=== PATIENT | female | born 1945 | race Caucasian/White ===

== ENCOUNTER 2017-07-05 19:53 | Inpatient (IN) | payer OTHER ==
[~2017-07-05] VITALS: Ht 175.3 cm; Wt 91.1 kg
[~2017-07-05 19:53] MED LIST: ASPI81TA28 PO; ATOR-24 PO; BIOF500T PO; CALC500C3 PO; COEN100C28 PO; GARL400T5 PO; GLUC1CAP35 PO; HYDR50TA3 PO; LISI-729 PO; METO25TA3 PO; MULT-190 PO; MULT-506 PO; OMEG12006 PO
[2017-07-05] MEDS ORDERED: SODIUM CHLORIDE 0.9% 1000ML 1,000 ML IV STA (20:06)
[2017-07-05 20:15] LABS: BASO % 0.1 %; BASO ABS # 0.02 K/uL (0-0.2); COMPLETE YES; EOS % 1.5 %; HEMATOCRIT 43.7 % (37-47); IG% 0.4 %; LYMPH % 16.9 %; LYMPH ABS # 2.42 K/uL (1.2-3.4); MEAN CELL VOLUME 91.2 fL (80-100); MEAN CORPUSCULAR HEMOGLOBIN 30.1 pg (25-34); MONO % 5.4 %; NEUT % 75.7 %; PLATELET COUNT 269 K/uL (130-400); RED BLOOD COUNT 4.79 M/uL (4.2-5.4); WHITE BLOOD COUNT 14.32 K/uL (4.8-10.8)
--- NOTE | 2017-07-05 20:20 | EMERGENCY ROOM VISIT NOTE ---
History Report prepared by Howard: Shayna Conner Under the Supervision of: Dr. Kaushik Soto M.D. First contact with patient: 19:55 Stated Complaint: SYNCOPE History of Present Illness The patient is a 71 year old female who presents to the Emergency Room with complaints of an episode of syncope occurring prior to arrival. Per EMS, the patient had a single syncopal episode in [employer] and has a cardiac history. The patient states that she felt like she had tunnel vision and felt white around her neck. She notes that she last ate crackers and tomato juice for dinner three hours ago. She notes that she had meat at lunch and that this is a normal dinner for her. The patient complains of nausea. The patient denies any strenuous activity and is unsure if she ever passed out before. The patient notes that she is scheduled for a stress test five days from now. Source of History: patient Onset: occurring prior to arrival Position: other (global) Quality: other (global) Timing: other (episode) Associated Symptoms: + nausea Note: The patient complains of tunnel like vision and feeling white around her neck. The patient denies any recent strenuous activity. Review of Systems See HPI for pertinent positives & negatives. A total of 10 systems reviewed and were otherwise negative. Past Medical & Surgical Medical Problems: (1) Benign hypertension (2) Carotid endarterectomy (3) Hyperlipidemia Family History Heart disease Social History Smoking Status: Never Smoker Alcohol Use: none Housing Status: lives alone Occupation Status: employed Current/Historical Medications Scheduled Aspirin (Aspirin Ec), 81 MG PO QPM Atorvastatin (Lipitor), 40 MG PO QPM Bioflavonoid Products (Christy-C), 500-550 MG PO QAM Coenzyme Q10 (Ubidecarenone) (Co Q10), 100 MG PO QAM Garlic (Garlique), 400 MG PO QAM Qkgjzegghtb-Dyxqlffyihc-Pnl C- (Glucosamine Chondroitin), 1 CAP PO QAM Hydrochlorothiazide (Hctz), 50 MG PO QPM Lisinopril (Prinivil), 5 MG PO QPM Metoprolol Succ (Toprol Xl) (Toprol-Xl), 12.5 MG PO QPM Multivitamin (Multivitamin), 1 TAB PO QAM Ocuvite Preservision (Ocuvite Preservision), 1 TAB PO QAM Bradley-3 Fatty Acids (Bradley 3), 1 CAP PO QAM Allergies Coded Allergies: Aspirin (Unverified Allergy, Mild, HIVES, 07/05/17) Physical Exam Vital Signs Date Time Temp Pulse Resp B/P (MAP) Pulse Ox O2 Delivery O2 Flow Rate FiO2 07/05/17 22:43 107 28 07/05/17 22:38 109 23 07/05/17 22:33 97 27 95 07/05/17 22:28 109 32 93 07/05/17 22:23 107 28 93 07/05/17 22:18 108 26 95 07/05/17 22:13 108 27 95 07/05/17 22:08 107 26 94 07/05/17 22:03 108 25 98 07/05/17 21:58 108 29 99 07/05/17 21:48 104 21 92 07/05/17 21:43 104 23 96 07/05/17 21:38 99 22 90 07/05/17 21:33 102 25 95 07/05/17 21:30 149/69 07/05/17 21:28 101 26 91 07/05/17 21:23 101 15 89 07/05/17 21:18 100 9 93 07/05/17 21:13 102 23 96 07/05/17 21:08 102 28 93 07/05/17 21:03 103 18 98 07/05/17 21:01 139/83 07/05/17 20:58 93 25 97 07/05/17 20:53 98 27 95 07/05/17 20:52 97 140/72 Room Air 102 151/85 109 143/82 07/05/17 20:52 96 Room Air 07/05/17 20:48 98 17 07/05/17 20:47 143/82 07/05/17 20:46 151/85 07/05/17 20:44 140/72 07/05/17 20:43 97 21 100 07/05/17 20:38 97 20 99 07/05/17 20:33 95 30 98 07/05/17 20:30 140/82 07/05/17 20:28 95 27 97 07/05/17 20:23 97 21 98 07/05/17 20:22 96 Room Air 07/05/17 20:22 36.5 100 18 149/84 96 Room Air 07/05/17 20:18 93 13 96 07/05/17 20:13 96 19 07/05/17 20:10 96 07/05/17 20:08 97 26 99 07/05/17 20:03 144/84 Physical Exam GENERAL: Patient is a healthy-appearing well-nourished HEAD: Normocephalic atraumatic EYES: Ocular movements intact pupils equal and react to light OROPHARYNX mucous membranes are moist no exudates present no erythema or edema present NECK: Supple no nuchal rigidity CHEST: Good equal expansion LUNGS: Clear and equal to auscultation CARDIAC: Normal S1 and S2 ABDOMEN: Soft nontender no guarding BACK: No CVA tenderness EXTREMITIES: No pain upon palpation normal muscle strength in all groups no clubbing cyanosis or edema NEURO: Patient is following commands and answering questions appropriately. Alert and oriented x3 Cranial Nerves 2-12 grossly intact Medical Decision & Procedures ER Provider Diagnostic Interpretation: Radiology results as stated below per my review and radiologist interpretation: CHEST ONE VIEW PORTABLE HISTORY: Pt c/o syncope COMPARISON: None. FINDINGS: The lungs are clear. Cardiac silhouette is normal in size. No pleural effusions. No pneumothorax. IMPRESSION: No acute process. Electronically signed by: Papito Mann M.D. 07/05/2017 9:15 PM Dictated Date/Time: 07/05/2017 9:14 PM Laboratory Results 07/05/17 19:42 Red Blood Count 4.79, Mean Corpuscular Volume 91.2, Mean Corpuscular Hemoglobin 30.1, Mean Corpuscular Hemoglobin Concent 33.0, Mean Platelet Volume 10.0, Neutrophils (%) (Auto) 75.7, Lymphocytes (%) (Auto) 16.9, Monocytes (%) (Auto) 5.4, Eosinophils (%) (Auto) 1.5, Basophils (%) (Auto) 0.1, Neutrophils # (Auto) 10.83, Lymphocytes # (Auto) 2.42, Monocytes # (Auto) 0.78, Eosinophils # (Auto) 0.21, Basophils # (Auto) 0.02 07/05/17 19:42 Test 07/05/17 19:42 07/05/17 20:20 07/05/17 20:32 07/05/17 22:00 White Blood Count 14.32 K/uL (4.8-10.8) Red Blood Count 4.79 M/uL (4.2-5.4) Hemoglobin 14.4 g/dL (12.0-16.0) Hematocrit 43.7 % (37-47) Mean Corpuscular Volume 91.2 fL (80-100) Mean Corpuscular Hemoglobin 30.1 pg (25-34) Mean Corpuscular Hemoglobin Concent 33.0 g/dl (32-36) Platelet Count 269 K/uL (130-400) Mean Platelet Volume 10.0 fL (7.4-10.4) Neutrophils (%) (Auto) 75.7 % Lymphocytes (%) (Auto) 16.9 % Monocytes (%) (Auto) 5.4 % Eosinophils (%) (Auto) 1.5 % Basophils (%) (Auto) 0.1 % Neutrophils # (Auto) 10.83 K/uL (1.4-6.5) Lymphocytes # (Auto) 2.42 K/uL (1.2-3.4) Monocytes # (Auto) 0.78 K/uL (0.11-0.59) Eosinophils # (Auto) 0.21 K/uL (0-0.5) Basophils # (Auto) 0.02 K/uL (0-0.2) RDW Standard Deviation 43.2 fL (36.4-46.3) RDW Coefficient of Variation 13.1 % (11.5-14.5) Immature Granulocyte % (Auto) 0.4 % Immature Granulocyte # (Auto) 0.06 K/uL (0.00-0.02) D-Dimer 460 ug/L FEU (0-500) Est Creatinine Clear Calc Drug Dose 63.3 ml/min Estimated GFR () 68.1 Estimated GFR (Non- 58.8 BUN/Creatinine Ratio 25.2 (10-20) Calcium Level 9.7 mg/dl (8.5-10.1) Magnesium Level 1.9 mg/dl (1.8-2.4) Total Bilirubin 0.8 mg/dl (0.2-1) Direct Bilirubin 0.2 mg/dl (0-0.2) Aspartate Amino Transf (AST/SGOT) 28 U/L (15-37) Alanine Aminotransferase (ALT/SGPT) 36 U/L (12-78) Alkaline Phosphatase 110 U/L (45-117) Total Creatine Kinase 131 U/L (26-192) Creatine Kinase MB 2.8 ng/ml (0.5-3.6) Creatine Kinase MB Ratio 2.1 (0-3.0) Troponin I < 0.015 ng/ml (0-0.045) Total Protein 8.1 gm/dl (6.4-8.2) Albumin 3.8 gm/dl (3.4-5.0) Thyroid Stimulating Hormone (TSH) 7.300 uIu/ml (0.300-4.500) Free Thyroxine 1.04 ng/dl (0.80-1.60) Free Triiodothyronine 2.88 pg/ml (2.30-4.20) Bedside Hemoglobin 14.3 g/dl (12.0-16.0) Bedside Hematocrit 42 % (37-47) Bedside Sodium 141 mEq/L (135-144) Bedside Potassium 3.3 mEq/L (3.3-5.0) Bedside Chloride 102 mEq/L (101-112) Bedside Total CO2 27 mEq/l (24-31) Anion Gap 16.0 mmol/L (16-25) Bedside Blood Urea Nitrogen 25 mg/dl (7-18) Bedside Creatinine 0.8 mg/dl (0.6-1.3) Bedside Glucose (other) 123 mg/dl (70-99) Bedside Ionized Calcium (Cynthia) 1.13 mmol/l (1.12-1.32) Bedside D-Dimer > 450 ng/mlFEU (0-450) Urine Color YELLOW Urine Appearance CLOUDY (CLEAR) Urine pH 5.5 (4.5-7.5) Urine Specific [place] 1.025 (1.000-1.030) Urine Protein NEG (NEG) Urine Glucose (UA) NEG (NEG) Urine Ketones TRACE (NEG) Urine Occult Blood NEG (NEG) Urine Nitrite NEG (NEG) Urine Bilirubin NEG (NEG) Urine Urobilinogen NEG (NEG) Urine Leukocyte Esterase MODERATE (NEG) Urine WBC (Auto) 10-30 /hpf (0-5) Urine RBC (Auto) 0-4 /hpf (0-4) Urine Hyaline Casts (Auto) 1-5 /lpf (0-5) Urine Epithelial Cells (Auto) >30 /lpf (0-5) Urine Bacteria (Auto) 3+ (NEG) Urine Pathogenic Casts /lpf (0) Test 07/05/17 23:17 Lactic Acid Level 1.7 mmol/L (0.4-2.0) Labs reviewed by ED physician. Medications Administered Medications (Trade) Dose Ordered Sig/Ellie Route Start Time Stop Time Status Last Admin Dose Admin Sodium Chloride 1,000 ml @ 999 mls/hr Q1H1M STAT IV 07/05/17 20:06 07/05/17 21:06 DC 07/05/17 20:06 999 MLS/HR Potassium Chloride (Gely Ciel Elix) 70 meq NOW STAT PO 07/05/17 20:22 07/05/17 20:24 DC 07/05/17 20:43 70 MEQ Ondansetron HCl (Zofran Inj) 4 mg NOW STAT IV 07/05/17 21:10 07/05/17 21:11 DC 07/05/17 21:18 4 MG Ceftriaxone Sodium (Rocephin Inj) 1 gm NOW STAT IV 07/05/17 22:20 07/05/17 22:21 DC 07/05/17 22:35 1 GM Promethazine HCl 12.5 mg/Sodium Chloride 50.5 ml @ 204 mls/hr NOW STAT IV 07/06/17 00:07 07/06/17 00:21 DC 07/06/17 00:44 204 MLS/HR ECG Indication: syncope Rate (beats per minute): 96 Rhythm: normal sinus Findings: no acute ischemic change, no ectopy Comparison ECG Date: October 28, 2013 Change: no significant change ED Course 1955: Past medical records reviewed. The patient was evaluated in room B12B. A complete history and physical examination was performed. 2005: Ordered NSS 1000 ml @ 999 mls/hr IV. 2021: Ordered Potassium Chloride 70 meq PO. 2109: Ordered Zofran Inj 4 mg IV. 2157: I reevaluated the patient and she is doing well. I updated her family. 2219: Ordered Rocephin Inj 1 gm IV. 2250: I reevaluated the patient and she is doing okay. 2305: I discussed the patient's case with Dr. Hunter, he has agreed to evaluate the patient for further management and care. Medical Decision Etiologies such as vasovagal event, infection, hypoglycemia, electrolyte abnormalities, cardiac sources, intracerebral event, toxicologic, neurologic, as well as others were entertained. This is a 71-year-old female who presents emergency department after having a syncopal episode. The patient is scheduled for stress test on Sunday. She does appear to have a urinary tract infection was started on Rocephin. In addition due to error, two d-dimers were run on this patient. The laboratory 1 which I feel is more accurate was found to be normal. The patient was given fluid bolus in the emergency department however she vomited up her potassium. I did discuss the case with the hospitalist service who agreed to admit the patient. Patient was in agreement with the treatment plan. Medication Reconcilliation Current Medication List: was personally reviewed by me Blood Pressure Screening Patient's blood pressure: Elevated blood pressure Will be further monitored by the hospitalist. Consults Time Called: [phone] Consulting Physician: Dr. Hunter Returned Call: [phone] I discussed the patient's case with Dr. Hunter, he has agreed to evaluate the patient for further management and care. Impression Primary Impression: Syncope Additional Impressions: UTI (urinary tract infection) Chest pain Scribe Attestation The scribe's documentation has been prepared under my direction and personally reviewed by me in its entirety. I confirm that the note above accurately reflects all work, treatment, procedures, and medical decision making performed by me. Departure Information Dispostion Being Evaluated By Hospitalist Referrals Kiesha Hernández D.O. (PCP) Problem Qualifiers Primary Impression: Syncope Syncope type: unspecified Qualified Codes: R55 - Syncope and collapse Additional Impressions: UTI (urinary tract infection) Urinary tract infection type: acute cystitis Hematuria presence: without hematuria Qualified Codes: N30.00 - Acute cystitis without hematuria Chest pain Chest pain type: unspecified Qualified Codes: R07.9 - Chest pain, unspecified
[2017-07-05] MEDS ORDERED: POTASSIUM CHLORIDE 20 MEQ/15 ML UDC PO STA (20:22)
[2017-07-05 20:32] LABS: ISTAT CREATININE 0.8 mg/dl (0.6-1.3); ISTAT HEMOGLOBIN 14.3 g/dl (12.0-16.0); ISTAT IONIZED CALCIUM 1.13 mmol/l (1.12-1.32)
[2017-07-05 20:36] LABS: ALT/SGPT 36 U/L (12-78); BLOOD UREA NITROGEN 25 mg/dl (7-18); BUN/CREATININE RATIO 25.2 (10-20); CALCIUM 9.7 mg/dl (8.5-10.1); CARBON DIOXIDE 30 mmol/L (21-32); CHLORIDE 99 mmol/L (98-107); CREATININE 0.97 mg/dl (0.60-1.20); GLUCOSE 134 mg/dl (70-99); POTASSIUM 3.5 mmol/L (3.5-5.1); SODIUM 140 mmol/L (136-145)
[2017-07-05 20:46] LABS: ALKALINE PHOSPHATASE 110 U/L (45-117); AST/SGOT 28 U/L (15-37); CKMB/CK RATIO 2.1 (0-3.0)
[2017-07-05] MEDS ORDERED: ONDANSETRON INJ 2 MG/ML 2 ML VIAL IV STA (21:10)
--- NOTE | 2017-07-05 21:16 | DIAGNOSTIC IMAGING REPORT ---
CHEST ONE VIEW PORTABLE HISTORY: Pt c/o syncope COMPARISON: None. FINDINGS: The lungs are clear. Cardiac silhouette is normal in size. No pleural effusions. No pneumothorax. IMPRESSION: No acute process. Electronically signed by: Papito Mann M.D. 07/05/2017 9:15 PM Dictated Date/Time: 07/05/2017 9:14 PM
[2017-07-05] MEDS ORDERED: CEFTRIAXONE SOD INJ 1 GM ADDVIAL IV STA (22:20)
[2017-07-05 22:36] LABS: URINE APPEARANCE CLOUDY (CLEAR); URINE BILIRUBIN NEG (NEG); URINE COLOR YELLOW; URINE EPITHELIAL CELL AUTO >30 /lpf (0-5); URINE NITRITE NEG (NEG); URINE PH 5.5 (4.5-7.5); URINE SPECIFIC GRAVITY 1.025 (1.000-1.030); UROBILINOGEN NEG (NEG)
[2017-07-05 22:38] LABS: MANUAL MICROSCOPIC REQUIRED? NO; REVIEW REQ? YES
[2017-07-05 22:47] LABS: ZZUR CULT IF INDIC CLEAN CATCH YES
[2017-07-05 23:31] LABS: MAGNESIUM 1.9 mg/dl (1.8-2.4)
[2017-07-06] VITALS (11 sets, daily range): BP systolic 111–138; BP diastolic 70–91; PULSE 82–121; TEMP 36.4–37.8; O2SAT 90–97; Ht 175.3 cm; Wt 91.1 kg
[2017-07-06] MEDS ORDERED: PROMETHAZINE HCL INJ 12.5 MG in SODIUM CHLORIDE 0.9% 50ML 50 ML IV STA (00:07)
[2017-07-06] MEDS ORDERED: OPTIRAY 320 IV PRN (00:15)
[2017-07-06] MEDS ORDERED: METOPROLOL SUCC 25MG EXT REL TAB PO ONE (01:12)
[2017-07-06] MEDS ORDERED: PANTOprazole INJ 40 MG in SYRINGE 0 ML IV STA (01:13)
[2017-07-06] MEDS ORDERED: TRAMADOL HCL 50 MG TAB PO PRN (01:15)
[2017-07-06] MEDS ORDERED: NITROGLYCERIN 0.4 MG SL PER TAB CHARGE SL PRN (01:15)
[2017-07-06] MEDS ORDERED: ONDANSETRON INJ 2 MG/ML 2 ML VIAL IV PRN (01:15)
[2017-07-06] MEDS ORDERED: ACETAMINOPHEN 325 MG TAB PO PRN (01:15)
[2017-07-06] MEDS ORDERED: LACTATED RINGER'S 1000ML 1,000 ML IV SCH (01:30)
[2017-07-06] MEDS ORDERED: LACTATED RINGER'S 1000ML 1,000 ML IV ONE (02:30)
[2017-07-06] MEDS ORDERED: ACETAMINOPHEN 325 MG TAB PO ONE (04:08)
--- NOTE | 2017-07-06 06:15 | HISTORY & PHYSICAL EXAMINATION ---
DATE OF ADMISSION: 07/06/2017 PRIMARY CARE DOCTOR: Dr. Hernádnez CHIEF COMPLAINT: Syncope. HISTORY OF PRESENT ILLNESS: History obtained from the patient, family, and records. Medical history is significant for hypertension, PVD status post surgery, hyperlipidemia. Recent confinement was in October 2013 for complicated migraine with transient global amnesia. Patient was seen at the PCP's office about 3 weeks ago. Patient complained to the PCP of occasional chest pain with exertion, tightness and squeezing. No other symptoms. Outpatient stress test was recommended. Yesterday morning, she was not feeling very well, had reflux symptoms going to her throat, achy epigastric discomfort with some nausea. Denies bladder symptoms. Bowel movement. She was at [employer] with her son when patient was noted to look uncomfortable.. She told her son that she needed to go to a hospital. Patient passed out for a few seconds. Patient also complaining of some left-sided headache symptoms, achy, similar to migraine attack. No incontinence, no tongue biting, no witnessed seizure activity. Patient was brought to the Emergency Room. She had an episode of emesis. Given ceftriaxone for possible UTI. MEDICAL HISTORY: As above. Carotid Dopplers done in September 2016 showed less than 60% stenosis both carotids. SURGERIES: Carotid endarterectomy and vaginal myomectomy of cervical fibroid. HOME MEDICATIONS: Include; aspirin, Lipitor, Coenzyme Q, garlic, glucosamine, HCTZ, lisinopril, Toprol, multivitamins, omega 3 and Ocuvite. ALLERGIES: TO ASPIRIN IN EXCESSIVE AMOUNTS, WHICH CAUSES HIVES. FAMILY HISTORY: Heart disease, thyroid disease, diabetes and hypertension. PERSONAL AND SOCIAL HISTORY: Nonsmoker. No chronic intake of alcoholic beverages. Retired [employer] employee. REVIEW OF SYSTEMS: As per HPI. All 10 systems were reviewed. All other ROS negative. PHYSICAL EXAMINATION: VITAL SIGNS: Blood pressure was noted to be 151/85, pulse rate 102, RR 25, temperature 37.8 and sats 91 on room air. GENERAL: Noted to be slightly uncomfortable in no respiratory distress. Orthostatic vitals were negative. SKIN: Normal color. Warm. HEENT: [place] palpebral conjuctivae. No ptosis. Dry buccal mucosa. NECK: No JVD. Supple. No tenderness. CHEST: Clear to auscultation. No tenderness. HEART: Regular rate and rhythm. No murmur. ABDOMEN: Some distension, nontender. EXTREMITIES: Minimal LE edema, no tenderness. No gross deformities noted on exam NE coherent, no gross focality. LABORATORIES: Hemoglobin was noted to be 14.4, hematocrit 40.7, white cell count 14 and platelets 269. Sodium was noted to be 140, potassium 3.5, chloride 99, CO2 30, BUN 25, creatinine 0.9 and glucose 134. UA; trace ketones, moderate WBC positive. CTA initial read; no pulmonary embolism. CT abdomen and pelvis initial read : atelectasis, sludge gallbladder, moderate amount of stool, abnormality left adnexa. CT head; no acute pathology. ASSESSMENT: 1. Syncope likely vasovagal from abdominal pain from uncontrolled GERD, urinary tract infection, possible sepsis. rule out cardiac dysfunction. 2. Hypertension, slightly elevated. 3. Peripheral vascular disease, status post surgery 4. Abnormal left adnexa on initial CT abdomen and pelvis read. PLAN: PCU PPI trial CS, IV ceftriaxone for now Hold home diuretics for now. TTE RE syncope Follow official CT abdomen and pelvis results. May need a pelvic ultrasound, outpatient Civil Service Clerk consult pending CT results PT/OT. DVT prophylaxis, Lovenox subQ. Full code. The patient's daughter is requesting for updates from provider ____ [phone]. MTDD
[2017-07-06 06:19] LABS: BASO % 0.1 %; BASO ABS # 0.01 K/uL (0-0.2); COMPLETE YES; EOS % 0.1 %; HEMATOCRIT 39.5 % (37-47); IG% 0.3 %; LYMPH % 2.9 %; LYMPH ABS # 0.41 K/uL (1.2-3.4); MEAN CELL VOLUME 91.4 fL (80-100); MEAN CORPUSCULAR HEMOGLOBIN 29.4 pg (25-34); MEAN CORPUSCULAR HGB CONC 32.2 g/dl (32-36); MEAN PLATELET VOLUME 9.7 fL (7.4-10.4); MONO % 2.7 %; NEUT % 93.9 %; PLATELET COUNT 231 K/uL (130-400); RED BLOOD COUNT 4.32 M/uL (4.2-5.4); WHITE BLOOD COUNT 14.36 K/uL (4.8-10.8)
[2017-07-06 06:29] LABS: INR 1.1 (0.9-1.1); PROTHROMBIN TIME (PATIENT) 11.4 SECONDS (9.0-12.0)
[2017-07-06 06:56] LABS: BLOOD UREA NITROGEN 24 mg/dl (7-18); BUN/CREATININE RATIO 31.3 (10-20); CALCIUM 8.3 mg/dl (8.5-10.1); CARBON DIOXIDE 29 mmol/L (21-32); CHLORIDE 106 mmol/L (98-107); CREATININE 0.78 mg/dl (0.60-1.20); GLUCOSE 120 mg/dl (70-99); POTASSIUM 4.1 mmol/L (3.5-5.1); SODIUM 140 mmol/L (136-145)
--- NOTE | 2017-07-06 07:10 | DIAGNOSTIC IMAGING REPORT ---
ABD/PELVIS IV CONTRAST ONLY CT DOSE: HISTORY: Pain abd pain TECHNIQUE: Multiaxial CT images of the abdomen and pelvis were performed following the use of intravenous contrast. A dose lowering technique was utilized adhering to the principles of ALARA. COMPARISON STUDY: None. FINDINGS: Minimal dependent basilar atelectasis. Liver is uniform. Spleen is unremarkable. Dependent sludge within the gallbladder lumen with potential polypoid change of the gallbladder fundus. Nonobstructive bowel pattern. Normal appendix. 1.5 cm right ovarian cyst. 4.5 cm left lateral exophytic uterine fibroid. No evidence for left ovarian enlargement. No free fluid in the pelvic cul-de-sac. Bladder is midline. IMPRESSION: 1. Left lateral 4.5 cm exophytic uterine fibroid. 2. Smaller 1.7 cm posterior lower uterine segment uterine fibroid. 3. 1.5 cm right ovarian cyst. 4. Sludge and/or debris within the dependent aspect of the gallbladder. Several small gallbladder fundal polyps. The above report was generated using voice recognition software. It may contain grammatical, syntax or spelling errors. Electronically signed by: Froylan Alcantara M.D. 07/06/2017 7:09 AM Dictated Date/Time: 07/06/2017 7:05 AM
--- NOTE | 2017-07-06 07:12 | DIAGNOSTIC IMAGING REPORT ---
(CHEST FOR PE) ANGIO WITH CT DOSE: 1174.01 mGy.cm HISTORY: 71 years-old Female presents with acute atypical chest pain and shortness of breath TECHNIQUE: Multiple CTA images of the chest were obtained after the intravenous administration of 93 ml Optiray 320. Coronal and sagittal MIPS were obtained from the axial data set and were submitted for review. A dose lowering technique was utilized adhering to the principles of ALARA. COMPARISON: Chest radiograph 07/05/2017. FINDINGS: CTA: Heart is mildly enlarged. No pericardial effusion. Coronary arterial calcifications are noted. The thoracic aorta is normal in course and caliber with moderate mixed plaquing. Aberrant right subclavian artery within a retroesophageal location is noted causing mild mass effect and compression of the adjacent esophagus. No aortic dissection or aneurysm. The pulmonary arterial tree is opacified to level of the distal segmental branches. The subsegmental branches are not well-seen secondary to respiratory motion. No focal filling defects identified to suggest pulmonary thromboembolic disease. CT CHEST: No dominant thyroid nodule identified. No pathologic adenopathy about the chest. There is no pneumothorax, pleural effusion, focal airspace consolidation or overt pulmonary edema. Mild dependent bibasilar atelectasis. There are a few scattered solid noncalcified nodules throughout the lungs bilaterally (please see bookmarks), the largest of which is within the lingula measuring 6 mm as seen on image 176 series 4. The remaining nodules measure 2-4 mm. Central airways are patent. Upper abdominal structures demonstrate no acute abnormality. Cholelithiasis without CT evidence of acute cholecystitis. Soft tissues are unremarkable. Bones appear intact. Multilevel endplate spurring of the spine. IMPRESSION: 1. No acute intrathoracic abnormality identified. No acute aortic pathology or evidence of pulmonary thromboembolic disease. 2. Several solid noncalcified pulmonary nodules are present bilaterally, largest of which is within the lingula measuring 6 mm. Follow-up guidelines provided below. 3. Aberrant right subclavian artery. 4. Mild cardiomegaly. Please refer to below summary of Fleischner criteria recommendations for follow-up of incidental CT nodules (Jammie Parekh, Guidelines for management of small pulmonary nodules detected on CT scans: A statement from the Fleischner Society, Radiology 237: [phone].) SOLID NODULES Multiple nodules size: <6 mm * Low risk patients: no routine follow-up * high risk patients: optional CT at 12 months Multiple nodules size: 6-8 mm * Low risk patients: follow-up at 3-6 months, then consider further follow-up at 18-24 months * high risk patients: follow-up at 3-6 months, then at 18-24 months if no change Note: newly detected indeterminate nodule in persons 35 years of age or older. * Low risk patients: minimal or absent history of smoking and/or other known risk factors * high risk patients: history of smoking or of other known risk factors (e.g. first degree relative with lung cancer, or exposure to asbestos, radon, uranium) * if a nodule up to 8 mm is partly solid or is ground glass further follow-up is required after 24 months to exclude possible slow growing adenocarcinoma (CRISTELA) The above report was generated using voice recognition software. It may contain grammatical, syntax or spelling errors. Electronically signed by: William Llanos M.D. 07/06/2017 7:10 AM Dictated Date/Time: 07/06/2017 7:02 AM
--- NOTE | 2017-07-06 07:25 | DIAGNOSTIC IMAGING REPORT ---
HEAD WITHOUT CONTRAST (CT) CLINICAL HISTORY: 71 years-old Female presenting with left-sided headache, syncope. TECHNIQUE: Multidetector CT imaging of the head was performed without the use of intravenous contrast. IV contrast: None. A dose lowering technique was used consistent with the principles of ALARA (as low as reasonably achievable). COMPARISON: CT head from 10/25/2013. CT DOSE (mGy.cm): The estimated cumulative dose is 614.27 mGy.cm. FINDINGS: Catalogue Clerk topogram: Unremarkable. Ventricles and sulci normal in size. Periventricular and subcortical white matter hypoattenuation, nonspecific but likely indicative of chronic small vessel ischemic change. No mass effect or midline shift. No hemorrhage or acute territorial infarct. No extra-axial fluid collection. Paranasal sinuses and mastoid air cells clear. Calvarium intact. IMPRESSION: 1. No acute intracranial abnormality. Electronically signed by: Michael Zepeda M.D. 07/06/2017 7:24 AM Dictated Date/Time: 07/06/2017 7:08 AM
[2017-07-06] MEDS: ENOXAPARIN 40 MG/0.4 ML SYR SC SCH (07:36)
[2017-07-06] MEDS: MULTIVITAMIN TAB PO SCH (07:36)
--- NOTE | 2017-07-06 08:22 | ECHOCARDIOGRAM REPORT ---
*NOTICE TO RECEIVING REPUBLICAN AGENCY This information is strictly Confidential and protected under [place] law. [place] law prohibits you from making any further disclosure of this information unless further disclosure is expressly permitted by the written consent of the person to whom it pertains or is authorized by law. A general authorization for the release of medical or other information is not sufficient for this purpose. Hospital accepts no responsibility if the information is made available to any other person, INCLUDING THE PATIENT. Interpretation Summary * Name: KENRICK PAIZ Study Date: 07/06/2017 07:12 AM BP: 117/70 mmHg * Patient Location: [facility] HR: 104 * : 1945 (M/d/yyyy) Gender: Female Height: 69 in * Age: 71 yrs Ethnicity: CA Weight: 196 lb * Ordering Physician: Pako Hunter * Referring Physician: Self, Referred * Performed By: Liz Rivera RCS * * Reason For Study: SYNCOPE * BSA: 2.0 m2 * -- Conclusions -- * Normal LV chamber size with mild concentric LVH. * Normal LV systolic function, EF 60-65%. * No segmental left ventricular wall motion abnormalities are noted. * Grade I diastolic dysfunction. * Aortic valve sclerosis moderate, without significant aortic valvular stenosis. Procedure Details * A complete two-dimensional transthoracic echocardiogram was performed (2D, M-mode, Doppler and color flow Doppler). Left Ventricle * The left ventricle is normal in size. * There is mild concentric left ventricular hypertrophy. * Left ventricular systolic function is normal. * No segmental left ventricular wall motion abnormalities are noted. * Ejection Fraction = 60-65%. * The left ventricular wall motion is normal. Right Ventricle * The right ventricular cavity size is normal (basal dimension <4.2 cm in right ventricular apical 4-chamber view). * The right ventricular systolic function is normal as assessed by tricuspid annular plane systolic excursion (TAPSE) (normal >1.5 cm). Atria * The left atrial size is normal. * Right atrial size is normal. * No ASD detected; PFO is not assessed. Mitral Valve * The mitral valve is normal in structure and function. Tricuspid Valve * The tricuspid valve is normal in structure and function. Aortic Valve * The aortic valve is trileaflet. * Aortic valve sclerosis moderate, without significant aortic valvular stenosis. * There is no significant aortic regurgitation. Pulmonic Valve * The pulmonary valve is not well seen, but the Doppler examination is normal without significant regurgitation or stenosis. Great Vessels * The aortic root is normal size. Pericardium/Pleural * There is no pericardial effusion. Left Ventricular Diastolic Function * Grade I diastolic dysfunction, (abnormal relaxation pattern). MMode 2D Measurements and Calculations IVSd 1.2 cm IVSs 1.8 cm LVIDd 3.8 cm LVIDs 2.3 cm LVPWd 1.1 cm LVPWs 1.5 cm IVS/LVPW 1.1 FS 40.6 % EDV(Teich) 62.9 ml ESV(Teich) 17.6 ml EF(Teich) 72.0 % EDV(cubed) 56.0 ml ESV(cubed) 11.8 ml EF(cubed) 79.0 % % IVS thick 46.5 % % LVPW thick 34.7 % LV mass(C)d 144.6 grams LV mass(C)dI 70.6 grams/m\S\2 LV mass(C)s 129.7 grams LV mass(C)sI 63.3 grams/m\S\2 SV(Teich) 45.3 ml SI(Teich) 22.1 ml/m\S\2 SV(cubed) 44.2 ml SI(cubed) 21.6 ml/m\S\2 Ao root diam 2.8 cm Ao root area 6.3 cm\S\2 ACS 1.8 cm LA dimension 3.2 cm LA/Ao 1.1 LVOT diam 2.0 cm LVOT area 3.0 cm\S\2 LVAd ap4 32.0 cm\S\2 LVLd ap4 7.6 cm EDV(MOD-sp4) 109.0 ml EDV(sp4-el) 113.6 ml LVAs ap4 19.8 cm\S\2 LVLs ap4 6.5 cm ESV(MOD-sp4) 49.8 ml ESV(sp4-el) 51.4 ml EF(MOD-sp4) 54.3 % EF(sp4-el) 54.8 % LVAd ap2 25.6 cm\S\2 LVLd ap2 7.2 cm EDV(MOD-sp2) 74.1 ml EDV(sp2-el) 76.8 ml LVAs ap2 16.3 cm\S\2 LVLs ap2 5.7 cm ESV(MOD-sp2) 38.3 ml ESV(sp2-el) 39.4 ml EF(MOD-sp2) 48.2 % EF(sp2-el) 48.7 % LVLd %diff -5.76 % EDV(MOD-bp) 92.8 ml LVLs %diff -13.22 % ESV(MOD-bp) 46.1 ml EF(MOD-bp) 50.3 % SV(MOD-sp4) 59.2 ml SI(MOD-sp4) 28.9 ml/m\S\2 SV(MOD-sp2) 35.7 ml SI(MOD-sp2) 17.4 ml/m\S\2 SV(MOD-bp) 46.7 ml SI(MOD-bp) 22.8 ml/m\S\2 SV(sp4-el) 62.2 ml SI(sp4-el) 30.4 ml/m\S\2 SV(sp2-el) 37.4 ml SI(sp2-el) 18.2 ml/m\S\2 Doppler Measurements and Calculations MV E max miguel 87.9 cm/sec MV A max miguel 134.3 cm/sec MV E/A 0.65 MV P1/2t max miguel 100.9 cm/sec MV P1/2t 51.5 msec MVA(P1/2t) 4.3 cm\S\2 MV dec slope 574.2 cm/sec\S\2 MV dec time 0.26 sec Ao V2 max 175.6 cm/sec Ao max PG 12.3 mmHg Ao max PG (full) 7.6 mmHg HIREN(V,A) 1.9 cm\S\2 HIREN(V,D) 1.9 cm\S\2 LV V1 max PG 4.7 mmHg LV V1 max 108.1 cm/sec PA V2 max 101.8 cm/sec PA max PG 4.1 mmHg TR max miguel 251.1 cm/sec
--- NOTE | 2017-07-06 16:42 | Progress Note ---
Medicine Progress Note Date & Time of Visit: Jul 06, 2017 at 16:10. Subjective Pt was seen and examined Lying in bed with no distress Pt said that she feels tired She said that she did not sleep well last night Because too much traffic in/out in her room She said that she tolerated regular diet Denies any chest pain, palpitation, dizziness and SOB Objective Last 8 Hrs Date Time Temp Pulse Resp B/P (MAP) Pulse Ox O2 Delivery O2 Flow Rate FiO2 07/06/17 15:00 37.1 82 18 127/73 (91) 94 Room Air 07/06/17 12:00 Room Air 07/06/17 11:17 37.1 94 18 138/76 (96) 94 Room Air Physical Exam: General- No acute distress Head- atraumatic Eyes- PERRL, EOMI ENT- oropharynx clear Neck- supple, no JVD Lungs- clear to auscultation Heart- regular rhythm; no murmur Abdomen- normal bowel sounds, soft Extremities- no pretibial edema, no calf tenderness Neuro- alert, oriented x 3; PERRL, EOMI; no facial palsy Skin- warm & dry Laboratory Results: Last 24 Hours Test 07/05/17 19:42 07/05/17 20:20 07/05/17 20:32 07/05/17 22:00 White Blood Count 14.32 K/uL Red Blood Count 4.79 M/uL Hemoglobin 14.4 g/dL Hematocrit 43.7 % Mean Corpuscular Volume 91.2 fL Mean Corpuscular Hemoglobin 30.1 pg Mean Corpuscular Hemoglobin Concent 33.0 g/dl Platelet Count 269 K/uL Mean Platelet Volume 10.0 fL Neutrophils (%) (Auto) 75.7 % Lymphocytes (%) (Auto) 16.9 % Monocytes (%) (Auto) 5.4 % Eosinophils (%) (Auto) 1.5 % Basophils (%) (Auto) 0.1 % Neutrophils # (Auto) 10.83 K/uL Lymphocytes # (Auto) 2.42 K/uL Monocytes # (Auto) 0.78 K/uL Eosinophils # (Auto) 0.21 K/uL Basophils # (Auto) 0.02 K/uL RDW Standard Deviation 43.2 fL RDW Coefficient of Variation 13.1 % Immature Granulocyte % (Auto) 0.4 % Immature Granulocyte # (Auto) 0.06 K/uL D-Dimer 460 ug/L FEU Sodium Level 140 mmol/L Potassium Level 3.5 mmol/L Chloride Level 99 mmol/L Carbon Dioxide Level 30 mmol/L Anion Gap 11.0 mmol/L 16.0 mmol/L Blood Urea Nitrogen 25 mg/dl Creatinine 0.97 mg/dl Est Creatinine Clear Calc Drug Dose 63.3 ml/min Estimated GFR () 68.1 Estimated GFR (Non- 58.8 BUN/Creatinine Ratio 25.2 Random Glucose 134 mg/dl Calcium Level 9.7 mg/dl Magnesium Level 1.9 mg/dl Total Bilirubin 0.8 mg/dl Direct Bilirubin 0.2 mg/dl Aspartate Amino Transf (AST/SGOT) 28 U/L Alanine Aminotransferase (ALT/SGPT) 36 U/L Alkaline Phosphatase 110 U/L Total Creatine Kinase 131 U/L Creatine Kinase MB 2.8 ng/ml Creatine Kinase MB Ratio 2.1 Troponin I < 0.015 ng/ml Total Protein 8.1 gm/dl Albumin 3.8 gm/dl Thyroid Stimulating Hormone (TSH) 7.300 uIu/ml Free Thyroxine 1.04 ng/dl Free Triiodothyronine 2.88 pg/ml Bedside Hemoglobin 14.3 g/dl Bedside Hematocrit 42 % Bedside Sodium 141 mEq/L Bedside Potassium 3.3 mEq/L Bedside Chloride 102 mEq/L Bedside Total CO2 27 mEq/l Bedside Blood Urea Nitrogen 25 mg/dl Bedside Creatinine 0.8 mg/dl Bedside Glucose (other) 123 mg/dl Bedside Ionized Calcium (Cynthia) 1.13 mmol/l Bedside D-Dimer > 450 ng/mlFEU Urine Color YELLOW Urine Appearance CLOUDY Urine pH 5.5 Urine Specific [place] 1.025 Urine Protein NEG Urine Glucose (UA) NEG Urine Ketones TRACE Urine Occult Blood NEG Urine Nitrite NEG Urine Bilirubin NEG Urine Urobilinogen NEG Urine Leukocyte Esterase MODERATE Urine WBC (Auto) 10-30 /hpf Urine RBC (Auto) 0-4 /hpf Urine Hyaline Casts (Auto) 1-5 /lpf Urine Epithelial Cells (Auto) >30 /lpf Urine Bacteria (Auto) 3+ Urine Pathogenic Casts /lpf Test 07/05/17 23:17 07/06/17 06:00 Lactic Acid Level 1.7 mmol/L White Blood Count 14.36 K/uL Red Blood Count 4.32 M/uL Hemoglobin 12.7 g/dL Hematocrit 39.5 % Mean Corpuscular Volume 91.4 fL Mean Corpuscular Hemoglobin 29.4 pg Mean Corpuscular Hemoglobin Concent 32.2 g/dl Platelet Count 231 K/uL Mean Platelet Volume 9.7 fL Neutrophils (%) (Auto) 93.9 % Lymphocytes (%) (Auto) 2.9 % Monocytes (%) (Auto) 2.7 % Eosinophils (%) (Auto) 0.1 % Basophils (%) (Auto) 0.1 % Neutrophils # (Auto) 13.48 K/uL Lymphocytes # (Auto) 0.41 K/uL Monocytes # (Auto) 0.39 K/uL Eosinophils # (Auto) 0.02 K/uL Basophils # (Auto) 0.01 K/uL RDW Standard Deviation 44.1 fL RDW Coefficient of Variation 13.3 % Immature Granulocyte % (Auto) 0.3 % Immature Granulocyte # (Auto) 0.05 K/uL Prothrombin Time 11.4 SECONDS Prothromb Time International Ratio 1.1 Sodium Level 140 mmol/L Potassium Level 4.1 mmol/L Chloride Level 106 mmol/L Carbon Dioxide Level 29 mmol/L Anion Gap 5.0 mmol/L Blood Urea Nitrogen 24 mg/dl Creatinine 0.78 mg/dl Est Creatinine Clear Calc Drug Dose 79.5 ml/min Estimated GFR () 88.6 Estimated GFR (Non- 76.5 BUN/Creatinine Ratio 31.3 Random Glucose 120 mg/dl Calcium Level 8.3 mg/dl Troponin I < 0.015 ng/ml Date/Time Source Procedure Growth Status 07/05/17 23:18 Blood Blood Culture Pending Received 07/05/17 23:13 Blood Blood Culture Pending Received 07/05/17 22:00 Urine , Clean Catch Urine Culture - Final MORE THAN THREE TYPES OF ORGANISMS MN... Complete Assessment & Plan Syncope Possible vasovagal CT head on admission showed no acute intracranial abnormality schedule for outpatient stress test on 07/10 Clinically stable ECHO showed * Normal LV chamber size with mild concentric LVH. * Normal LV systolic function, EF 60-65%. * No segmental left ventricular wall motion abnormalities are noted. * Grade I diastolic dysfunction. * Aortic valve sclerosis moderate, without significant aortic valvular stenosis. Abdominal discomfort GERD Tolerated clear liquid diet Diet advanced as tolerated Continue pantoprazole CT Abd/Pelvis showed Left lateral 4.5 cm exophytic uterine fibroid. 1.5 cm right ovarian cyst. Smaller 1.7 cm posterior lower uterine segment uterine fibroid. Elevated WBC Afebrile UA showed moderate leukocytes and 3+ bacteria Ucx grew more than 3 types of organisms On Rocephin Repeat urine follow up blood cx Continue monitor CBC Left uterine fibroid CT abd/pelvis showed left lateral 4.5 cm exophytic uterine fibroid. Will get pelvis u/s Consider outpatient [employer] consult Pulmonary nodules CT chest showed Several solid noncalcified pulmonary nodules are present bilaterally, largest of which is within the lingula measuring 6 mm. No history of smoking Follow up as per guideline Hypertension BP stable Continue lisinopril and metoprolol Peripheral vascular disease status post surgery Stable DVT px on lovenox subq Code Status FULL CODE Disposition Will discharge home tomorrow Current Inpatient Medications: Current Inpatient Medications Medications (Trade) Dose Ordered Sig/Ellie Route Start Time Stop Time Status Last Admin Dose Admin Ioversol (Optiray 320) 100 ml UD PRN IV 07/06/17 00:15 07/10/17 00:14 Enoxaparin Sodium (Lovenox Inj) 40 mg Q24H SC 07/06/17 09:00 08/05/17 08:59 07/06/17 07:36 40 MG Acetaminophen (Tylenol Tab) 650 mg Q4H PRN PO 07/06/17 01:15 08/05/17 01:14 Nitroglycerin (Nitrostat Tab) 0.4 mg UD PRN SL 07/06/17 01:15 08/05/17 01:14 Ondansetron HCl (Zofran Inj) 4 mg Q6H PRN IV 07/06/17 01:15 08/05/17 01:14 Tramadol HCl (Ultram Tab) 25 mg Q6H PRN PO 07/06/17 01:15 08/05/17 01:14 Pantoprazole Sodium (Protonix Tab) 40 mg QAM PO 07/07/17 09:00 08/06/17 08:59 Ceftriaxone Sodium 1 gm/ Dextrose 50 ml @ 100 mls/hr Q24H IV 07/06/17 23:00 07/09/17 23:29 Aspirin (Ecotrin Tab) 81 mg QPM PO 07/06/17 21:00 08/05/17 20:59 Atorvastatin Calcium (Lipitor Tab) 40 mg QPM PO 07/06/17 21:00 08/05/17 20:59 Lisinopril (Zestril Tab) 5 mg QPM PO 07/06/17 21:00 08/05/17 20:59 Metoprolol Succinate (Toprol Xl Tab) 12.5 mg QPM PO 07/06/17 21:00 08/05/17 20:59 Multivitamins (Multivitamin Tab) 1 tab QAM PO 07/06/17 09:00 08/05/17 08:59 07/06/17 07:36 1 TAB
[2017-07-06] MEDS ORDERED: METOPROLOL SUCC 25MG EXT REL TAB PO SCH (21:00)
[2017-07-06] MEDS ORDERED: ATORVASTATIN 20 MG TAB PO SCH (21:00)
[2017-07-06] MEDS ORDERED: LISINOPRIL 5 MG TAB PO SCH (21:00)
[2017-07-06] MEDS ORDERED: ASPIRIN 81 MG ECTAB PO SCH (21:00)
--- NOTE | 2017-07-06 21:26 | DIAGNOSTIC IMAGING REPORT ---
PELVIC ULTRASOUND CLINICAL HISTORY: Left lateral exophytic fibroid. COMPARISON STUDY: CT of the abdomen and pelvis July 06, 2017. TECHNIQUE: Transabdominal sonography of the pelvis was performed. FINDINGS: This exam is compromised given the lack of transvaginal imaging. The uterus measures 9.5 x 3.8 x 3.9 cm. Note is made of a 6.1 x 5.9 x 5.8 cm hypoechoic of the mildly along the left aspect of the uterine fundus which corresponds the abnormality shown on prior CT. Evaluation on this exam is significantly compromised given suboptimal penetration however this lesion is hypoechoic and favors a fibroid. The additional suspected uterine fibroid shown on prior CT is not visualized on this exam. Neither ovary was visualized on this transabdominal study. There was no free fluid. IMPRESSION: 1. Exam significantly compromised given lack of transvaginal imaging with suboptimal penetration. 6.1 cm hypoechoic abnormality along the left aspect of the uterine fundus which corresponds to the finding shown on prior CT. Although suboptimally assessed on this exam, this favors a fibroid. 2. Nonvisualization of the ovaries. Electronically signed by: Caleb Orozco M.D. 07/06/2017 9:24 PM Dictated Date/Time: 07/06/2017 9:19 PM
[2017-07-06] MEDS ORDERED: CEFTRIAXONE SOD INJ 1 GM in DEXTROSE 5% ADD-VANTAGE 50ML 50 ML IV SCH (23:00)
[2017-07-07 04:44] VITALS: BP 118/70; PULSE 78; TEMP 36.8; O2SAT 93
[2017-07-07 07:19] VITALS: BP 136/78; PULSE 78; TEMP 36.7; O2SAT 93
[2017-07-07 07:19] LABS: BASO % 0.5 %; BASO ABS # 0.03 K/uL (0-0.2); COMPLETE YES; EOS % 2.3 %; HEMATOCRIT 41.4 % (37-47); IG% 0.3 %; LYMPH % 21.3 %; LYMPH ABS # 1.22 K/uL (1.2-3.4); MEAN CELL VOLUME 92.2 fL (80-100); MEAN CORPUSCULAR HEMOGLOBIN 29.4 pg (25-34); MEAN CORPUSCULAR HGB CONC 31.9 g/dl (32-36); MEAN PLATELET VOLUME 9.7 fL (7.4-10.4); MONO % 10.6 %; PLATELET COUNT 230 K/uL (130-400); RED BLOOD COUNT 4.49 M/uL (4.2-5.4); WHITE BLOOD COUNT 5.73 K/uL (4.8-10.8)
[2017-07-07] MEDS: ENOXAPARIN 40 MG/0.4 ML SYR SC SCH (07:39)
[2017-07-07] MEDS: MULTIVITAMIN TAB PO SCH (07:39)
[2017-07-07] MEDS ORDERED: PANTOprazole SOD 40 MG TAB PO SCH (09:00)
[2017-07-07 11:28] VITALS: BP 133/75; PULSE 86; TEMP 36.8; O2SAT 93
[2017-07-07 11:56] VITALS: BP 133/75; PULSE 86; TEMP 36.8; O2SAT 93
--- NOTE | 2017-07-07 13:25 | Progress Note ---
Medicine Progress Note Date & Time of Visit: Jul 07, 2017 at 13:20. Subjective Pt was seen and examined Pt said that she feels much better She said that she slept well last night Denies any fever, chest pain, palpitation, dizziness and SOB Objective Last 8 Hrs Date Time Temp Pulse Resp B/P (MAP) Pulse Ox O2 Delivery O2 Flow Rate FiO2 07/07/17 11:56 36.8 86 18 93 Room Air 07/07/17 11:28 36.8 86 18 133/75 (94) 93 Room Air 07/07/17 08:00 Room Air 07/07/17 07:19 36.7 78 16 136/78 (97) 93 Physical Exam: General- No acute distress Head- atraumatic Eyes- PERRL, EOMI ENT- oropharynx clear Neck- supple, no JVD Lungs- clear to auscultation Heart- regular rhythm; no murmur Abdomen- normal bowel sounds, soft Extremities- no pretibial edema, no calf tenderness Neuro- alert, oriented x 3; PERRL, EOMI; no facial palsy Skin- warm & dry Laboratory Results: Last 24 Hours Test 07/07/17 06:46 White Blood Count 5.73 K/uL Red Blood Count 4.49 M/uL Hemoglobin 13.2 g/dL Hematocrit 41.4 % Mean Corpuscular Volume 92.2 fL Mean Corpuscular Hemoglobin 29.4 pg Mean Corpuscular Hemoglobin Concent 31.9 g/dl Platelet Count 230 K/uL Mean Platelet Volume 9.7 fL Neutrophils (%) (Auto) 65.0 % Lymphocytes (%) (Auto) 21.3 % Monocytes (%) (Auto) 10.6 % Eosinophils (%) (Auto) 2.3 % Basophils (%) (Auto) 0.5 % Neutrophils # (Auto) 3.72 K/uL Lymphocytes # (Auto) 1.22 K/uL Monocytes # (Auto) 0.61 K/uL Eosinophils # (Auto) 0.13 K/uL Basophils # (Auto) 0.03 K/uL RDW Standard Deviation 45.7 fL RDW Coefficient of Variation 13.5 % Immature Granulocyte % (Auto) 0.3 % Immature Granulocyte # (Auto) 0.02 K/uL Procalcitonin < 0.05 ng/ml Assessment & Plan Syncope Possible vasovagal CT head on admission showed no acute intracranial abnormality schedule for outpatient stress test on 07/10 No arrhythmia on tele monitor Clinically stable ECHO showed * Normal LV chamber size with mild concentric LVH. * Normal LV systolic function, EF 60-65%. * No segmental left ventricular wall motion abnormalities are noted. * Grade I diastolic dysfunction. * Aortic valve sclerosis moderate, without significant aortic valvular stenosis. Abdominal discomfort GERD Tolerated clear liquid diet Diet advanced as tolerated Continue pantoprazole CT Abd/Pelvis showed: Left lateral 4.5 cm exophytic uterine fibroid. 1.5 cm right ovarian cyst. Smaller 1.7 cm posterior lower uterine segment uterine fibroid. Pelvic U/S showed 6.1 cm hypoechoic abnormality along the left aspect of the uterine fundus which corresponds to the finding shown on prior CT, favor fibroid Elevated WBC Possible reactive Afebrile WBC trending back to normal procalcitonin normal UA showed moderate leukocytes and 3+ bacteria Ucx grew more than 3 types of organisms Will d/c IV Rocephin Blood cx no growth Left uterine fibroid CT abd/pelvis showed left lateral 4.5 cm exophytic uterine fibroid. Will get pelvis u/s Consider outpatient [employer] consult Pulmonary nodules CT chest showed Several solid noncalcified pulmonary nodules are present bilaterally, largest of which is within the lingula measuring 6 mm. No history of smoking Follow up as per guideline Hypertension BP stable Continue lisinopril and metoprolol Peripheral vascular disease status post surgery Stable DVT px on lovenox subq Code Status FULL CODE Disposition Will discharge home today Current Inpatient Medications: Current Inpatient Medications Medications (Trade) Dose Ordered Sig/Ellie Route Start Time Stop Time Status Last Admin Dose Admin Ioversol (Optiray 320) 100 ml UD PRN IV 07/06/17 00:15 07/10/17 00:14 Enoxaparin Sodium (Lovenox Inj) 40 mg Q24H SC 07/06/17 09:00 08/05/17 08:59 07/07/17 07:39 40 MG Acetaminophen (Tylenol Tab) 650 mg Q4H PRN PO 07/06/17 01:15 08/05/17 01:14 Nitroglycerin (Nitrostat Tab) 0.4 mg UD PRN SL 07/06/17 01:15 08/05/17 01:14 Ondansetron HCl (Zofran Inj) 4 mg Q6H PRN IV 07/06/17 01:15 08/05/17 01:14 Tramadol HCl (Ultram Tab) 25 mg Q6H PRN PO 07/06/17 01:15 08/05/17 01:14 Pantoprazole Sodium (Protonix Tab) 40 mg QAM PO 07/07/17 09:00 08/06/17 08:59 07/07/17 07:39 40 MG Ceftriaxone Sodium 1 gm/ Dextrose 50 ml @ 100 mls/hr Q24H IV 07/06/17 23:00 07/09/17 23:29 07/06/17 22:35 100 MLS/HR Aspirin (Ecotrin Tab) 81 mg QPM PO 07/06/17 21:00 08/05/17 20:59 07/06/17 20:42 81 MG Atorvastatin Calcium (Lipitor Tab) 40 mg QPM PO 07/06/17 21:00 08/05/17 20:59 07/06/17 20:42 40 MG Lisinopril (Zestril Tab) 5 mg QPM PO 07/06/17 21:00 08/05/17 20:59 07/06/17 20:42 5 MG Metoprolol Succinate (Toprol Xl Tab) 12.5 mg QPM PO 07/06/17 21:00 08/05/17 20:59 07/06/17 20:42 12.5 MG Multivitamins (Multivitamin Tab) 1 tab QAM PO 07/06/17 09:00 08/05/17 08:59 07/07/17 07:39 1 TAB
--- NOTE | 2017-07-07 13:40 | Discharge Instructions ---
Discharge Instructions Date of Service Jul 07, 2017. Admission Reason for Admission: Sepsis Discharge Discharge Diagnosis / Problem: Syncope, Elevated WBC, Left uterine fibroid, Pulmonary nodules,Hypertension Discharge Goals Goal(s): Decrease discomfort, Improve function, Improve disease control Activity Recommendations Activity Limitations: resume your previous activity (as tolerated) . Instructions / Follow-Up Instructions / Follow-Up Follow up with your primary care provider Dr. Hernández on 07/09 @ 1:45 pm Monitor Blood pressure Hold Hydrochlorothiazide for now ( Resume only as per Dr. Hernández) You can try omeprazole OTC for the acid reflux Continue to use reflux precautions - do not eat less than 2 hours prior going to bed. Seek medical attention if you develop any fever Current Hospital Diet Patient's current hospital diet: AHA Diet (Heart Healthy) Discharge Diet Recommended Diet: AHA Diet (Heart Healthy) Pending Studies Studies pending at discharge: no Medical Emergencies . Who to Call and When: Medical Emergencies: If at any time you feel your situation is an emergency, please call 911 immediately. . Non-Emergent Contact Non-Emergency issues call your: Primary Care Provider Call Non-Emergent contact if: you have a fever, you have any medication questions . . "Provider Documentation" section prepared by Josemanuel Zacarias. . VTE Core Measure Inpt VTE Proph given/why not?: Enoxaparin (Lovenox)SQ
--- NOTE | 2017-07-07 18:35 | Discharge Summary ---
Discharge Summary Date of Service Jul 07, 2017. Discharge Summary Admission Date: Jul 06, 2017 at 00:56 Discharge Date: Jul 07, 2017 Discharge Disposition: Home Principal Diagnosis: Syncope Secondary Diagnoses/Problems: Elevated WBC Left uterine fibroid Pulmonary nodules Hypertension Peripheral vascular disease status post surgery Procedures: PELVIC ULTRASOUND CLINICAL HISTORY: Left lateral exophytic fibroid. COMPARISON STUDY: CT of the abdomen and pelvis July 06, 2017. TECHNIQUE: Transabdominal sonography of the pelvis was performed. FINDINGS: This exam is compromised given the lack of transvaginal imaging. The uterus measures 9.5 x 3.8 x 3.9 cm. Note is made of a 6.1 x 5.9 x 5.8 cm hypoechoic of the mildly along the left aspect of the uterine fundus which corresponds the abnormality shown on prior CT. Evaluation on this exam is significantly compromised given suboptimal penetration however this lesion is hypoechoic and favors a fibroid. The additional suspected uterine fibroid shown on prior CT is not visualized on this exam. Neither ovary was visualized on this transabdominal study. There was no free fluid. IMPRESSION: 1. Exam significantly compromised given lack of transvaginal imaging with suboptimal penetration. 6.1 cm hypoechoic abnormality along the left aspect of the uterine fundus which corresponds to the finding shown on prior CT. Although suboptimally assessed on this exam, this favors a fibroid. 2. Nonvisualization of the ovaries. Electronically signed by: Caleb Orozco M.D. 07/06/2017 9:24 PM Dictated Date/Time: 07/06/2017 9:19 PM [~ rep ct add3]] ABD/PELVIS IV CONTRAST ONLY CT DOSE: HISTORY: Pain abd pain TECHNIQUE: Multiaxial CT images of the abdomen and pelvis were performed following the use of intravenous contrast. A dose lowering technique was utilized adhering to the principles of ALARA. COMPARISON STUDY: None. FINDINGS: Minimal dependent basilar atelectasis. Liver is uniform. Spleen is unremarkable. Dependent sludge within the gallbladder lumen with potential polypoid change of the gallbladder fundus. Nonobstructive bowel pattern. Normal appendix. 1.5 cm right ovarian cyst. 4.5 cm left lateral exophytic uterine fibroid. No evidence for left ovarian enlargement. No free fluid in the pelvic cul-de-sac. Bladder is midline. IMPRESSION: 1. Left lateral 4.5 cm exophytic uterine fibroid. 2. Smaller 1.7 cm posterior lower uterine segment uterine fibroid. 3. 1.5 cm right ovarian cyst. 4. Sludge and/or debris within the dependent aspect of the gallbladder. Several small gallbladder fundal polyps. The above report was generated using voice recognition software. It may contain grammatical, syntax or spelling errors. Electronically signed by: Froylan Alcantara M.D. 07/06/2017 7:09 AM Dictated Date/Time: 07/06/2017 7:05 AM [~ rep ct add3]] (CHEST FOR PE) ANGIO WITH CT DOSE: 1174.01 mGy.cm HISTORY: 71 years-old Female presents with acute atypical chest pain and shortness of breath TECHNIQUE: Multiple CTA images of the chest were obtained after the intravenous administration of 93 ml Optiray 320. Coronal and sagittal MIPS were obtained from the axial data set and were submitted for review. A dose lowering technique was utilized adhering to the principles of ALARA. COMPARISON: Chest radiograph 07/05/2017. FINDINGS: CTA: Heart is mildly enlarged. No pericardial effusion. Coronary arterial calcifications are noted. The thoracic aorta is normal in course and caliber with moderate mixed plaquing. Aberrant right subclavian artery within a retroesophageal location is noted causing mild mass effect and compression of the adjacent esophagus. No aortic dissection or aneurysm. The pulmonary arterial tree is opacified to level of the distal segmental branches. The subsegmental branches are not well-seen secondary to respiratory motion. No focal filling defects identified to suggest pulmonary thromboembolic disease. CT CHEST: No dominant thyroid nodule identified. No pathologic adenopathy about the chest. There is no pneumothorax, pleural effusion, focal airspace consolidation or overt pulmonary edema. Mild dependent bibasilar atelectasis. There are a few scattered solid noncalcified nodules throughout the lungs bilaterally (please see bookmarks), the largest of which is within the lingula measuring 6 mm as seen on image 176 series 4. The remaining nodules measure 2-4 mm. Central airways are patent. Upper abdominal structures demonstrate no acute abnormality. Cholelithiasis without CT evidence of acute cholecystitis. Soft tissues are unremarkable. Bones appear intact. Multilevel endplate spurring of the spine. IMPRESSION: 1. No acute intrathoracic abnormality identified. No acute aortic pathology or evidence of pulmonary thromboembolic disease. 2. Several solid noncalcified pulmonary nodules are present bilaterally, largest of which is within the lingula measuring 6 mm. Follow-up guidelines provided below. 3. Aberrant right subclavian artery. 4. Mild cardiomegaly. Please refer to below summary of Fleischner criteria recommendations for follow-up of incidental CT nodules (Jammie Parekh, Guidelines for management of small pulmonary nodules detected on CT scans: A statement from the Fleischner Society, Radiology 237: [phone].) SOLID NODULES Multiple nodules size: <6 mm * Low risk patients: no routine follow-up * high risk patients: optional CT at 12 months Multiple nodules size: 6-8 mm * Low risk patients: follow-up at 3-6 months, then consider further follow-up at 18-24 months * high risk patients: follow-up at 3-6 months, then at 18-24 months if no change Note: newly detected indeterminate nodule in persons 35 years of age or older. * Low risk patients: minimal or absent history of smoking and/or other known risk factors * high risk patients: history of smoking or of other known risk factors (e.g. first degree relative with lung cancer, or exposure to asbestos, radon, uranium) * if a nodule up to 8 mm is partly solid or is ground glass further follow-up is required after 24 months to exclude possible slow growing adenocarcinoma (CRISTELA) The above report was generated using voice recognition software. It may contain grammatical, syntax or spelling errors. Electronically signed by: William Llanos M.D. 07/06/2017 7:10 AM Dictated Date/Time: 07/06/2017 7:02 AM HEAD WITHOUT CONTRAST (CT) CLINICAL HISTORY: 71 years-old Female presenting with left-sided headache, syncope. TECHNIQUE: Multidetector CT imaging of the head was performed without the use of intravenous contrast. IV contrast: None. A dose lowering technique was used consistent with the principles of ALARA (as low as reasonably achievable). COMPARISON: CT head from 10/25/2013. CT DOSE (mGy.cm): The estimated cumulative dose is 614.27 mGy.cm. 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 Ventricles and sulci normal in size. Periventricular and subcortical white matter hypoattenuation, nonspecific but likely indicative of chronic small vessel ischemic change. No mass effect or midline shift. No hemorrhage or acute territorial infarct. No extra-axial fluid collection. Paranasal sinuses and mastoid air cells clear. Calvarium intact. IMPRESSION: 1. No acute intracranial abnormality. Electronically signed by: Michael Zepeda M.D. 07/06/2017 7:24 AM Dictated Date/Time: 07/06/2017 7:08 AM [~ rep ct add3]] CHEST ONE VIEW PORTABLE HISTORY: Pt c/o syncope COMPARISON: None. FINDINGS: The lungs are clear. Cardiac silhouette is normal in size. No pleural effusions. No pneumothorax. IMPRESSION: No acute process. Electronically signed by: Papito Mann M.D. 07/05/2017 9:15 PM Dictated Date/Time: 07/05/2017 9:14 PM ECHO Interpretation Summary * Name: KENRICK PAIZ Study Date: 07/06/2017 07:12 AM BP: 117/ 70 mmHg * Patient Location: [facility] HR: 104 * : 1945 (M/d/yyyy) Gender: Female Height: 69 in * Age: 71 yrs Ethnicity: AL Weight: 196 lb * Ordering Physician: Pako Hunter * Referring Physician: Self, Referred * Performed By: Liz Rivera [facility] * * Reason For Study: SYNCOPE * BSA: 2.0 m2 * -- Conclusions -- * Normal LV chamber size with mild concentric LVH. * Normal LV systolic function, EF 60-65%. * No segmental left ventricular wall motion abnormalities are noted. * Grade I diastolic dysfunction. * Aortic valve sclerosis moderate, without significant aortic valvular stenosis. Procedure Details * A complete two-dimensional transthoracic echocardiogram was performed (2D, M-mode, Doppler and color flow Doppler). Left Ventricle * The left ventricle is normal in size. * There is mild concentric left ventricular hypertrophy. * Left ventricular systolic function is normal. * No segmental left ventricular wall motion abnormalities are noted. * Ejection Fraction = 60-65%. * The left ventricular wall motion is normal. Right Ventricle * The right ventricular cavity size is normal (basal dimension <4.2 cm in right ventricular apical 4-chamber view). * The right ventricular systolic function is normal as assessed by tricuspid annular plane systolic excursion (TAPSE) (normal >1.5 cm). Atria * The left atrial size is normal. * Right atrial size is normal. * No ASD detected; PFO is not assessed. Mitral Valve * The mitral valve is normal in structure and function. Tricuspid Valve * The tricuspid valve is normal in structure and function. Aortic Valve * The aortic valve is trileaflet. * Aortic valve sclerosis moderate, without significant aortic valvular stenosis. * There is no significant aortic regurgitation. Pulmonic Valve * The pulmonary valve is not well seen, but the Doppler examination is normal without significant regurgitation or stenosis. Great Vessels * The aortic root is normal size. Pericardium/Pleural * There is no pericardial effusion. Left Ventricular Diastolic Function * Grade I diastolic dysfunction, (abnormal relaxation pattern). MMode 2D Measurements and Calculations Medication Reconciliation Continued Medications: Aspirin (Aspirin Ec) 81 Mg Tab 81 MG PO QPM Atorvastatin (Lipitor) 40 Mg Tab 40 MG PO QPM, TAB Bioflavonoid Products (Christy-C) 1 Tab Tab 500-550 MG PO QAM Coenzyme Q10 (Ubidecarenone) (Co Q10) 100 Mg Cap 100 MG PO QAM Garlic (Garlique) 400 Mg Tab 400 MG PO QAM Swsdocchvtt-Sqaugjuapta-Kpq C- (Glucosamine Chondroitin) 1 Cap Cap 1 CAP PO QAM Lisinopril (Prinivil) 5 Mg Tab 5 MG PO QPM, TAB Metoprolol Succ (Toprol Xl) (Toprol-Xl) 25 Mg Tabcr 12.5 MG PO QPM, TAB Multivitamin (Multivitamin) Tab 1 TAB PO QAM, TAB Ocuvite Preservision (Ocuvite Preservision) 1 Tab Tab 1 TAB PO QAM, TAB [place]-3 Fatty Acids ([place] 3) 1 Cap Cap 1 CAP PO QAM Discontinued Medications: Hydrochlorothiazide (Hctz) 50 Mg Tab 50 MG PO QPM, TAB Admission Information HPI (per Admitting provider): CHIEF COMPLAINT: Syncope. HISTORY OF PRESENT ILLNESS: History obtained from the patient, family, and records. Medical history is significant for hypertension, PVD status post surgery, hyperlipidemia. Recent confinement was in October 2013 for complicated migraine with transient global amnesia. Patient was seen at the PCP's office about 3 weeks ago. Patient complained to the PCP of occasional chest pain with exertion, tightness and squeezing. No other symptoms. Outpatient stress test was recommended. Yesterday morning, she was not feeling very well, had reflux symptoms going to her throat, achy epigastric discomfort with some nausea. Denies bladder symptoms. Bowel movement. She was at [employer] with her son when patient was noted to look uncomfortable.. She told her son that she needed to go to a hospital. Patient passed out for a few seconds. Patient also complaining of some left-sided headache symptoms, achy, similar to migraine attack. No incontinence, no tongue biting, no witnessed seizure activity. Patient was brought to the Emergency Room. She had an episode of emesis. Given ceftriaxone for possible UTI. Physical Exam (per Admitting): PHYSICAL EXAMINATION: VITAL SIGNS: Blood pressure was noted to be 151/85, pulse rate 102, RR 25, temperature 37.8 and sats 91 on room air. GENERAL: Noted to be slightly uncomfortable in no respiratory distress. Orthostatic vitals were negative. SKIN: Normal color. Warm. HEENT: [place] palpebral conjuctivae. No ptosis. Dry buccal mucosa. NECK: No JVD. Supple. No tenderness. CHEST: Clear to auscultation. No tenderness. HEART: Regular rate and rhythm. No murmur. ABDOMEN: Some distension, nontender. EXTREMITIES: Minimal LE edema, no tenderness. No gross deformities noted on exam Neuro: coherent, no gross focality. Hospital Course Syncope Possible vasovagal CT head on admission showed no acute intracranial abnormality schedule for outpatient stress test on 07/10 No arrhythmia on tele monitor Clinically stable ECHO showed * Normal LV chamber size with mild concentric LVH. * Normal LV systolic function, EF 60-65%. * No segmental left ventricular wall motion abnormalities are noted. * Grade I diastolic dysfunction. * Aortic valve sclerosis moderate, without significant aortic valvular stenosis. Abdominal discomfort GERD Tolerated clear liquid diet Diet advanced as tolerated Continue pantoprazole CT Abd/Pelvis showed: Left lateral 4.5 cm exophytic uterine fibroid. 1.5 cm right ovarian cyst. Smaller 1.7 cm posterior lower uterine segment uterine fibroid. Pelvic U/S showed 6.1 cm hypoechoic abnormality along the left aspect of the uterine fundus which corresponds to the finding shown on prior CT, favor fibroid Elevated WBC Possible reactive Afebrile WBC trending back to normal procalcitonin normal UA showed moderate leukocytes and 3+ bacteria Ucx grew more than 3 types of organisms Will d/c IV Rocephin Blood cx no growth Left uterine fibroid CT abd/pelvis showed left lateral 4.5 cm exophytic uterine fibroid. Will get pelvis u/s Consider outpatient OPAL MINER consult Pulmonary nodules CT chest showed Several solid noncalcified pulmonary nodules are present bilaterally, largest of which is within the lingula measuring 6 mm. No history of smoking Follow up as per guideline Hypertension BP stable Continue lisinopril and metoprolol Peripheral vascular disease status post surgery Stable DVT px on lovenox subq Code Status FULL CODE Disposition Will discharge home today Total time spent on discharge = 35 minutes This includes examination of the patient, discharge planning, medication reconciliation, and communication with other providers. Discharge Instructions Discharge Instructions Date of Service Jul 07, 2017. Admission Reason for Admission: Sepsis Discharge Discharge Diagnosis / Problem: Syncope, Elevated WBC, Left uterine fibroid, Pulmonary nodules,Hypertension Discharge Goals Goal(s): Decrease discomfort, Improve function, Improve disease control Activity Recommendations Activity Limitations: resume your previous activity (as tolerated) . Instructions / Follow-Up Instructions / Follow-Up Follow up with your primary care provider Dr. Hernández on 07/09 @ 1:45 pm Monitor Blood pressure Hold Hydrochlorothiazide for now ( Resume only as per Dr. Hernández) You can try omeprazole OTC for the acid reflux Continue to use reflux precautions - do not eat less than 2 hours prior going to bed. Seek medical attention if you develop any fever Current Hospital Diet Patient's current hospital diet: AHA Diet (Heart Healthy) Discharge Diet Recommended Diet: AHA Diet (Heart Healthy) Pending Studies Studies pending at discharge: no Medical Emergencies . Who to Call and When: Medical Emergencies: If at any time you feel your situation is an emergency, please call 911 immediately. . Non-Emergent Contact Non-Emergency issues call your: Primary Care Provider Call Non-Emergent contact if: you have a fever, you have any medication questions . . "Provider Documentation" section prepared by Josemanuel Zacarias. . VTE Core Measure Inpt VTE Proph given/why not?: Enoxaparin (Lovenox)SQ Additional Copies To Kiesha Hernández D.O.
== END 2017-07-07 14:23 | disposition home or self-care (01) | DRG 312 ==
LOC: EDBD 19:53 → C.EDB 19:54 → C.MED 07-06 00:56 → ENRESERV 07-06 01:15
PROVIDERS: ADMIT Internal Medicine; ATTEND Internal Medicine
DX: R55 Syncope and collapse (principal); I73.9 Peripheral vascular disease, unspecified; I10 Essential (primary) hypertension; E78.5 Hyperlipidemia, unspecified; R91.8 Other nonspecific abnormal finding of lung field; K21.9 Gastro-esophageal reflux disease without esophagitis; D25.9 Leiomyoma of uterus, unspecified; Z79.82 Long term (current) use of aspirin; Z79.899 Other long term (current) drug therapy

== ENCOUNTER → 2017-07-18 | Day surgery (SDC) | payer OTHER ==
[2017-06-26 15:40] VITALS: Ht 175.3 cm; Wt 88.2 kg
[~2017-07-18] VITALS: Ht 175.3 cm; Wt 88.2 kg
[~2017-07-18] MED LIST changes: -CALC500C3 PO; +DICL-201 PO; +UBIQ1CAP PO
== END | disposition home or self-care (01) ==
LOC: EDSTATUS 07:00 → C.PAT 12:15
PROVIDERS: ATTEND Specialist
DX: H26.9 Unspecified cataract (principal)

== ENCOUNTER → 2017-08-29 | Day surgery (SDC) | payer OTHER ==
[2017-08-23 08:29] VITALS: Ht 175.3 cm; Wt 87.7 kg
[~2017-08-29] VITALS: Ht 175.3 cm; Wt 87.7 kg
[~2017-08-29] MED LIST changes: +500ML BSS 0.3ML EPI 1:1000PF IRRIG ONE; +ACETAMINOPHEN 325 MG TAB PO PRN; +AMVISC PLUS 0.8ML SYRINGE INT OCU ONE; -ATOR-24 PO; +ATROPINE SULFATE 0.1 MG/ML 5ML SYR IV PRN; +AcetaZOLAMIDE 250 MG TAB PO SCH; +BETAXOLOL HCL 0.25% OP SUSP PER DROP CHARGE OPL SCH; +BRIMONIDINE TART 0.2% OP SOLN PER DROP CHARGE ONE; +BSS FLUSH ONE; -COEN100C28 PO; +ENDOCOAT 0.85ML SYRINGE INT OCU ONE; +EpHEDrine SULFATE INJ 50 MG/ML AMP IV PRN; +EpINEphrine INJ 1MG/ML AMP 1 MG/ML AMP ONE; +FLUT0.15; +LACTATED RINGER'S 1000ML 500 ML IV SCH; +LIDOCAINE 4% OP SOLN DROP CHARGE ONE; +LIDOCAINE 4% OP SOLN DROP CHARGE OPL SCH; +LIDOCAINE HCL 1% MPF 2 ML VIAL ONE; +MIDAZOLAM HCL 1 MG/ML 2ML VIAL ONE; +MIX: 4ML BSS 1ML EPI 1:1000 PF INSTIL ONE; +MOXIFLOXACIN OPH SOLN PER DROP CHARGE ONE; +OCUCOAT 1 ML SOLN IO ONE; -OMEG12006 PO; +POVIDONE-IODINE OP SOLN 30 ML BTL ONE; +PROPARACAINE 0.5% OP SOLN PER DROP CHARGE OPL SCH; +TOBRAMYCIN/DEXAMETHASONE OPH OINT PER APPLN CHARGE ONE
--- NOTE | 2017-08-29 06:58 | History & Physical Bridge - SC ---
H&P Re-Evaluation Bridge Note: I have examined the patient, reviewed the History & Physical and in the interval since the performance of the History & Physical I have noted the following changes of clinical significance: No changes noted
[2017-08-29] MEDS: PHENYLEPHRINE HCL 2.5% OP SOLN PER DROP CHARGE OPL SCH ×2 (07:20→07:25)
[2017-08-29] MEDS: TROPICAMIDE 1% OP SOLN PER DROP CHARGE OPL SCH ×2 (07:21→07:26)
[2017-08-29] MEDS: CYCLOPENTOLATE HCL 1% OP SOLN PER DROP CHARGE OPL SCH ×2 (07:22→07:27)
[2017-08-29] MEDS: MOXIFLOXACIN OPH SOLN PER DROP CHARGE OPL SCH ×2 (07:23→07:33)
--- NOTE | 2017-08-29 07:54 | [facility] Operative Report ---
Operative Report Date of Service Aug 29, 2017. Operative Report 1. PREOPERATIVE DIAGNOSIS: Senile nuclear cataract, left eye. 2. POSTOPERATIVE DIAGNOSIS: Senile nuclear cataract, left eye. 3. PROCEDURE: Phacoemulsification of left cataract with posterior chamber lens implant, type Bausch [employer] Lomb, model MI60L, power +16.5 diopters. ANESTHESIA: Local standby. SURGEON: Dr. Galarza. COMPLICATIONS: None. OPERATING TIME: 10 minutes. 4. OPERATION AND FINDINGS: DESCRIPTION OF PROCEDURE: The left pupil was dilated. The anesthetic was administered using a topical technique. The left eye was prepped and draped. A speculum was placed. A clear corneal incision was formed. The chamber was filled with Amvisc Plus and Endocoat. Epinephrine solution was used. A paracentesis was placed. A capsulorrhexis was performed. The nucleus was hydrodissected. The lens was removed with phacoemulsification. Time was 3.22 seconds. The aspiration unit was used to remove the cortex. The capsule was filled with Amvisc Plus. The lens implant was folded and placed into the capsule. The incision was hydrated. The Amvisc was aspirated. The wound was secure. The chamber was deep. The pupil was round. Brimonidine, TobraDex ointment and Vigamox solution were placed. The speculum was removed. The patient was returned to the Recovery Room in stable condition. I attest to the content of the Intraoperative Record and any orders documented therein. Any exceptions are noted below. The scribe's documentation has been prepared in my presence, under my direction and personally reviewed by me in its entirety. I confirm that the note above accurately reflects all work, treatment, procedures, and medical decision making performed by me. I personally scribed for Shukri Galarza M.D. (DANYEL) on 08/29/17 at 07:54. Electronically submitted by Marissa Olivas (DAO).
--- NOTE | 2017-08-29 07:57 | Discharge Instructions-SurgCtr ---
Discharge Instructions Date of Service Aug 29, 2017. Visit Reason for Visit: Left Cataract Discharge Discharge Diagnosis / Problem: lens implant left eye Discharge Goals Goal(s): Improve function Activity Recommendations Activity Limitations: resume your previous activity Lifting Limitations: no more than 10 pounds Exercise/Sports Limitations: gradually increase as tolerated May Resume Sexual Activity: when tolerated Shower/Bathe: tomorrow Driving or Machine Use: resume 1 day after discharge Anesthesia . Post Anesthesia Instructions: If you have had General Anesthesia or IV Sedation: * Do not drive today. * Resume driving when surgeon permits. * Do not make important decisions or sign legal documents today. * Call surgeon for: 1. Temperature elevations greater than 101 degrees F. 2. Uncontrollable pain. 3. Excessive bleeding. 4. Persistent nausea and vomiting. 5. Medication intolerance (nausea, vomiting or rash). * For nausea and vomiting use only clear liquids such as: tea, soda, bouillon until nausea subsides, then gradually increase diet as tolerated. * If you have any concerns or questions, call your surgeon's office. If physician is unavailable and it is an emergency, call 911 or go to the nearest emergency room. . Instructions / Follow-Up Instructions / Follow-Up ACTIVITY RECOMMENDATIONS: * Light activities. * Mild irritation and blurred vision are common for the first few days. * You may walk outside, read, watch television. * Redness around the white part of the eye is common. MEDICATIONS: Resume previous medications unless instructed otherwise by your surgeon. * Take white Diamox (Acetazolamide) tablet at 1 pm today. Start all eye drops at 1 pm today: * Eye drops (today and tomorrow): Prednisone - one drop in operative eye every 3 hours while awake Ofloxacin - one drop in operative eye every 3 hours while awake SPECIAL CARE INSTRUCTIONS: * Tape plastic shield over eye to sleep at night. Call your doctor at with any concerns or problems. FOLLOW UP VISIT: Follow-up with Dr Galarza at [place] office as scheduled. Diet Recommendations Home Diet: no limitations Procedures Procedures Performed: Left Cataract Phacoemulsification With Intraocular Lens Implant Pending Studies Studies pending at discharge: no Medical Emergencies . Who to Call and When: Medical Emergencies: If at any time you feel your situation is an emergency, please call 911 immediately. . Non-Emergent Contact Non-Emergency issues call your: [employer] Call Non-Emergent contact if: your pain is not controlled [phone] . . "Provider Documentation" section prepared by Shukri Galarza. .
--- NOTE | 2017-08-29 08:12 | Anesthesia Progress Nt - [facility] ---
Anesthesia Post Op Note Date & Time Aug 29, 2017 at 08:12 Vital Signs Pain Intensity: 0 Vital Signs Past 12 Hours Date Time Temp Pulse Resp B/P (MAP) Pulse Ox O2 Delivery O2 Flow Rate FiO2 08/29/17 07:56 36.1 72 12 111/71 (84) 96 Room Air 08/29/17 07:13 36.9 73 16 148/75 (99) 97 Room Air Notes Mental Status: alert / awake / arousable, participated in evaluation Pt Amnestic to Procedure: Yes Nausea / Vomiting: adequately controlled Pain: adequately controlled Airway Patency, RR, SpO2: stable & adequate BP & HR: stable & adequate Hydration State: stable & adequate Anesthetic Complications: no major complications apparent
[2017-08-29 08:25] VITALS: BP 113/67; PULSE 68; O2SAT 97
== END | disposition home or self-care (01) ==
LOC: X.SURG 06:55
PROVIDERS: ATTEND Specialist
DX: H25.12 Age-related nuclear cataract, left eye (principal); I10 Essential (primary) hypertension; Z79.82 Long term (current) use of aspirin; Z79.899 Other long term (current) drug therapy; E78.5 Hyperlipidemia, unspecified; I65.29 Occlusion and stenosis of unspecified carotid artery

== ENCOUNTER → 2017-09-19 | Day surgery (SDC) | payer OTHER ==
[2017-09-18 11:53] VITALS: Ht 175.3 cm; Wt 87.7 kg
[~2017-09-19] VITALS: Ht 175.3 cm; Wt 87.7 kg
[~2017-09-19] MED LIST changes: +AcetaZOLAMIDE 250 MG TAB ONE; -BETAXOLOL HCL 0.25% OP SUSP PER DROP CHARGE OPL SCH; +BETAXOLOL HCL 0.25% OP SUSP PER DROP CHARGE OPR SCH; -LIDOCAINE 4% OP SOLN DROP CHARGE OPL SCH; +LIDOCAINE 4% OP SOLN DROP CHARGE OPR SCH; -PROPARACAINE 0.5% OP SOLN PER DROP CHARGE OPL SCH; +PROPARACAINE 0.5% OP SOLN PER DROP CHARGE OPR SCH
[2017-09-19] MEDS: PHENYLEPHRINE HCL 2.5% OP SOLN PER DROP CHARGE OPR SCH ×2 (08:42→08:47)
[2017-09-19] MEDS: TROPICAMIDE 1% OP SOLN PER DROP CHARGE OPR SCH ×2 (08:43→08:48)
[2017-09-19] MEDS: CYCLOPENTOLATE HCL 1% OP SOLN PER DROP CHARGE OPR SCH ×2 (08:44→08:49)
[2017-09-19] MEDS: MOXIFLOXACIN OPH SOLN PER DROP CHARGE OPR SCH ×2 (08:45→08:55)
--- NOTE | 2017-09-19 09:42 | [facility] Operative Report ---
Operative Report Date of Service Sep 19, 2017. Operative Report 1. PREOPERATIVE DIAGNOSIS: Senile nuclear cataract, right eye. 2. POSTOPERATIVE DIAGNOSIS: Senile nuclear cataract, right eye. 3. PROCEDURE: Phacoemulsification of right cataract with posterior chamber lens implant, type Bausch [employer] Lomb, model MI60L, power +17.0 diopters. ANESTHESIA: Local standby. SURGEON: Dr. Galarza. COMPLICATIONS: None. OPERATING TIME: 10 minutes. 4. OPERATION AND FINDINGS: DESCRIPTION OF PROCEDURE: The right pupil was dilated. The anesthetic was administered using a topical technique. The right eye was prepped and draped. A speculum was placed. A clear corneal incision was formed. The chamber was filled with Amvisc Plus and Endocoat. Epinephrine solution was used. A paracentesis was placed. A capsulorrhexis was performed. The nucleus was hydrodissected. The lens was removed with phacoemulsification. Time was 2.18 seconds. The aspiration unit was used to remove the cortex. The capsule was filled with Amvisc Plus. The lens implant was folded and placed into the capsule. The incision was hydrated. The Amvisc was aspirated. The wound was secure. The chamber was deep. The pupil was round. Brimonidine, TobraDex ointment and Vigamox solution were placed. The speculum was removed. The patient was returned to the Recovery Room in stable condition. I attest to the content of the Intraoperative Record and any orders documented therein. Any exceptions are noted below. The scribe's documentation has been prepared in my presence, under my direction and personally reviewed by me in its entirety. I confirm that the note above accurately reflects all work, treatment, procedures, and medical decision making performed by me. I personally scribed for Shukri Galarza M.D. (DANYEL) on 09/19/17 at 09:42. Electronically submitted by Marissa Olivas (DAO).
--- NOTE | 2017-09-19 09:45 | Discharge Instructions-SurgCtr ---
Discharge Instructions Date of Service Sep 19, 2017. Visit Reason for Visit: Cataract Right Eye Discharge Discharge Diagnosis / Problem: lens implant right eye Discharge Goals Goal(s): Improve function Activity Recommendations Activity Limitations: resume your previous activity Lifting Limitations: no more than 10 pounds Exercise/Sports Limitations: gradually increase as tolerated May Resume Sexual Activity: when tolerated Shower/Bathe: tomorrow Driving or Machine Use: resume 1 day after discharge Anesthesia . Post Anesthesia Instructions: If you have had General Anesthesia or IV Sedation: * Do not drive today. * Resume driving when surgeon permits. * Do not make important decisions or sign legal documents today. * Call surgeon for: 1. Temperature elevations greater than 101 degrees F. 2. Uncontrollable pain. 3. Excessive bleeding. 4. Persistent nausea and vomiting. 5. Medication intolerance (nausea, vomiting or rash). * For nausea and vomiting use only clear liquids such as: tea, soda, bouillon until nausea subsides, then gradually increase diet as tolerated. * If you have any concerns or questions, call your surgeon's office. If physician is unavailable and it is an emergency, call 911 or go to the nearest emergency room. . Instructions / Follow-Up Instructions / Follow-Up ACTIVITY RECOMMENDATIONS: * Light activities. * Mild irritation and blurred vision are common for the first few days. * You may walk outside, read, watch television. * Redness around the white part of the eye is common. MEDICATIONS: Resume previous medications unless instructed otherwise by your surgeon. * Take white Diamox (Acetazolamide) tablet at 1 pm today. Start all eye drops at 1 pm today: * Eye drops (today and tomorrow): Prednisone - one drop in operative eye every 3 hours while awake Ofloxacin - one drop in operative eye every 3 hours while awake SPECIAL CARE INSTRUCTIONS: * Tape plastic shield over eye to sleep at night. Call your doctor at with any concerns or problems. FOLLOW UP VISIT: Follow-up with Dr Galarza at [facility] as scheduled. Diet Recommendations Home Diet: no limitations Procedures Procedures Performed: Right Cataract Phacoemulsification With Intraocular Lens Implant Pending Studies Studies pending at discharge: no Medical Emergencies . Who to Call and When: Medical Emergencies: If at any time you feel your situation is an emergency, please call 911 immediately. . Non-Emergent Contact Non-Emergency issues call your: Corrosion Control Fitter Call Non-Emergent contact if: your pain is not controlled [phone] . . "Provider Documentation" section prepared by Shukri Galarza. .
[2017-09-19 09:48] VITALS: TEMP 36.6
--- NOTE | 2017-09-19 09:53 | Anesthesia Progress Nt - [facility] ---
Anesthesia Post Op Note Date & Time Sep 19, 2017 at 09:53 Vital Signs Pain Intensity: 0 Vital Signs Past 12 Hours Date Time Temp Pulse Resp B/P (MAP) Pulse Ox O2 Delivery O2 Flow Rate FiO2 09/19/17 09:48 36.6 75 12 136/77 (96) 98 Room Air 09/19/17 08:32 36.6 78 18 146/84 (104) 98 Room Air Notes Mental Status: alert / awake / arousable, participated in evaluation Pt Amnestic to Procedure: Yes Nausea / Vomiting: adequately controlled Pain: adequately controlled Airway Patency, RR, SpO2: stable & adequate BP & HR: stable & adequate Hydration State: stable & adequate Anesthetic Complications: no major complications apparent
[2017-09-19 10:16] VITALS: BP 139/74; PULSE 76; O2SAT 98
== END | disposition home or self-care (01) ==
LOC: X.SURG 07:49
PROVIDERS: ATTEND Specialist
DX: H25.11 Age-related nuclear cataract, right eye (principal); I10 Essential (primary) hypertension; Z79.899 Other long term (current) drug therapy

== ENCOUNTER 2019-03-25 00:23 | Observation (INO) ==
[2019-03-25] MEDS ORDERED: DEXAMETHASONE SOD PHOSPHATE 20 MG/5 ML ML IM STA (00:37)
[2019-03-25] MEDS ORDERED: FAMOTIDINE 20 MG TAB PO ONE (00:37)
[2019-03-25] MEDS ORDERED: DEXAMETHASONE **PF** INJ 10 MG/ML VIAL ONE (00:45)
[2019-03-25] MEDS ORDERED: SODIUM CHLORIDE 0.9% 1000ML 500 ML IV ONE (01:08)
[2019-03-25 01:30] LABS: Basophils # (auto) 0.02 K/uL (0-0.2); Basophils % (auto) 0.1 %; Eosinophils % (auto) 2.9 %; Hemoglobin 15.1 g/dL (12.0-16.0); Immature Granulocytes # (auto) 0.04 K/uL (0.00-0.02); Immature Granulocytes % (auto) 0.3 %; Lymphocytes # (auto) 3.06 K/uL (1.2-3.4); Lymphocytes % (auto) 21.8 %; Mean Corpuscular Hgb Conc 33.6 g/dL (32-36); Mean Corpuscular Volume 89.6 fL (80-100); Mean Platelet Volume 9.9 fL (7.4-10.4); Monocytes % (auto) 8.6 %; Neutrophils % (auto) 66.3 %; Platelet Count 274 K/uL (130-400); RDW Coefficient of Variation 13.3 % (11.5-14.5); RDW Standard Deviation 43.5 fL (36.4-46.3); Red Blood Count 5.02 M/uL (4.2-5.4); White Blood Count 14.02 K/uL (4.8-10.8)
[2019-03-25 01:48] LABS: INR 1.1 (0.9-1.1); Partial Thromboplastin Ratio 0.8; Partial Thromboplastin Time 22.4 Seconds (21.0-31.0)
[2019-03-25 01:49] LABS: Alanine Aminotransferase 154 U/L (12-78); Albumin Level 3.1 gm/dl (3.4-5.0); Aspartate Aminotransferase 43 U/L (15-37); BUN Creatinine Ratio 29.5 (10-20); Blood Urea Nitrogen 30 mg/dl (7-18); Calcium 8.9 mg/dl (8.5-10.1); Carbon Dioxide 31 mmol/L (21-32); Chloride 99 mmol/L (98-107); Creatinine Clr Calc Pharmacy 57.4 ml/min; Est GFR (African American) 63.2; Est GFR (Non-African American) 54.5; Glucose 147 mg/dl (70-99); Potassium 3.7 mmol/L (3.5-5.1); Sodium 137 mmol/L (136-145)
[2019-03-25 01:53] LABS: Albumin Globulin Ratio 0.9 (0.9-2); Alkaline Phosphatase 267 U/L (45-117); Bilirubin,Total 0.6 mg/dl (0.2-1); Globulin 3.4 gm/dl (2.5-4.0); Total Protein 6.5 gm/dl (6.4-8.2); Troponin I < 0.015 ng/ml (0-0.045)
[2019-03-25] MEDS ORDERED: LORATADINE 10 MG TAB PO ONE (02:28)
[2019-03-25 02:59] LABS: T4 Free Thyroxine 1.03 ng/dl (0.8-1.6)
--- NOTE | 2019-03-25 03:49 | Emergency Department Note ---
Entered by Shayna Woods acting as a scribe for History of Present Illness General Chief complaint: Allergic Reaction Stated complaint: COVERED IN HIVES,THROAT SWELLING Source: patient and family History of Present Illness Provider complaint: allergic reaction Onset (ago): hour(s) 4 Pain Consistency: + other (episode) Maximum Pain Intensity: 1 Quality: + other (allergic reaction) Associated symptoms: + denies other symptoms (trouble breathing) and + other (teeth feel like they are chattering, face feels hot, intermittent hives for a few months, elevated liver enzymes) Treatments prior to arrival: other (2 Benadryl, did not help) The patient is a 73 year old female who presents to the ED with complaints of an episode of an allergic reaction that started 4 hours ago. The patient states that she ate a cheeseburger and did not anything different. The patient states that she has had cheeseburgers before with no reaction. The patient states that she took 2 Benadryl, but it did not help. The patient states that she has gotten hives on and off for the past few months starting around the time she was diagnosed with highly elevated liver enzymes. Pre daughter, the patient does not respond to over the counter medications or topical medications. The patient states that her teeth feel like they are chattering and her face feels hot. The patient denies trouble breathing. Home Medications Home Medications Medication Instructions Recorded Confirmed Type ascorbate calcium-bioflavonoid 1 tab PO BID 01/21/19 03/25/19 History [Christy-C with Bioflavonoids] aspirin [Aspir-81] 81 mg PO QAM 01/21/19 03/25/19 History calcium carbonate [Tums] 200 mg PO TID PRN 01/21/19 03/25/19 History coenzyme Q10 [CoQ-10] 100 mg PO QAM 01/21/19 03/25/19 History diclofenac sodium 4 g TOPICAL QID PRN 01/21/19 03/25/19 History garlic 400 mg PO QPM 01/21/19 03/25/19 History hydrochlorothiazide 50 mg PO QPM 01/21/19 03/25/19 History lisinopril 5 mg PO QPM 01/21/19 03/25/19 History metoprolol succinate 12.5 mg PO QPM 01/21/19 03/25/19 History omega 7-fim-oje-fish oil [Fish Oil] 1 cap PO QAM 01/21/19 03/25/19 History pravastatin 10 mg PO QPM 03/25/19 03/25/19 History vit C-E-zinc lag-lmyexe-oykgnj 1 tab PO DAILY 03/25/19 03/25/19 History [[facility]] Allergies Allergy/AdvReac Type Severity Reaction Status Date / Time aspirin Allergy Mild HIVES Verified 03/25/19 01:28 Past Med/Surg History Medical History Confusion (Acute 10/25/13) Sepsis Family History Other Family history non-contributory Social History Feels Safe at Home: Yes Smoking Status: Never smoker Review of Systems See HPI for pertinent positives & negatives. and A total of 10 systems reviewed and were otherwise negative Physical Exam Vital Signs Vital Signs - 24 hr 03/25/19 00:25 03/25/19 01:00 03/25/19 01:03 Temperature 36.3 C L Temperature Source Oral Sepsis Recent Fever Within 48 Hours No Sepsis Action Taken by Nursing No Action Required Pulse Rate 102 H 63 65 Pulse Rate from SpO2 Sensor 60 65 Respiratory Rate 18 19 21 Respiratory Effort / Characteristics Non-Labored Respiratory Depth Normal Blood Pressure 115/75 63/36 L 96/53 L Blood Pressure Mean 88 45 67 Pulse Oximetry 99 99 97 Oxygen Delivery Method Room Air 03/25/19 01:13 03/25/19 01:26 03/25/19 01:29 Temperature Temperature Source Sepsis Recent Fever Within 48 Hours Sepsis Action Taken by Nursing Pulse Rate 73 72 Pulse Rate from SpO2 Sensor 73 73 Respiratory Rate 24 26 H Respiratory Effort / Characteristics Respiratory Depth Blood Pressure 88/55 L 91/55 L Blood Pressure Mean 66 67 Pulse Oximetry 95 97 96 Oxygen Delivery Method Room Air 03/25/19 01:30 03/25/19 01:32 03/25/19 01:45 Temperature Temperature Source Sepsis Recent Fever Within 48 Hours Sepsis Action Taken by Nursing Pulse Rate 74 74 80 Pulse Rate from SpO2 Sensor 73 74 79 Respiratory Rate 24 25 H 20 Respiratory Effort / Characteristics Respiratory Depth Blood Pressure 87/53 L 95/55 L 115/63 Blood Pressure Mean 64 68 80 Pulse Oximetry 93 96 98 Oxygen Delivery Method 03/25/19 02:00 03/25/19 02:15 03/25/19 02:30 Temperature Temperature Source Sepsis Recent Fever Within 48 Hours Sepsis Action Taken by Nursing Pulse Rate 79 82 83 Pulse Rate from SpO2 Sensor 79 82 83 Respiratory Rate 22 25 H 17 Respiratory Effort / Characteristics Respiratory Depth Blood Pressure 129/67 119/59 L 132/56 L Blood Pressure Mean 87 79 81 Pulse Oximetry 97 97 96 Oxygen Delivery Method Constitutional: Vital signs reviewed. Eyes: No sclera icterus. Pupils are equal round reactive to light. Conjunctiva are noninjected. ENT: No swelling to tongue or uvula. Pharynx is clear without erythema or exudate. Mucous membranes are moist. Neck supple without meningeal signs. Respiratory: No wheezing or stridor. Clear to auscultation bilaterally. Breath sounds are equal bilaterally. Cardiovascular: Regular rate and rhythm. No rubs or gallops. GI: Soft, nondistended and nontender. Bowel sounds are present. Musculoskeletal: No peripheral edema. No lower extremity tenderness. Integumentary: Diffuse urticaria throughout trunk and extremities. No cyanosis. Neurological: The patient is awake and alert. No focal deficits. Psychiatric: Normal affect. Course 0032: Past medical records reviewed. The patient was evaluated in room B4. A complete history and physical exam was performed. 0101: 3 minutes after IM Decadron, the patient got lightheaded and had a near syncopal episode. Her systolic pressure dropped and HR went down. No new complaints. BP improving with IV fluids. 0138: I reevaluated the patient and she is still hypotensive and feels weak. Systolic BP is still in the 90s. 0208: The patient's daughter states that the patient has had intermittent chest pain and heartburn since January. The patient denies chest pain right now. They are agreeable to hospitalization. 0210: I discussed the patient with Dr. Chowdhury [facility] Hospitalist. He will evaluate the patient for further management. Consultations Consultation #1: I discussed the patient with Dr. Chowdhury [facility] Hospitalist. He will evaluate the patient for further management. Time: 02:10 Administered Medications Discontinued Medications Dexamethasone Sodium Phosphate (Decadron) 10 mg IM NOW STA Stop: 03/25/19 00:38 Last Admin: 08/06/19 00:47 Dose: Not Given Documented by: [id number] Dexamethasone Sodium Phosphate (Decadron Pf) Confirm Administered Dose 10 mg .ROUTE .STK-MED ONE Stop: 03/25/19 00:46 Last Admin: 03/25/19 00:47 Dose: 10 mg Documented by: [id number] Famotidine (Pepcid) 20 mg PO NOW ONE Stop: 03/25/19 00:38 Last Admin: 03/25/19 00:47 Dose: 20 mg Documented by: [id number] Sodium Chloride (Nss 1000ml) 500 mls @ 999 mls/hr IV .Q31M ONE Stop: 03/25/19 01:38 Last Infusion: 03/25/19 01:41 Dose: 0 mls/hr Documented by: [id number] Admin: 03/25/19 01:00 Dose: 999 mls/hr Documented by: [id number] Loratadine (Claritin) 10 mg PO NOW ONE Stop: 03/25/19 02:29 Last Admin: 03/25/19 03:30 Dose: 10 mg Documented by: [id number] Medical Decision Making Differential Diagnosis Differentials include urticaria, allergic reaction, anaphylaxis, angioedema, anaphylactoid reaction. Medical Records Attestation: I reviewed the patient's medical records. Seen here in January for chest pain Home Medications Current Medication List: was personally reviewed by me Laboratory Data Attestation: I reviewed the patient's lab results. Result diagrams: 03/25/19 01:18 03/25/19 01:18 Lab Results 03/25/19 03/25/19 03/25/19 Range/Units 01:18 01:18 01:18 WBC 14.02 H (4.8-10.8) K/uL RBC 5.02 (4.2-5.4) M/uL Hgb 15.1 (12.0-16.0) g/dL Hct 45.0 (37-47) % MCV 89.6 (80-100) fL MCH 30.1 (25-34) pg MCHC 33.6 (32-36) g/dL RDW Std Deviation 43.5 (36.4-46.3) fL RDW Coeff of Nikko 13.3 (11.5-14.5) % Plt Count 274 (130-400) K/uL MPV 9.9 (7.4-10.4) fL Immature Gran % (Auto) 0.3 % Neut % (Auto) 66.3 % Lymph % (Auto) 21.8 % Dale % (Auto) 8.6 % Eos % (Auto) 2.9 % Baso % (Auto) 0.1 % Immature Gran # (Auto) 0.04 H (0.00-0.02) K/uL Neut # (Auto) 9.30 H (1.4-6.5) K/uL Lymph # (Auto) 3.06 (1.2-3.4) K/uL Dale # (Auto) 1.20 H (0.11-0.59) K/uL Eos # (Auto) 0.40 (0-0.5) K/uL Baso # (Auto) 0.02 (0-0.2) K/uL PT 11.0 (9.0-12.0) Seconds INR 1.1 (0.9-1.1) APTT 22.4 (21.0-31.0) Seconds PTT Ratio 0.8 Sodium 137 (136-145) mmol/L Potassium 3.7 (3.5-5.1) mmol/L Chloride 99 (98-107) mmol/L Carbon Dioxide 31 (21-32) mmol/L Anion Gap 7.0 (3-11) BUN 30 H (7-18) mg/dl Creatinine 1.02 (0.6-1.2) mg/dl Est Cr Clr Drug Dosing 57.4 ml/min Est GFR ( Amer) 63.2 Est GFR (Non-Af Amer) 54.5 BUN/Creatinine Ratio 29.5 H (10-20) Glucose 147 H (70-99) mg/dl Lactate (0.4-2.0) mmol/L Calcium 8.9 (8.5-10.1) mg/dl Total Bilirubin 0.6 (0.2-1) mg/dl AST 43 H (15-37) U/L ALT 154 H (12-78) U/L Alkaline Phosphatase 267 H (45-117) U/L Troponin I < 0.015 (0-0.045) ng/ml Total Protein 6.5 (6.4-8.2) gm/dl Albumin 3.1 L (3.4-5.0) gm/dl Globulin 3.4 (2.5-4.0) gm/dl Albumin/Globulin Ratio 0.9 (0.9-2) Lipase 199 (73-393) U/L Procalcitonin (0-0.5) ng/ml TSH 7.720 H (0.300-4.500) uIu/ml Free T4 1.03 (0.8-1.6) ng/dl 03/25/19 03/25/19 Range/Units 01:18 02:57 WBC (4.8-10.8) K/uL RBC (4.2-5.4) M/uL Hgb (12.0-16.0) g/dL Hct (37-47) % MCV (80-100) fL MCH (25-34) pg MCHC (32-36) g/dL RDW Std Deviation (36.4-46.3) fL RDW Coeff of Nikko (11.5-14.5) % Plt Count (130-400) K/uL MPV (7.4-10.4) fL Immature Gran % (Auto) % Neut % (Auto) % Lymph % (Auto) % Dale % (Auto) % Eos % (Auto) % Baso % (Auto) % Immature Gran # (Auto) (0.00-0.02) K/uL Neut # (Auto) (1.4-6.5) K/uL Lymph # (Auto) (1.2-3.4) K/uL Dale # (Auto) (0.11-0.59) K/uL Eos # (Auto) (0-0.5) K/uL Baso # (Auto) (0-0.2) K/uL PT (9.0-12.0) Seconds INR (0.9-1.1) APTT (21.0-31.0) Seconds PTT Ratio Sodium (136-145) mmol/L Potassium (3.5-5.1) mmol/L Chloride (98-107) mmol/L Carbon Dioxide (21-32) mmol/L Anion Gap (3-11) BUN (7-18) mg/dl Creatinine (0.6-1.2) mg/dl Est Cr Clr Drug Dosing ml/min Est GFR ( Amer) Est GFR (Non-Af Amer) BUN/Creatinine Ratio (10-20) Glucose (70-99) mg/dl Lactate 1.2 (0.4-2.0) mmol/L Calcium (8.5-10.1) mg/dl Total Bilirubin (0.2-1) mg/dl AST (15-37) U/L ALT (12-78) U/L Alkaline Phosphatase (45-117) U/L Troponin I (0-0.045) ng/ml Total Protein (6.4-8.2) gm/dl Albumin (3.4-5.0) gm/dl Globulin (2.5-4.0) gm/dl Albumin/Globulin Ratio (0.9-2) Lipase (73-393) U/L Procalcitonin < 0.05 (0-0.5) ng/ml TSH (0.300-4.500) uIu/ml Free T4 (0.8-1.6) ng/dl Imaging Data Attestation: I personally reviewed and interpreted this imaging study as fo llows: My Impression: XR chest 1-view No pneumonia, no CHF. ECG Data Attestation: I personally reviewed and interpreted this ECG as follows: Indication: other (near syncope) Rate (beats per minute): 69 Rhythm: normal sinus Findings: + ST elevation (slight in V2); no PVC Additional Comments: SECOND EKG Indication: near syncope Rate: 79 Rhythm: normal sinus Findings: minimal ST elevation in V2, no PVC. Blood Pressure Blood Pressure Findings: Normal blood pressure Blood Pressure Disposition: did not require urgent referral MDM Narrative I did evaluate the patient as noted above. The patient is presenting with what appear to be urticaria. She did take Benadryl at home and so I did treat her with IM Decadron and Pepcid p.o. The nurse states that about 3 to 5 minutes after receiving the Decadron the patient developed a near syncopal episode. Her heart rate and blood pressure dropped. I did assess the patient. She has no specific complaints other than feeling lightheaded. She seemed to have a vasovagal reaction although I did feel further work-up was warranted. IV access was established. The patient was placed on a continuous extractor loader and unloader. She was given a bolus of normal saline. I did order and personally review the patient's 12-lead EKG as described above. She does have some slight ST elevation in V2 only. The patient denies having any chest discomfort. Her daughter states that she has been having intermittent chest discomfort over the past several months. She was told that this was likely from reflux and is scheduled to see a GI doctor. I did order and personally reviewed the images of the patient's chest x-ray as described above. There is no evidence of pneumonia. I did order a urine analysis. I did order and review the patient's blood work as noted in the electronic medical record. Her white count is elevated. Electrolytes are unremarkable. Troponin is negative. I did order a second twelve-lead EKG which shows again some slight elevation of the ST segment in V2 only. No ST depressions elsewhere. No other abnormalities. The patient denies having any chest pain at this time. I did recommend hospitalization for further care and evaluation. I did discuss the case with the hospitalist and case loader operator. Impression & Plan Near syncope, Urticaria, Hypotension, Abnormal LFTs, Abnormal EKG Discharge Plan Visit Data Chief Complaint: Allergic Reaction Stated Complaint: COVERED IN HIVES,THROAT SWELLING ED Provider: Kody Vargas Discharge Problem: Near syncope, Urticaria, Hypotension, Abnormal LFTs, Abnormal EKG Patient Disposition: Being Evaluated by Hospitalist Forms Stand Alone Forms: My [facility], Important Visit Information Prescriptions Prescriptions: No Action hydrochlorothiazide 50 mg Tablet 50 mg PO QPM RF: 0 aspirin [Aspir-81] 81 mg Tablet,Delayed Release (Dr/Ec) 81 mg PO QAM RF: 0 calcium carbonate [Tums] 200 mg calcium (500 mg) Tablet,Chewable 200 mg PO TID PRN (Reason: Indigestion) RF: 0 lisinopril 5 mg Tablet 5 mg PO QPM RF: 0 metoprolol succinate 25 mg Tablet Extended Release 24 Hr 12.5 mg PO QPM RF: 0 garlic 400 mg Tablet 400 mg PO QPM RF: 0 coenzyme Q10 [CoQ-10] 100 mg Capsule 100 mg PO QAM RF: 0 diclofenac sodium 1 % Gel 4 g TOPICAL QID PRN (Reason: KNEE PAIN) RF: 0 omega 8-vso-avm-fish oil [Fish Oil] 1,000 mg (120 mg-180 mg) Capsule 1 cap PO QAM RF: 0 Christy-C with Bioflavonoids 1,000-200 mg Tablet 1 tab PO BID RF: 0 pravastatin 10 mg tablet 10 mg PO QPM RF: 0 Ocuvite Eye Health 50 mg-15 unit- 4.5 mg-2.5 mg Tablet,Chewable 1 tab PO DAILY RF: 0 Referrals Referrals: Mercedes Kilgore DO [Primary Care Provider] - Discharge Problem: Hypotension Qualifiers: Hypotension type: unspecified hypotension type Qualified Code(s): I95.9 - Hypotension, unspecified The scribe's documentation has been prepared under my direction and personally reviewed by me in its entirety. I confirm that the note above accurately reflects all work, treatment, procedures, and medical decision making performed by me.
--- NOTE | 2019-03-25 03:56 | History & Physical Report ---
Date of Service March 25, 2019 Assessment & Plan (1) Transient hypotension: ? Vagal response hx HTN Rule out cardiac pathology BP currently improved at the ER. Recurrent urticaria ? Secondary to L ankle brace for Achilles tendinitis Rule out systemic illness (mastocytosis), occult infection Resolved after initial intervention at the ER. hyperlipidemia, statin currently on hold due to intolerance, abnormal LFTs Transaminitis secondary to statin rx ? Related to recurrent urticaria levels noted to be improving since statin held hx stroke as per records PVD status post surgery hx Lyme disease status post Rx Hyperglycemia secondary to IV Decadron administration upon arrival at the ER rule out DM OBS Medical telemetry TTE RE hypotension Check serum tryptase level Inquire from podiatry on follow-up visit March 27 about possible alternative to current left ankle brace material for Achilles tendinitis. Loratadine daily for now. Outpatient Allergology referral Re: Recurrent urticaria Follow outpatient liver ultrasound results. Inpatient GI consultation as per patient's family request Re: Transaminitis (Patient was slated to see service outpatient this week.) Check hemoglobin A1c DVT prophylaxis. Lovenox subcu Full code Patient's daughter requesting updates from providers. Ms. Kitty Gauthier, contact #[phone]. History of Present Illness Chief Complaint: Hives Primary Care Provider: Mercedes Kilgore, History obtained from patient, family, and records. Medical history significant for hypertension, hyperlipidemia, stroke as per records, statin intolerance as per records, PVD status post surgery, hx Lyme disease status post Rx, Achilles tendinitis left Recent confinement 2016 for syncope. Few months history of almost weekly attacks truncal hives as per daughter. No new medications, unusual food intake, new infections or exposure to new environmental agents as per patient/family. Immediate relief with Benadryl intake, topical steroid use. Last night, patient had another urticarial attack. Spreading itchy rash noted on the trunk. Patient denies chest pain, S OB. Denies abdominal pain, diarrhea, dysuria. Throat discomfort without no tongue swelling or hoarseness noted. Patient noted to be flushed by daughter. At the ER, patient received Decadron and famotidine for possible allergic react ion. Improvement of hives and throat symptoms noted. Transient SBP drop to 60s. SBP currently 120s after IVF administration. Patient feels much better. Medical History as above Patient seen at the ER 2 months ago for chest pain. Work-up showed abnormal LFTs. Statin discontinued given abnormal LFTs and patient fatigue symptoms attributed to medication. LFTs trending down from last ER visit on last draw. Outpatient liver ultrasound done a few days ago, results still pending. Outpatient GI consultation scheduled this week. Achilles tendinitis, L since November 2018 for which patient is wearing an ankle brace. Patient refusing boot recommendation by Podiatry. Surgical History : eye surgery, carotid endarterectomy, vaginal myomectomy Family History : Diabetes, heart disease, thyroid disorder Personal/Social history : Non-smoker, no EtOH intake, retired [employer] employee Allergies Allergy/AdvReac Type Severity Reaction Status Date / Time aspirin Allergy Mild HIVES Verified 03/25/19 01:28 Home Medications Home Medications Medication Instructions Recorded Confirmed Type ascorbate calcium-bioflavonoid 1 tab PO BID 01/21/19 03/25/19 History [Christy-C with Bioflavonoids] aspirin [Aspir-81] 81 mg PO QAM 01/21/19 03/25/19 History calcium carbonate [Tums] 200 mg PO TID PRN 01/21/19 03/25/19 History coenzyme Q10 [CoQ-10] 100 mg PO QAM 01/21/19 03/25/19 History diclofenac sodium 4 g TOPICAL QID PRN 01/21/19 03/25/19 History garlic 400 mg PO QPM 01/21/19 03/25/19 History hydrochlorothiazide 50 mg PO QPM 01/21/19 03/25/19 History lisinopril 5 mg PO QPM 01/21/19 03/25/19 History metoprolol succinate 12.5 mg PO QPM 01/21/19 03/25/19 History omega 9-ntd-uut-fish oil [Fish Oil] 1 cap PO QAM 01/21/19 03/25/19 History pravastatin 10 mg PO QPM 03/25/19 03/25/19 History vit C-E-zinc rtc-hwdgkf-omdmmh 1 tab PO DAILY 03/25/19 03/25/19 [facility] Past Med/Surg History Medical History Confusion (Acute 10/25/13) Sepsis Family History Other Family history non-contributory Social History Communication Ability: Effective Current Living Situation: Family Other Information That Helps Us Care for You: No Feels Safe at Home: Yes Safety Concerns: Feels Safe At This Time Smoking Status: Never smoker Hx Alcohol Use: No Hx Substance Use: No Review of Systems Review of Systems: As per HPI, all 10 systems reviewed, all other ROS negative Physical Exam Physical Exam: GENERAL: Comfortable, pleasant, no respiratory distress SKIN: Normal color, warm HEENT: Bespectacled, pink palpebral conjunctivae, no ptosis, dry buccal mucosa NECK : Supple, healed incisional scar, no tenderness CHEST : CTA, no tenderness HEART : RRR, no obvious murmurs ABDOMEN: Some distention, nontender EXTREMITIES : Minimal LE swelling, no overt LE tenderness, ankle brace, left NEUROLOGIC : Coherent, no facial asymmetry, no other gross focality Results & Data Vital Signs (Past 12 Hours) Vital Signs Temp Pulse Resp BP Pulse Ox 03/25/19 02:30 83 17 132/56 L 96 03/25/19 02:15 82 25 H 119/59 L 97 03/25/19 02:00 79 22 129/67 97 03/25/19 01:45 80 20 115/63 98 03/25/19 01:32 74 25 H 95/55 L 96 03/25/19 01:30 74 24 87/53 L 93 03/25/19 01:29 72 26 H 91/55 L 96 03/25/19 01:26 73 24 88/55 L 97 03/25/19 01:13 95 03/25/19 01:03 65 21 96/53 L 97 03/25/19 01:00 63 19 63/36 L 99 03/25/19 00:25 36.3 C L 102 H 18 115/75 99 Laboratory Results Laboratory Results WBC 14.02 K/uL (4.8-10.8) H 03/25/19 01:18 RBC 5.02 M/uL (4.2-5.4) 03/25/19 01:18 Hgb 15.1 g/dL (12.0-16.0) 03/25/19 01:18 Hct 45.0 % (37-47) 03/25/19 01:18 MCV 89.6 fL (80-100) 03/25/19 01:18 MCH 30.1 pg (25-34) 03/25/19 01:18 MCHC 33.6 g/dL (32-36) 03/25/19 01:18 RDW Std Deviation 43.5 fL (36.4-46.3) 03/25/19 01:18 RDW Coeff of Nikko 13.3 % (11.5-14.5) 03/25/19 01:18 Plt Count 274 K/uL (130-400) 03/25/19 01:18 MPV 9.9 fL (7.4-10.4) 03/25/19 01:18 Immature Gran % (Auto) 0.3 % 03/25/19 01:18 Neut % (Auto) 66.3 % 03/25/19 01:18 Lymph % (Auto) 21.8 % 03/25/19 01:18 Jessamine % (Auto) 8.6 % 03/25/19 01:18 Eos % (Auto) 2.9 % 03/25/19 01:18 Baso % (Auto) 0.1 % 03/25/19 01:18 Immature Gran # (Auto) 0.04 K/uL (0.00-0.02) H 03/25/19 01:18 Neut # (Auto) 9.30 K/uL (1.4-6.5) H 03/25/19 01:18 Lymph # (Auto) 3.06 K/uL (1.2-3.4) 03/25/19 01:18 Jessamine # (Auto) 1.20 K/uL (0.11-0.59) H 03/25/19 01:18 Eos # (Auto) 0.40 K/uL (0-0.5) 03/25/19 01:18 Baso # (Auto) 0.02 K/uL (0-0.2) 03/25/19 01:18 PT 11.0 Seconds (9.0-12.0) 03/25/19 01:18 INR 1.1 (0.9-1.1) 03/25/19 01:18 APTT 22.4 Seconds (21.0-31.0) 03/25/19 01:18 PTT Ratio 0.8 03/25/19 01:18 Sodium 137 mmol/L (136-145) 03/25/19 01:18 Potassium 3.7 mmol/L (3.5-5.1) 03/25/19 01:18 Chloride 99 mmol/L (98-107) 03/25/19 01:18 Carbon Dioxide 31 mmol/L (21-32) 03/25/19 01:18 Anion Gap 7.0 (3-11) 03/25/19 01:18 BUN 30 mg/dl (7-18) H 03/25/19 01:18 Creatinine 1.02 mg/dl (0.6-1.2) 03/25/19 01:18 Est Cr Clr Drug Dosing 57.4 ml/min 03/25/19 01:18 Est GFR ( Amer) 63.2 03/25/19 01:18 Est GFR (Non-Af Amer) 54.5 03/25/19 01:18 BUN/Creatinine Ratio 29.5 (10-20) H 03/25/19 01:18 Glucose 147 mg/dl (70-99) H 03/25/19 01:18 Lactate 1.2 mmol/L (0.4-2.0) 03/25/19 02:57 Calcium 8.9 mg/dl (8.5-10.1) 03/25/19 01:18 Total Bilirubin 0.6 mg/dl (0.2-1) 03/25/19 01:18 AST 43 U/L (15-37) H 03/25/19 01:18 ALT 154 U/L (12-78) H 03/25/19 01:18 Alkaline Phosphatase 267 U/L (45-117) H 03/25/19 01:18 Troponin I < 0.015 ng/ml (0-0.045) 03/25/19 01:18 Total Protein 6.5 gm/dl (6.4-8.2) 03/25/19 01:18 Albumin 3.1 gm/dl (3.4-5.0) L 03/25/19 01:18 Globulin 3.4 gm/dl (2.5-4.0) 03/25/19 01:18 Albumin/Globulin Ratio 0.9 (0.9-2) 03/25/19 01:18 Lipase 199 U/L (73-393) 03/25/19 01:18 Procalcitonin < 0.05 ng/ml (0-0.5) 03/25/19 01:18 TSH 7.720 uIu/ml (0.300-4.500) H 03/25/19 01:18 Free T4 1.03 ng/dl (0.8-1.6) 03/25/19 01:18 Diagnostic Findings Chest x-ray as per my interpretation cardiomegaly EKG as per my interpretation : Rate 70, NSR, LAD, LAFB, T wave inversion inferior leads
[2019-03-25 04:04] LABS: Lyme Ab IgG w/WB Rflx Negative (Negative); Lyme Ab IgM w/WB Rflx Negative (Negative)
[2019-03-25] MEDS ORDERED: NITROGLYCERIN SL 0.4 MG/TAB TAB SL PRN (05:07)
[2019-03-25] MEDS ORDERED: DiphenhydrAMINE HCL 50 MG/ML VIAL IV PRN (05:07)
[2019-03-25] MEDS ORDERED: NSS + 20MEQ KCL 20 MEQ/1,000 ML BAG IV ONE (05:07)
[2019-03-25] MEDS ORDERED: TRAMADOL HCL 50 MG TABLET PO PRN (05:07)
[2019-03-25] MEDS ORDERED: ACETAMINOPHEN 325 MG TAB PO PRN (05:07)
[2019-03-25] MEDS ORDERED: PROMETHAZINE HCL 12.5 MG in SODIUM CHLORIDE 0.9% 50 ML IV PRN (05:07)
[2019-03-25 06:07] LABS: Estimated Average Glucose 123 mg/dl; Hemoglobin A1C 5.9 % (4.5-5.6)
--- NOTE | 2019-03-25 06:59 | XRay Report ---
XR chest 1V portable CLINICAL HISTORY: 73 years-old Female presenting with allergic reaction, eval for pna. TECHNIQUE: Portable upright AP view of the chest was obtained. COMPARISON: 01/21/2019. FINDINGS: Atherosclerosis of the aortic arch. Cardiac silhouette borderline enlarged. No focal opacity. No larg e effusion or pneumothorax. Osseous structures normal. Upper abdomen normal. IMPRESSION: 1. Borderline cardiomegaly. Otherwise no acute cardiopulmonary disease. Electronically signed by: Michael Zepeda M.D. 03/25/2019 6:58 AM
[2019-03-25] MEDS: ENOXAPARIN INJ 30 MG/0.3 ML SYR SQ SCH (08:20)
[2019-03-25] MEDS ORDERED: ASPIRIN 81 MG ECTAB PO SCH (09:00)
--- NOTE | 2019-03-25 09:12 | Hospitalist Progress Note ---
Date of Service March 25, 2019 Assessment & Plan (1) Transient hypotension: ? Vagal response hx HTN Rule out cardiac pathology BP currently improved at the ER. Recurrent urticaria ? Secondary to L ankle brace for Achilles tendinitis Rule out systemic illness (mastocytosis), occult infection Resolved after initial intervention at the ER. hyperlipidemia, statin currently on hold due to intolerance, abnormal LFTs Transaminitis secondary to statin rx ? Related to recurrent urticaria levels noted to be improving since statin held hx stroke as per records PVD status post surgery hx Lyme disease status post Rx Hyperglycemia secondary to IV Decadron administration upon arrival at the ER rule out DM OBS Medical telemetry TTE RE hypotension Check serum tryptase level Inquire from podiatry on follow-up visit March 27 about possible alternative to current left ankle brace material for Achilles tendinitis. Loratadine daily for now. Outpatient Allergology referral Re: Recurrent urticaria Follow outpatient liver ultrasound results. Inpatient GI consultation as per patient's family request Re: Transaminitis (Patient was slated to see service outpatient this week.) Check hemoglobin A1c DVT prophylaxis. Lovenox subcu Full code Patient's daughter requesting updates from providers. Ms. Kitty Gauthier, contact #[phone]. (2) Urticaria: Associated with episode of sensation of throat swelling, hypotension in the ER Possible urticaria with anaphylaxis Etiology unknown at this time Possible drug allergies including aspirin, lisinopril Patient reports developing hives with high dose of aspirin, but takes 81 mg daily, was tolerating until 2 months ago when she started to develop urticarial rashes almost weekly, Topical steroid cream and occasional Benadryl p.o. Also has been taking lisinopril for many years Was given IV Decadron and loratadine, IV fluids at the ER, resolution of hypotension and urticarial rash This morning the patient is hemodynamically stable and symptoms have resolved Discussed case with Dr. Urrutia Agree with Solu-Medrol for today, 40 mg IV every 12 Then prednisone taper starting at 40 mg, for 1 week ; Zyrtec 10 mg p.o. daily Also, patient needs to be discharged with EpiPen and as needed Benadryl To follow-up with Dr. Urrutia as an outpatient for further work-up including autoimmune diseases Hypertension Resented with episode of hypotension yesterday Blood pressure is improved Continue metoprolol Hold lisinopril and hydrochlorthiazide for today Monitor History of carotid stenosis On chronic aspirin and pravastatin Hold aspirin for now in light of urticarial rash May need to be transitioned to Plavix, reaching out to patient's nurse practitioner Buddy Luis, vascular surgery Delfin Lopez, awaiting callback Abnormal LFTs Attributed to statin Improving She has GI follow-up this week DVT prophylaxis Lovenox Disposition Anticipate discharge to home tomorrow Follow-up with primary care physician within 1 week Follow-up with [facility] allergy clinic, Dr. Urrutia-patient should call [employer] number and ask for the allergy clinic nurse Follow-up with GI, cardiovascular surgery as an outpatient as scheduled Subjective Follow-up for urticaria, episode of hypotension Seen sitting up in bed, comfortable, not in distress, pleasant States she feels tired but otherwise feels fine No recurrence of particular rash, pruritus, throat swelling/discomfort No dizziness/lightheadedness, chest pain, shortness of breath, palpitations No abdominal pain, nausea vomiting, headache Denies any symptoms Review of Systems Review of Systems: All systems reviewed & are unremarkable except as noted in HPI & below Physical Exam Physical Exam: General- oriented x 3, not in distress, speaks in sentences with no effort or accessory muscle use Head- atraumatic Eyes- PERRL, EOMI, anicteric ENT- oropharynx clear Neck- supple, no JVD, no adenopathy, no thyromegaly; carotids +2/2, no bruits appreciated Lungs- clear to auscultation bilaterally, no rales/wheezes Heart- normal rate, regular rhythm; no murmur, no gallop, no rub appreciated Abdomen- normal bowel sounds, nondistended, soft, nontender, no masses or hepatosplenomegaly Extremities-trace pretibial edema, no calf tenderness; peripheral pulses intact Neuro- alert, oriented x 3; CN 2-12 grossly intact; motor 5/5 bilaterally;sensation 100% on all extremities; no other gross focal neurologic deficits Skin- warm & dry; no rashes Results & Data Vital Signs (Past 12 Hours) Vital Signs Temp Pulse Pulse Resp BP BP BP 03/25/19 07:40 36.3 C L 80 16 123/68 03/25/19 07:09 80 03/25/19 05:00 36.5 C 83 16 137/82 03/25/19 04:30 82 22 114/65 03/25/19 04:15 83 21 113/73 03/25/19 04:00 82 20 116/68 03/25/19 03:45 84 25 H 125/76 03/25/19 03:30 92 H 21 112/64 03/25/19 03:15 84 20 138/76 03/25/19 03:00 82 17 109/69 03/25/19 02:45 85 17 129/84 03/25/19 02:30 83 17 132/56 L 03/25/19 02:15 82 25 H 119/59 L 03/25/19 02:00 79 22 129/67 03/25/19 01:45 80 20 115/63 03/25/19 01:32 74 25 H 95/55 L 03/25/19 01:30 74 24 87/53 L 03/25/19 01:29 72 26 H 91/55 L 03/25/19 01:26 73 24 88/55 L 03/25/19 01:13 03/25/19 01:03 65 21 96/53 L 03/25/19 01:00 63 19 63/36 L 03/25/19 00:25 36.3 C L 102 H 18 115/75 Pulse Ox 03/25/19 07:40 94 03/25/19 07:09 03/25/19 05:00 96 03/25/19 04:30 95 03/25/19 04:15 95 03/25/19 04:00 97 03/25/19 03:45 96 03/25/19 03:30 97 03/25/19 03:15 94 03/25/19 03:00 96 03/25/19 02:45 97 03/25/19 02:30 96 03/25/19 02:15 97 03/25/19 02:00 97 03/25/19 01:45 98 03/25/19 01:32 96 03/25/19 01:30 93 03/25/19 01:29 96 03/25/19 01:26 97 03/25/19 01:13 95 03/25/19 01:03 97 03/25/19 01:00 99 03/25/19 00:25 99 Laboratory Results Laboratory Results - last 24 hr 03/25/19 03/25/19 03/25/19 01:18 01:18 01:18 WBC 14.02 H RBC 5.02 Hgb 15.1 Hct 45.0 MCV 89.6 MCH 30.1 MCHC 33.6 RDW Std Deviation 43.5 RDW Coeff of Nikko 13.3 Plt Count 274 MPV 9.9 Immature Gran % (Auto) 0.3 Neut % (Auto) 66.3 Lymph % (Auto) 21.8 Dickens % (Auto) 8.6 Eos % (Auto) 2.9 Baso % (Auto) 0.1 Immature Gran # (Auto) 0.04 H Neut # (Auto) 9.30 H Lymph # (Auto) 3.06 Dickens # (Auto) 1.20 H Eos # (Auto) 0.40 Baso # (Auto) 0.02 PT 11.0 INR 1.1 APTT 22.4 PTT Ratio 0.8 Sodium 137 Potassium 3.7 Chloride 99 Carbon Dioxide 31 Anion Gap 7.0 BUN 30 H Creatinine 1.02 Est Cr Clr Drug Dosing 57.4 Est GFR ( Amer) 63.2 Est GFR (Non-Af Amer) 54.5 BUN/Creatinine Ratio 29.5 H Glucose 147 H Estimat Average Glucose Hemoglobin A1c Lactate Calcium 8.9 Total Bilirubin 0.6 AST 43 H ALT 154 H Alkaline Phosphatase 267 H Troponin I < 0.015 Total Protein 6.5 Albumin 3.1 L Globulin 3.4 Albumin/Globulin Ratio 0.9 Lipase 199 Tryptase Procalcitonin TSH 7.720 H Free T4 1.03 Total T3 Lyme Disease IgG Ab Lyme Disease IgM Ab 03/25/19 03/25/19 03/25/19 01:18 01:18 01:18 WBC RBC Hgb Hct MCV MCH MCHC RDW Std Deviation RDW Coeff of Nikko Plt Count MPV Immature Gran % (Auto) Neut % (Auto) Lymph % (Auto) Dickens % (Auto) Eos % (Auto) Baso % (Auto) Immature Gran # (Auto) Neut # (Auto) Lymph # (Auto) Dickens # (Auto) Eos # (Auto) Baso # (Auto) PT INR APTT PTT Ratio Sodium Potassium Chloride Carbon Dioxide Anion Gap BUN Creatinine Est Cr Clr Drug Dosing Est GFR ( Amer) Est GFR (Non-Af Amer) BUN/Creatinine Ratio Glucose Estimat Average Glucose 123 Hemoglobin A1c 5.9 H Lactate Calcium Total Bilirubin AST ALT Alkaline Phosphatase Troponin I Total Protein Albumin Globulin Albumin/Globulin Ratio Lipase Tryptase Procalcitonin < 0.05 TSH Free T4 Total T3 1.00 Lyme Disease IgG Ab Lyme Disease IgM Ab 03/25/19 03/25/19 03/25/19 01:18 02:57 08:01 WBC RBC Hgb Hct MCV MCH MCHC RDW Std Deviation RDW Coeff of Nikko Plt Count MPV Immature Gran % (Auto) Neut % (Auto) Lymph % (Auto) Dickens % (Auto) Eos % (Auto) Baso % (Auto) Immature Gran # (Auto) Neut # (Auto) Lymph # (Auto) Dickens # (Auto) Eos # (Auto) Baso # (Auto) PT INR APTT PTT Ratio Sodium Potassium Chloride Carbon Dioxide Anion Gap BUN Creatinine Est Cr Clr Drug Dosing Est GFR ( Amer) Est GFR (Non-Af Amer) BUN/Creatinine Ratio Glucose Estimat Average Glucose Hemoglobin A1c Lactate 1.2 Calcium Total Bilirubin AST ALT Alkaline Phosphatase Troponin I Total Protein Albumin Globulin Albumin/Globulin Ratio Lipase Tryptase Pending Procalcitonin TSH Free T4 Total T3 Lyme Disease IgG Ab Negative Lyme Disease IgM Ab Negative
[2019-03-25] MEDS: methylPREDNISolone 40 MG in SYRINGE 0 ML IV SCH ×2 (10:03→21:39)
[2019-03-25 10:18] LABS: Appearance Urine Clear (Clear); Bilirubin Urine Negative (Negative); Blood Urine Negative (Negative); Color Urine Yellow; Glucose Urine UA Negative (Negative); Ketones Urine Negative (Negative); Leukocyte Esterase Urine Negative (Negative); Nitrite Urine Negative (Negative); Protein Urine Negative (Negative); Specific Gravity Urine 1.014 (1.000-1.030); Urobilinogen Urine Negative (Negative); pH Urine 6.5 (4.5-7.5)
--- NOTE | 2019-03-25 13:45 | Gastrointestinal Consultation ---
Date of Consultation March 25, 2019 Assessment & Plan (1) Abnormal LFTs: Pt is a 73 y/o female, currently seen for elevated LFTs which is improving. Undergoing workup for this since January. Initially thought that she may have statin induced DILI but LFTs are improved Outpt workup so far significant for elevated AUGUSTA, Ferritin and Transferrin sat though elevated Ferritin may be seen with tranasminitis as well. Abd u/s done on 03/21 pending. - She had full serologies workup as outpt thus won't repeat these. Will add HFE DNA test to r/o hemochromotosis given high Ferritin and Trasn sat. - Will ask [facility] to read u/s done on 03/21 - Discussed possible causes of LFTs elevation and s/s of liver failure. DDx: AIH, DILI, ischemic hepatopathy (hx of dyslipidemia, carotid stenosis). - Would consider liver bx if LFTs not normalizing. Attg add: I interviewed and examined pt, reviewed chart and labs, agree with above. Pt with possible DILI from pravastatin. Cont follow LFT's --- EUS liver bx if stil high in a few weeks. History of Present Illness Reason for Consultation: Elevated LFTs Requesting Physician: Dr. Umair Garcia Attending Physician: Dr. Ulysses Reyes History of Present Illness Pt is a 73 y/o female currently admitted for urticaria and hives around hips/waist, arms and thighs. Unknown etiology but has resolved after administration of Prednisone and Benadryl. GI consulted for evaluation of elevated LFTs which upon chart review had been present since January and pt is getting outpt workup via PCP. In fact she has appt with EMRE Pacheco in GI clinic tomorrow. However family had requested for pt to be evaluated while inpt. LFTs trend after acute rise on 01/21 (noted during ED visit for chest pain, SOB), and now: Tbili 1 -> 0.6 AST 890 -> 43 ALT 1032 -> 154 Alk phose 525 -> 267 Outpt workup: AUGUSTA >40 Ferritin 229, Trans sat 50% AMA, ASMA, SPEP, TTG IgA Ab, acute hepatitis panel, alpha 1 antitrypsin, ceruloplasmin all normal Abd u/s pending done 03/21/19 Echo 03/25 aortic valve sclerosis w/o significant stenosis, EF 55-60% Pt denies any symptoms of jaundice, CP, SOB, abd pain, n/v, bowel habit changes, leg edema, abd distension. She denies family hx of liver diseases, autoimmune diseases. Was prescribed Atorvastatin and Pravachol earlier this year but stopped them both around December. Currently not taking. APAP uses - Tylenol extra strength up to 3 tabs a day. Denies any herbal supplements. Denies travels, sick contact. Denies tobacco, ETOH, illicit drugs. Acute Hepatitis Panel negative for Hep A,B,C. Allergies Allergy/AdvReac Type Severity Reaction Status Date / Time aspirin Allergy Mild HIVES Verified 03/25/19 01:28 Home Medications Home Medications Medication Instructions Recorded Confirmed Type ascorbate calcium-bioflavonoid 1 tab PO BID 01/21/19 03/25/19 History [Christy-C with Bioflavonoids] aspirin [Aspir-81] 81 mg PO QAM 01/21/19 03/25/19 History calcium carbonate [Tums] 200 mg PO TID PRN 01/21/19 03/25/19 History coenzyme Q10 [CoQ-10] 100 mg PO QAM 01/21/19 03/25/19 History diclofenac sodium 4 g TOPICAL QID PRN 01/21/19 03/25/19 History garlic 400 mg PO QPM 01/21/19 03/25/19 History hydrochlorothiazide 50 mg PO QPM 01/21/19 03/25/19 History lisinopril 5 mg PO QPM 01/21/19 03/25/19 History metoprolol succinate 12.5 mg PO QPM 01/21/19 03/25/19 History omega 0-oek-gbc-fish oil [Fish Oil] 1 cap PO QAM 01/21/19 03/25/19 History pravastatin 10 mg PO QPM 03/25/19 03/25/19 History vit C-E-zinc ujl-qquagm-jdfvdq 1 tab PO DAILY 03/25/19 03/25/19 History [[facility]] Patient History Medical History Confusion (Acute 10/25/13) Sepsis Family History Other Family history non-contributory Social History Communication Ability: Effective Current Living Situation: Family Other Information That Helps Us Care for You: No Feels Safe at Home: Yes Safety Concerns: Feels Safe At This Time Smoking Status: Never smoker Hx Alcohol Use: No Hx Substance Use: No Review of Systems Review of Systems: All systems reviewed & are unremarkable except as noted in HPI & below Physical Exam Constitutional: WD/WN, vitals as above well groomed, cooperative and comfortable Eyes: PERRL, conjunctivae normal, anicteric sclerae ENMT: external ear and nose normal, oropharynx normal Respiratory: normal respiratory effort, lungs clear to auscultation Cardiovascular: RRR, no murmur, no edema Gastrointestinal (Abdomen): normal bowel sounds, soft, nontender, no hepatosplenomegaly Skin: no rashes, warm and dry no jaundice Psychiatric: A+Ox3, euthymic affect Lymphatic: no lymphedema Results & Data Vital Signs (Past 12 Hours) Vital Signs Temp Pulse Pulse Pulse Resp BP BP 03/25/19 11:24 36.4 C L 99 H 17 03/25/19 07:40 36.3 C L 80 16 03/25/19 07:09 80 03/25/19 05:00 36.5 C 83 16 137/82 03/25/19 04:30 82 22 114/65 03/25/19 04:15 83 21 113/73 03/25/19 04:00 82 20 116/68 03/25/19 03:45 84 25 H 125/76 03/25/19 03:30 92 H 21 112/64 03/25/19 03:15 84 20 138/76 03/25/19 03:00 82 17 109/69 03/25/19 02:45 85 17 129/84 03/25/19 02:30 83 17 132/56 L 03/25/19 02:15 82 25 H 119/59 L 03/25/19 02:00 79 22 129/67 03/25/19 01:45 80 20 115/63 BP Pulse Ox 03/25/19 11:24 126/76 95 03/25/19 07:40 123/68 94 03/25/19 07:09 03/25/19 05:00 96 03/25/19 04:30 95 03/25/19 04:15 95 03/25/19 04:00 97 03/25/19 03:45 96 03/25/19 03:30 97 03/25/19 03:15 94 03/25/19 03:00 96 03/25/19 02:45 97 03/25/19 02:30 96 03/25/19 02:15 97 03/25/19 02:00 97 03/25/19 01:45 98
[2019-03-25] MEDS ORDERED: LISINOPRIL 5 MG TAB PO SCH (21:00)
[2019-03-25] MEDS ORDERED: METOPROLOL SUCC 25MG EXT REL TAB PO SCH (21:00)
[2019-03-26] MEDS: ENOXAPARIN INJ 30 MG/0.3 ML SYR SQ SCH (08:35)
[2019-03-26] MEDS ORDERED: LORATADINE 10 MG TAB PO SCH (09:00)
[2019-03-26] MEDS ORDERED: predniSONE 20 MG TAB PO SCH (09:00)
[2019-03-26] MEDS ORDERED: CETIRIZINE HCL 10 MG TABLET PO SCH (09:00)
[2019-03-26 09:14] LABS: Albumin Level 3.4 gm/dl (3.4-5.0); Bilirubin Direct 0.2 mg/dl (0-0.2); Total Protein 7.3 gm/dl (6.4-8.2)
--- NOTE | 2019-03-26 10:51 | History & Physical Bridge Note ---
Date of Service March 26, 2019 History & Physical Bridge Note I have examined the patient, reviewed the History & Physical and in the interval since the performance of the History & Physical I have noted the following changes of clinical significance: no changes noted GI short note: LFTs reviewed, improving. Pt doing well. No new GI plans and she is made GI f/u appt on 04/10/19 at 10AM to f/u and trend LFTs.
--- NOTE | 2019-03-26 15:02 | Hospitalist Progress Note ---
Date of Service March 26, 2019 Assessment & Plan (1) Allergic reaction: Presented with generalized rash with intense itching, tongue lip swelling, difficulty in swallowing Symptom has resolved completely after IV Solu-Medrol with transition to p.o. prednisone Patient's presenting symptoms suggestive of angioedema,-has been on lisinopril/discontinued since admission Offending medications: Hydrochlorothiazide/aspirin, which are related for rash and hives/discontinued Patient is continued with p.o. Zyrtec, be discharged with Medrol Dosepak, Prescription given for EpiPen, PRN Benadryl Outpatient follow-up with vessel specialist for further evaluation Lisinopril, HCTZ, aspirin added to patient's allergy list (2) Abnormal LFTs: Not sure of the etiology, Does not have any GI symptoms of nausea vomiting bloating abdominal pain or discomfort Liver function test is improved gradually, almost normalized today Atorvastatin kept on hold Patient reports had similar symptoms with another starting 1 year ago Appreciate input from gastroenterology Outpatient follow-up scheduled on 04/10/2019 Patient is asked to not to take atorvastatin, repeat liver function test on next hospital visit clinic appointment scheduled on 03/31/2019 Patient will need discussion regarding alternate cholesterol-lowering meds (3) Hypertension: Presented with hypotension responding to fluids, possible secondary to severe allergic reaction, generalized vasodilatation Blood pressure remains stable HCTZ and lisinopril discontinued secondary to allergic reaction concern Patient is continue with metoprolol 12.5 mg daily Added low-dose Norvasc 2.5 mg daily Will be followed with family physician closely for further adjustment of blood pressure meds(higher dose of beta-sylvain versus increased dose of Norvasc )if indicated (4) Carotid artery disease: Status post carotid artery stent, Aspirin discontinued secondary to allergic reaction Lovastatin kept on hold for abnormal LFT Patient is started on Plavix 75 mg daily, plan of care discussed with vascular surgery in [place] CODE STATUS: Full code Disposition: Stable to be discharged home today Subjective Patient feels fairly well, no rash no itching, No fever or chills, no difficulty in swallowing Eager to be discharged home Physical Exam Constitutional: WD/WN, vitals as above well developed; no acute distress Eyes: PERRL, conjunctivae normal, anicteric sclerae ENMT: external ear and nose normal, oropharynx normal Neck: trachea midline, no thyromegaly Respiratory: normal respiratory effort, lungs clear to auscultation Cardiovascular: RRR, no murmur, no edema Gastrointestinal (Abdomen): normal bowel sounds, soft, nontender, no hepatosplenomegaly Musculoskeletal: no cyanosis or clubbing, extremities motor strength 5/5 Skin: no rashes, warm and dry Neurologic: PERRL, EOMI, accommodation nl, no face palsy, no dysarthria Psychiatric: A+Ox3, euthymic affect Results & Data Vital Signs (Past 12 Hours) Vital Signs Temp Pulse Resp BP BP Pulse Ox 03/26/19 12:09 36.4 C L 84 16 148/81 H 99 03/26/19 07:05 36.8 C 71 18 125/72 94 03/26/19 03:56 36.5 C 78 20 119/71 93
--- NOTE | 2019-03-26 16:19 | Discharge Summary ---
Date of Service March 26, 2019 Admission HPI Per Admitting Provider History obtained from patient, family, and records. Medical history significant for hypertension, hyperlipidemia, stroke as per records, statin intolerance as per records, PVD status post surgery, hx Lyme disease status post Rx, Achilles tendinitis left Recent confinement 2016 for syncope. Few months history of almost weekly attacks truncal hives as per daughter. No new medications, unusual food intake, new infections or exposure to new environmental agents as per patient/family. Immediate relief with Benadryl intake, topical steroid use. Last night, patient had another urticarial attack. Spreading itchy rash noted on the trunk. Patient denies chest pain, S OB. Denies abdominal pain, diarrhea, dysuria. Throat discomfort without no tongue swelling or hoarseness noted. Patient noted to be flushed by daughter. At the ER, patient received Decadron and famotidine for possible allergic reaction. Improvement of hives and throat symptoms noted. Transient SBP drop to 60s. SBP currently 120s after IVF administration. Patient feels much better. Medical History as above Patient seen at the ER 2 months ago for chest pain. Work-up showed abnormal LFTs. Statin discontinued given abnormal LFTs and patient fatigue symptoms attributed to medication. LFTs trending down from last ER visit on last draw. Outpatient liver ultrasound done a few days ago, results still pending. Outpatient GI consultation scheduled this week. Achilles tendinitis, L since November 2018 for which patient is wearing an ankle brace. Patient refusing boot recommendation by Podiatry. Surgical History : eye surgery, carotid endarterectomy, vaginal myomectomy Family History : Diabetes, heart disease, thyroid disorder Personal/Social history : Non-smoker, no EtOH intake, retired [employer] employee Principal Diagnosis ALLERGIC REACTION/ABNORMAL LIVER FUNCTION TEST Discharge Exam Constitutional WD/WN, vitals as above well developed; no acute distress Eyes PERRL, conjunctivae normal, anicteric sclerae ENMT external ear and nose normal, oropharynx normal Neck trachea midline, no thyromegaly Respiratory normal respiratory effort, lungs clear to auscultation Cardiovascular RRR, no murmur, no edema Gastrointestinal (Abdomen) normal bowel sounds, soft, nontender, no hepatosplenomegaly Musculoskeletal no cyanosis or clubbing, extremities motor strength 5/5 Skin no rashes, warm and dry Neurologic PERRL, EOMI, accommodation nl, no face palsy, no dysarthria Psychiatric A+Ox3, euthymic affect Discharge Data Allergies Allergy/AdvReac Type Severity Reaction Status Date / Time lisinopril Allergy Severe Difficulty Verified 03/26/19 14:58 Swallowing hydrochlorothiazide Allergy Intermediate Hives Verified 03/26/19 14:59 aspirin Allergy Mild HIVES Verified 03/25/19 01:28 Consultations 03/25/19 02:09 ED Decision to Admit Stat 03/25/19 05:07 Consult Gastroenterology Routine 03/25/19 09:32 Consult Gastroenterology Routine Hospital Course (1) Allergic reaction: Presented with generalized rash with intense itching, tongue lip swelling, difficulty in swallowing Symptom has resolved completely after IV Solu-Medrol with transition to p.o. prednisone Patient's presenting symptoms suggestive of angioedema,-has been on lisinopril/discontinued since admission Offending medications: Hydrochlorothiazide/aspirin, which are related for rash and hives/discontinued Patient is continued with p.o. Zyrtec, be discharged with Medrol Dosepak, Prescription given for EpiPen, PRN Benadryl Outpatient follow-up with audio visual specialist for further evaluation Lisinopril, HCTZ, aspirin added to patient's allergy list (2) Abnormal LFTs: Not sure of the etiology, Does not have any GI symptoms of nausea vomiting bloating abdominal pain or discomfort Liver function test is improved gradually, almost normalized today Atorvastatin kept on hold Patient reports had similar symptoms with another starting 1 year ago Appreciate input from gastroenterology Outpatient follow-up scheduled on 04/10/2019 Patient is asked to not to take atorvastatin, repeat liver function test on next hospital visit clinic appointment scheduled on 03/31/2019 Patient will need discussion regarding alternate cholesterol-lowering meds (3) Hypertension: Presented with hypotension responding to fluids, possible secondary to se jarett allergic reaction, generalized vasodilatation Blood pressure remains stable HCTZ and lisinopril discontinued secondary to allergic reaction concern Patient is continue with metoprolol 12.5 mg daily Added low-dose Norvasc 2.5 mg daily Will be followed with family physician closely for further adjustment of blood pressure meds(higher dose of beta-sylvain versus increased dose of Norvasc )if indicated (4) Carotid artery disease: Status post carotid artery stent, Aspirin discontinued secondary to allergic reaction Lovastatin kept on hold for abnormal LFT Patient is started on Plavix 75 mg daily, plan of care discussed with vascular surgery in [place] CODE STATUS: Full code Disposition: Stable to be discharged home today Total Time Total Time Spent Total Time Spent (In Minutes): Approximate 45 minutes Total Time Includes: Examination of the Patient, Discharge Planning and Medication Reconciliation Discharge Plan Discharge Items Patient Disposition: Home - Self-Care Reason For Visit: TRANSIENT HYPOTENSION Discharge Diagnosis: ALLERGIC REACTION /ELAVATED LIVER FUNCTION Discharge Goals: Decrease discomfort, Diagnostic testing and Therapeutic intervention Activity: Resume your previous activity Non-emergency contact: Primary Care Provider Call non-emergency contact if: you have any medication questions Follow-up/Referrals: Kim Austin [Nurse Practitioner] - 04/10/19 9:45 am Diet: Heart Healthy Other Ambulatory Orders: Hepatic Panel (Routine) Timeframe: [id number] Location: Determined by Patient Ordered By: Lori Kelly Provider Instructions: Hospital follow-up with Dr.Anthony Mack On Sunday03/31/19 @ 10 : 45 am Gastroenterology follow-up On 04/10/19 @ 9: 45 with Kim Camargo PAMyriamC Do not take aspirin-allergic reaction Do not take lisinopril-allergic reaction Do not take hydrochlorothiazide-Possible Allergic reaction New medication: 1.-Norvasc: 2.5 mg by mouth daily-For high blood pressure 2.Cetrizine/Zyrtec 10 mg 1 tab daily ( allergic reaction ) 3.Plavix 75 mg take 1 tablet daily(instead of aspirin 81 mg daily) Take after a full meal 4.Zantac 1 tablet twice daily-for acid reflux 5.Use EpiPen as indicated with any evidence of allergic reaction/ 6.Take Benadryl as needed for itching/hives secondary to allergic reaction 7 .Complete Medrol Dosepak/steroid taper as directed-take with food Do not take pravastatin-liver function abnormalities Liver function test on 03/31/2019/Sunday- Discuss with Dr. 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 Urrutia , please call office to schedule an appointment in next 2-3 weeks Prescriptions: New cetirizine 10 mg Tablet 10 mg PO QAM 30 Days Qty: 30 RF: 0 amlodipine [Norvasc] 2.5 mg tablet 2.5 mg PO DAILY Qty: 30 RF: 0 clopidogrel [Plavix] 75 mg tablet 75 mg PO DAILY Qty: 30 RF: 3 ranitidine HCl [Zantac] 150 mg tablet 150 mg PO BID 30 Days Qty: 60 RF: 0 diphenhydramine HCl [Benadryl] 25 mg capsule 25 mg PO Q8H PRN (Reason: itching) Qty: 90 RF: 0 epinephrine [EpiPen] 0.3 mg/0.3 mL auto-injector 0.3 mg IM Q3H PRN (Reason: anaphylaxis) Qty: 1 RF: 3 methylprednisolone [Medrol (Nabil)] 4 mg tablets,dose pack 4 mg PO UD Qty: 21 RF: 0 Continued calcium carbonate [Tums] 200 mg calcium (500 mg) Tablet,Chewable 200 mg PO TID PRN (Reason: Indigestion) RF: 0 metoprolol succinate 25 mg Tablet Extended Release 24 Hr 12.5 mg PO QPM RF: 0 garlic 400 mg Tablet 400 mg PO QPM RF: 0 coenzyme Q10 [CoQ-10] 100 mg Capsule 100 mg PO QAM RF: 0 diclofenac sodium 1 % Gel 4 g TOPICAL QID PRN (Reason: KNEE PAIN) RF: 0 omega 2-yne-eqe-fish oil [Fish Oil] 1,000 mg (120 mg-180 mg) Capsule 1 cap PO QAM RF: 0 Christy-C with Bioflavonoids 1,000-200 mg Tablet 1 tab PO BID RF: 0 Ocuvite Eye Health 50 mg-15 unit- 4.5 mg-2.5 mg Tablet,Chewable 1 tab PO DAILY RF: 0 Discontinued hydrochlorothiazide 50 mg Tablet 50 mg PO QPM RF: 0 aspirin [Aspir-81] 81 mg Tablet,Delayed Release (Dr/Ec) 81 mg PO QAM RF: 0 lisinopril 5 mg Tablet 5 mg PO QPM RF: 0 pravastatin 10 mg tablet 10 mg PO QPM RF: 0 Stand-Alone Forms: [facility] Discharge Orders: Discharge Order (Routine); Ordered 03/26/19 Ordered By: Lori Milan Admission Data Admit Date/Time: 03/25/19 03:58 Attending Provider: Lori Milan Admit Provider: Pako Hunter Primary Care Provider: Mercedes Kilgore Other Providers: Pako Hunter ; Carlin Gates ; Celsa Riley ; Olesya Henderson ; Ranjit Burk ; Tiffany Melgoza ; Ulysses Mclaughlin ; Erin Vicente ; Shukri Garcia ; Lopez Ellis ; Shanthi Whipple ; Kitty Stone ; Kim Austin ; Racquel Abad ; Jennifer Weston ; Umair Garcia Service: Telemetry Medical Other Interventions: Discharge Summary Assessment (RN) Last Done: 03/26/19 15:16 DC Date/Time DO NOT enter until pt leaves facility: 03/26/19 15:43
[2019-03-27] MEDS ORDERED: PANTOprazole 40 MG TAB PO SCH (09:00)
--- NOTE | 2019-04-02 14:05 | Coding Query ---
A supporting diagnosis is required for the test/procedure performed on this patient in order for us to be reimbursed by the patient's insurance. Please provide a supporting diagnosis for the following test/procedure listed below next to the test name along with your signature. *If there is no additional diagnosis for this patient that would support the following test/procedure please document that below next to the test/procedure. Test(s)/Procedure(s) that require a supporting diagnosis: HBA1C DIAGNOSIS: hyperglyecmia Provider Signature: JNO Date: 04/03/19 Thank you Rafia Murrell Health Information Management Once completed, please kindly fax back to [phone] For questions please call [phone] EDA
== END 2019-03-26 15:43 | disposition home or self-care (01) ==
LOC: 2N 00:23 → ED 00:23 → SUATTDRO 03:58 → 2N 04:39

== ENCOUNTER 2019-09-22 10:37 | Observation (INO) ==
--- NOTE | 2019-08-07 11:01 | Anesthesiology Consultation ---
Date of Service August 07, 2019 Assessment & Plan Chart Review Chart Review: Acceptable Risk for Surgery and Patient NOT seen in Pre Admission Testing History Surgery Operation Date: 09/01/19 09:45 Proposed Procedures p Laparoscopic Cholecystectomy, Possible Open Or Cholangiogram - Chet Lovell MD Height/Weight Height: 5 ft 9 in Weight: 84.368 kg Allergies Allergy/AdvReac Type Severity Reaction Status Date / Time aspirin Allergy Severe Anaphylaxis Verified 08/06/19 14:11 lisinopril Allergy Severe Difficulty Verified 08/06/19 14:11 Swallowing amlodipine [From Norvasc] Allergy Intermediate LEG Verified 08/06/19 14:11 SWELLING hydrochlorothiazide Allergy Intermediate Hives Verified 08/06/19 14:11 Znztyeg-Rcd-Ler Reductase Allergy Intermediate EFFECTED Verified 08/06/19 14:11 Inhibitor LIVER ENZYMES Medications Home Medications Medication Instructions Recorded Confirmed Last Taken coenzyme Q10 [CoQ-10] 100 mg PO QAM 01/21/19 08/06/19 03/24/19 diclofenac sodium 4 g TOPICAL QID PRN 01/21/19 08/06/19 01/21/19 garlic 400 mg PO QPM 01/21/19 08/06/19 03/24/19 metoprolol succinate 25 mg PO QPM 01/21/19 08/06/19 03/24/19 omega 2-bnw-qcu-fish oil [Fish Oil] 1 cap PO QAM 01/21/19 08/06/19 03/24/19 diphenhydramine HCl [Benadryl] 25 mg PO Q8H PRN #90 cap 03/26/19 08/06/19 Unknown epinephrine [EpiPen] 0.3 mg IM Q3H PRN #1 ea 03/26/19 08/06/19 Unknown aluminum hydrox-magnesium carb 30 ml PO PCHS PRN 06/26/19 08/06/19 Unknown [Gaviscon] calcium carbonate [Tums] 200 mg PO BID PRN 06/26/19 08/06/19 Unknown cetirizine [Zyrtec] 10 mg PO HS 06/26/19 08/06/19 Unknown cholecalciferol (vitamin D3) 1,000 unit PO QAM 06/26/19 08/06/19 Unknown [Vitamin D3] furosemide 10 mg PO Q OTHER DAY 06/26/19 08/06/19 Unknown lactobacillus combination no.4 3,000 mmu cells PO QAM 06/26/19 08/06/19 Unknown [Probiotic] multivitamin 1 tab PO QDL 06/26/19 08/06/19 Unknown omeprazole 20 mg PO QAM 06/26/19 08/06/19 Unknown ascorbate calcium-bioflavonoid 1 tab PO QAM 08/06/19 08/06/19 Unknown [Christy-C with Bioflavonoids] clopidogrel [Plavix] 75 mg PO QAM 08/06/19 08/06/19 Unknown Past Medical History Medical History Cardiac murmur GERD (gastroesophageal reflux disease) Hx of sepsis HOSPITALIZED 03/2019 "CAUSED POSSIBLY BY LISINOPRIL/HCTZ AND DAILY ASA" Hyperlipidemia Hypertension Migraine Osteoarthritis PVD (peripheral vascular disease) Transient ischemic attack (TIA) "YEARS AGO" NO RECENT EPISODES Past Family History Family History Other Family history non-contributory Past Surgical History Surgical History History of anesthesia reaction SLOW TO WAKE UP History of carotid endarterectomy RT 2014 History of cataract surgery RT/LEFT History of colonoscopy History of esophagogastroduodenoscopy (EGD) History of tooth extraction Social History Smoking Status: Never smoker Do You Dip or Chew Tobacco: No Hx Alcohol Use: No Hx Substance Use: No substance use type: does not use Testing Electrocardiogram Date: 06/12/19 Findings: + NSR @ (71 bpm) Stress Test Date: 06/27/19 Type: DSE Findings: + WNL Resting EF: 55-60% Resting LV Function: dysfunctional (disstolic grade 1 dysfunction) Resting RWMA: + none Valvular Disease: (mild)
[~2019-09-22 10:37] MED LIST changes: -500ML BSS 0.3ML EPI 1:1000PF IRRIG ONE; -ACETAMINOPHEN 325 MG TAB PO PRN; -AMVISC PLUS 0.8ML SYRINGE INT OCU ONE; -ASPI81TA28 PO; -ATROPINE SULFATE 0.1 MG/ML 5ML SYR IV PRN; -AcetaZOLAMIDE 250 MG TAB ONE; -AcetaZOLAMIDE 250 MG TAB PO SCH; -BETAXOLOL HCL 0.25% OP SUSP PER DROP CHARGE OPR SCH; -BIOF500T PO; -BRIMONIDINE TART 0.2% OP SOLN PER DROP CHARGE ONE; -BSS FLUSH ONE; +CEFAZOLIN 2000MG 2,000 MG/15 ML SYR IV SCH; -DICL-201 PO; -ENDOCOAT 0.85ML SYRINGE INT OCU ONE; -EpHEDrine SULFATE INJ 50 MG/ML AMP IV PRN; -EpINEphrine INJ 1MG/ML AMP 1 MG/ML AMP ONE; -FLUT0.15; -GARL400T5 PO; -GLUC1CAP35 PO; -HYDR50TA3 PO; -LACTATED RINGER'S 1000ML 500 ML IV SCH; -LIDOCAINE 4% OP SOLN DROP CHARGE ONE; -LIDOCAINE 4% OP SOLN DROP CHARGE OPR SCH; -LIDOCAINE HCL 1% MPF 2 ML VIAL ONE; -LISI-729 PO; +LR 15ML/HR IV SCH; -METO25TA3 PO; -MIDAZOLAM HCL 1 MG/ML 2ML VIAL ONE; -MIX: 4ML BSS 1ML EPI 1:1000 PF INSTIL ONE; -MOXIFLOXACIN OPH SOLN PER DROP CHARGE ONE; -MULT-190 PO; -MULT-506 PO; -OCUCOAT 1 ML SOLN IO ONE; -POVIDONE-IODINE OP SOLN 30 ML BTL ONE; -PROPARACAINE 0.5% OP SOLN PER DROP CHARGE OPR SCH; -TOBRAMYCIN/DEXAMETHASONE OPH OINT PER APPLN CHARGE ONE; -UBIQ1CAP PO
[2019-09-22] MEDS ORDERED: MEPERIDINE HCL 25 MG/ML CARP IV PRN (11:15)
[2019-09-22] MEDS ORDERED: LABETALOL HCL IV 5 MG/ML 20ML IV PRN (11:15)
[2019-09-22] MEDS ORDERED: ATROPINE SULFATE 0.1 MG/ML 10ML SYR IV PRN (11:15)
[2019-09-22] MEDS ORDERED: PHENYLEPHRINE 100MCG/ML 5ML SYR IV PRN (11:15)
[2019-09-22] MEDS ORDERED: ONDANSETRON INJ 2 MG/ML 2 ML VIAL IV PRN ×3 (11:15→19:39)
[2019-09-22] MEDS ORDERED: ePHEDrine sulfate 50 MG/ML AMP IV PRN (11:15)
[2019-09-22] MEDS ORDERED: CEFAZOLIN 2000MG 2,000 MG/15 ML SYR IV ONE (13:09)
--- NOTE | 2019-09-22 13:09 | History & Physical Bridge Note ---
Date of Service September 22, 2019 History & Physical Bridge Note I have examined the patient, reviewed the History & Physical and in the interval since the performance of the History & Physical I have noted the following changes of clinical significance: no changes noted
[2019-09-22] MEDS ORDERED: LIDOCAINE HCL 1% 20 ML VIAL ONE (13:16)
[2019-09-22] MEDS ORDERED: BACITRACIN OINT 15 GM TUBE ONE (13:16)
[2019-09-22] MEDS ORDERED: BUPIVACAINE 0.5 % 5 MG/1 ML MPF 30ML VIAL ONE (13:16)
[2019-09-22] MEDS ORDERED: CONRAY 60% 50 ML VIAL ONE (13:17)
[2019-09-22] MEDS ORDERED: fentaNYL citrate 100 MCG/2 ML VIAL ONE ×2 (13:19→14:01)
[2019-09-22] MEDS ORDERED: PROPOFOL IV EMULSION 10 MG/ML 20 ML VIAL IV ONE (13:53)
[2019-09-22] MEDS ORDERED: ROCURONIUM BROMIDE 10 MG/ML 5 ML VIAL ONE (13:53)
[2019-09-22] MEDS ORDERED: DEXAMETHASONE SOD INJ 4 MG/ML VIAL ONE (13:53)
[2019-09-22] MEDS ORDERED: LIDOCAINE HCL 2% 2 ML VIAL/AMP(20MG/ML) INFIL ONE (13:53)
[2019-09-22] MEDS ORDERED: ONDANSETRON INJ 2 MG/ML 2 ML VIAL ONE (13:53)
[2019-09-22] MEDS ORDERED: GLYCOPYRROLATE 0.2 MG/ML VIAL ONE (14:22)
[2019-09-22] MEDS ORDERED: NEOSTIGMINE METHYLSULFATE 5 MG/5 ML SYR ONE (14:22)
--- NOTE | 2019-09-22 14:53 | Post Operative Brief Note ---
Immediate Post Op Note v1 Date of Surgery September 22, 2019 Pre & Post Diagnosis Operation Date: 09/22/19 11:55 Pre-Op Diagnosis: Chronic Cholecystitis, cholelithiasis Post-Op Diagnosis: Chronic Cholecystitis, Cholelithiasis I identified the patient and participated in the time-out.: Yes Procedure Operation Date: 09/22/19 11:55 Actual Procedures p Laparoscopic Cholecystectomy(Not Applicable) - Chet Lovell MD Surgeon Chet Lovell MD Sales Record Clerk surgical elastic knitter hand frame Estimated Blood Loss 10 Findings Consistent with Post-Op Diagnosis Fluids 800ml Specimens gallbladder Anesthesia Type General Complications none Disposition Accompanied Patient To Recovery: Yes Disposition: Recovery Room Overlapping Procedure I was immediately available: during the entire case.
[2019-09-22] MEDS ORDERED: MoRPHine SULFATE 2 MG/ML CARP IV PRN (15:03)
[2019-09-22] MEDS ORDERED: OXYCODONE/ACETAMINOPHEN 5mg/325mg TAB PO PRN ×2 (15:03→19:56)
[2019-09-22] MEDS ORDERED: KETOROLAC 30 MG/ML VIAL ONE (15:14)
[2019-09-22] MEDS: fentaNYL citrate 100 MCG/2 ML VIAL IV PRN ×4 (15:15→15:30)
[2019-09-22] MEDS ORDERED: SODIUM CHLORIDE 0.9% 1000ML 1,000 ML IV SCH (15:15)
[2019-09-22] MEDS: HYDROmorphone INJ 1 MG/ML SYRINGE IV PRN ×6 (15:35→16:15)
[2019-09-22] MEDS ORDERED: ACETAMINOPHEN 1000 MG/100 ML IV IV ONE (15:52)
[2019-09-22] MEDS ORDERED: ACETAMINOPHEN 1,000 MG/100 ML VIAL IV STA (15:52)
--- NOTE | 2019-09-22 17:10 | Anesthesiology Progress Note ---
Date of Service September 22, 2019 Anesthesia Post Procedure Vital Signs Vital Signs: Temp Pulse Pulse Resp BP BP Pulse Ox 09/22/19 16:35 36.6 C 62 16 142/78 H 94 09/22/19 16:25 36.6 C 64 16 145/80 H 94 09/22/19 16:15 61 16 140/78 94 09/22/19 16:05 61 16 137/76 94 09/22/19 15:55 64 16 165/86 H 97 09/22/19 15:45 68 16 169/82 H 95 09/22/19 15:35 77 16 148/80 H 97 09/22/19 15:25 87 16 185/87 H 97 09/22/19 15:15 89 16 164/81 H 97 09/22/19 15:06 37 C 93 H 16 135/79 94 09/22/19 11:10 37.1 C 88 20 152/72 H 97 Transfer of Care Handoff Completed per policy Notes Mental Status: alert / awake / arousable Patient Amnestic to Procedure: Yes Nausea / Vomiting: adequately controlled Pain: adequately controlled Airway Patency, RR, SpO2: stable & adequate BP & HR: stable & adequate Hydration State: stable & adequate Anesthetic Complications: no major complications apparent
[2019-09-22] MEDS ORDERED: SUGAMMADEX SODIUM 200 MG/2 ML VIAL IV ONE (18:42)
--- NOTE | 2019-09-22 19:01 | Communication Note ---
Date of Service: September 22, 2019 Patient very slow to wake up in secondary recovery. She does not have pinpoint pupils or any focal findings on exam. She does feel weak and even having some difficulty with swallowing. She is having some trouble completely coming off low flow nasal cannula as well. She did complain subjectively of generalized weakness. Pain is at a 4-5. According to family, she is typically slow to wake up from anesthetic. As I was not attending for the case, I did a thorough review of the anesthetic record, which did not reveal any extraordinary events. She did have a one time dose of rocuronium at about 130 and was fully reversed on 4 twitches at the end of the case. To rule out residual neuromuscular blockade, I did dose the patient with 200mg sugammadex, but this did not make any improvement. Pending an evaluation by the surgeon, we will likely have to bring the patient in overnight for a 23hr observation for management of weakness, mild hypoxia, and dysphagia.
[2019-09-22] MEDS ORDERED: CALCIUM CARBONATE 500 MG CHEWABLE TAB PO PRN (19:56)
[2019-09-22] MEDS ORDERED: DICLOFENAC SOD 1% GEL 100 GM TUBE EXT PRN (19:56)
[2019-09-22] MEDS ORDERED: HYDROmorphone INJ 0.5 MG/0.5 ML SYR IV PRN (19:56)
--- NOTE | 2019-09-22 20:15 | Surgery Consultation ---
Date of Consultation September 22, 2019 Assessment & Plan (1) Nausea after anesthesia: pt is a 73 year-old female who is post-op laparoscopic cholecystectomy, POD 5 hours, pt develops nausea, and sleepy after anesthesia, IMP: nausea, after anesthesia, S/P laparoscopic cholecystectomy, Plan, pt and her family members request to admit to hospital, IV fluid, clear diet, control pain, nausea,repeat labs in am, will F/U History of Present Illness Attending Physician: Chet Lovell MD CC: nausea, sleepy, HPI: pt is a 73 year-old female who is post-op laparoscopic cholecystectomy, POD 5 hours, pt has received iv dilaudid, morphine, po percocet, recheck pt pt and her daughter, 2 sons said, pt is still nausea, and sleepy, less incision pain, they said, pt is always like this after anesthesia, pt and her family members request to stay hospital overnight, pt denies SOB, No chest pain, no fever, Allergies Allergy/AdvReac Type Severity Reaction Status Date / Time aspirin Allergy Severe Anaphylaxis Verified 09/22/19 11:01 lisinopril Allergy Severe Difficulty Verified 09/22/19 11:01 Swallowing amlodipine [From Norvasc] Allergy Intermediate LEG Verified 09/22/19 11:01 SWELLING hydrochlorothiazide Allergy Intermediate Hives Verified 09/22/19 11:01 Jvvkqbf-Ero-Nan Reductase Allergy Intermediate EFFECTED Verified 09/22/19 11:01 Inhibitor LIVER ENZYMES Home Medications Home Medications Medication Instructions Recorded Confirmed Type coenzyme Q10 [CoQ-10] 100 mg PO QAM 01/21/19 09/22/19 History diclofenac sodium 4 g TOPICAL QID PRN 01/21/19 09/22/19 History garlic 400 mg PO QPM 01/21/19 09/22/19 History metoprolol succinate 25 mg PO QPM 01/21/19 09/22/19 History omega 4-wtf-tss-fish oil [Fish Oil] 1 cap PO QAM 01/21/19 09/22/19 History diphenhydramine HCl [Benadryl] 25 mg PO Q8H PRN #90 cap 03/26/19 09/22/19 Rx epinephrine [EpiPen] 0.3 mg IM Q3H PRN #1 ea 03/26/19 09/22/19 Rx Gaviscon 30 ml PO PCHS PRN 06/26/19 09/22/19 History Probiotic 3,000 mmu cells PO QAM 06/26/19 09/22/19 History calcium carbonate [Tums] 200 mg PO BID PRN 06/26/19 09/22/19 History cetirizine [Zyrtec] 10 mg PO HS 06/26/19 09/22/19 History cholecalciferol (vitamin D3) 1,000 unit PO QAM 06/26/19 09/22/19 History [Vitamin D3] furosemide 10 mg PO Q OTHER DAY 06/26/19 09/22/19 History multivitamin 1 tab PO QDL 06/26/19 09/22/19 History omeprazole 20 mg PO QAM 06/26/19 09/22/19 History Christy-C with Bioflavonoids 1 tab PO QAM 08/06/19 09/22/19 History clopidogrel [Plavix] 75 mg PO QAM 08/06/19 09/22/19 History oxycodone-acetaminophen [Endocet] 1 tab PO Q6H PRN #20 tab 09/22/19 Rx Patient History Medical History Cardiac murmur GERD (gastroesophageal reflux disease) Hx of sepsis HOSPITALIZED 03/2019 "CAUSED POSSIBLY BY LISINOPRIL/HCTZ AND DAILY ASA" Hyperlipidemia Hypertension Migraine Osteoarthritis PVD (peripheral vascular disease) Transient ischemic attack (TIA) "YEARS AGO" NO RECENT EPISODES Surgical History History of anesthesia reaction SLOW TO WAKE UP History of carotid endarterectomy RT 2013 History of cataract surgery RT/LEFT History of colonoscopy History of esophagogastroduodenoscopy (EGD) History of tooth extraction Family History Other Family history non-contributory Social History Preferred Language: Urugu[place] Communication Ability: Effective File Clerk Data Entry Required: No Beliefs That Will Affect Care: None Current Living Situation: Family Feels Safe at Home: Yes Smoking Status: Never smoker Do You Dip or Chew Tobacco: No ; Second Hand Exposure: No ; Hx Alcohol Use: No Hx Substance Use: No Review of Systems Review of Systems: All systems reviewed & are unremarkable except as noted in HPI & below Cardiovascular: Additional Comments: S/P RCEA, hypotension Gastrointestinal: as per Subjective / HPI and + abdominal pain abnormal LFTs Hematologic / Lymphatic: sepsis Physical Exam Constitutional: WD/WN, vitals as above well developed and well nourished ENMT: external ear and nose normal, oropharynx normal Neck: trachea midline, no thyromegaly scar on right neck, Respiratory: normal respiratory effort, lungs clear to auscultation normal respiratory effort Cardiovascular: RRR, no murmur, no edema Rate/Rhythm: regular rate Gastrointestinal (Abdomen): normal bowel sounds, soft, nontender, no hepatosplenomegaly Percussion/Palpation: abdomen soft slightly tenderness at RUQ, no rebound pain, no distend, BS +, all dressing intact, Musculoskeletal: no cyanosis or clubbing, extremities motor strength 5/5 Skin: no rashes, warm and dry Neurologic: patellar DTR's 2+ bilat, sensation intact Psychiatric: Orientation: alert and oriented x 3 Results & Data Vital Signs (Past 12 Hours) Vital Signs Temp Pulse Pulse Resp BP BP Pulse Ox 09/22/19 18:40 72 72 18 147/69 H 92 09/22/19 17:49 36.4 C L 61 61 18 146/92 H 93 09/22/19 17:20 57 L 18 127/59 L 94 09/22/19 17:15 63 63 18 141/78 H 92 09/22/19 16:35 36.6 C 62 16 142/78 H 94 09/22/19 16:25 36.6 C 64 16 145/80 H 94 09/22/19 16:15 61 16 140/78 94 09/22/19 16:05 61 16 137/76 94 09/22/19 15:55 64 16 165/86 H 97 09/22/19 15:45 68 16 169/82 H 95 09/22/19 15:35 77 16 148/80 H 97 09/22/19 15:25 87 16 185/87 H 97 09/22/19 15:15 89 16 164/81 H 97 09/22/19 15:06 37 C 93 H 16 135/79 94 09/22/19 11:10 37.1 C 88 20 152/72 H 97
[2019-09-22] MEDS ORDERED: EPINEPHrine INJ 1 MG/ML AMP IM PRN (20:21)
[2019-09-22] MEDS ORDERED: ALUM HYDROX/MAG TRISILICATE CHEW PO PRN (20:22)
[2019-09-22] MEDS ORDERED: CETIRIZINE HCL 10 MG TABLET PO SCH (21:00)
[2019-09-22] MEDS ORDERED: NON-FORMULARY MEDICATION (Garlic 400 MG) PO SCH (21:00)
[2019-09-22] MEDS ORDERED: METOPROLOL SUCC 25MG EXT REL TAB PO SCH (21:00)
[2019-09-22] MEDS: CEFAZOLIN 1000MG 1,000 MG/7.5 ML SYR IV SCH (21:14)
[2019-09-22] MEDS ORDERED: ACETAMINOPHEN 325 MG TAB PO PRN (22:15)
--- NOTE | 2019-09-22 22:19 | Surgery Progress Note ---
Date of Service recheck pt, pt feels better, less nausea, no vomiting, good control incision pain, September 22, 2019 Assessment & Plan (1) Nausea after anesthesia: pt is a 73 year-old female who is post-op laparoscopic cholecystectomy, POD 5 hours, pt develops nausea, and sleepy after anesthesia, IMP: nausea, after anesthesia, S/P laparoscopic cholecystectomy, Plan, pt and her family members request to admit to hospital, IV fluid, clear diet, control pain, nausea,repeat labs in am, will F/U 09/22/2019 10:17PM doing better, pt ask tylenol for pain, tylenol 650 mg po q6h prn for pain, will F/U Review of Systems Cardiovascular: Additional Comments: S/P RCEA, hypotension Gastrointestinal: as per Subjective / HPI and + abdominal pain abnormal LFTs Hematologic / Lymphatic: sepsis Physical Exam Constitutional: WD/WN, vitals as above well developed and well nourished ENMT: external ear and nose normal, oropharynx normal Neck: trachea midline, no thyromegaly Respiratory: normal respiratory effort, lungs clear to auscultation normal respiratory effort Cardiovascular: RRR, no murmur, no edema Rate/Rhythm: regular rate Gastrointestinal (Abdomen): normal bowel sounds, soft, nontender, no hepatosplenomegaly Percussion/Palpation: abdomen soft Musculoskeletal: no cyanosis or clubbing, extremities motor strength 5/5 Skin: no rashes, warm and dry Neurologic: patellar DTR's 2+ bilat, sensation intact Psychiatric: Orientation: alert and oriented x 3 Results & Data Vital Signs (Past 12 Hours) Vital Signs Temp Pulse Pulse Pulse Resp BP BP 09/22/19 21:42 36.6 C 94 H 18 147/82 H 09/22/19 21:01 36.5 C 87 18 165/89 H 09/22/19 20:20 36.5 C 78 19 160/81 H 09/22/19 18:40 72 72 18 147/69 H 09/22/19 17:49 36.4 C L 61 61 18 146/92 H 09/22/19 17:20 57 L 18 127/59 L 09/22/19 17:15 63 63 18 141/78 H 09/22/19 16:35 36.6 C 62 16 142/78 H 09/22/19 16:25 36.6 C 64 16 145/80 H 09/22/19 16:15 61 16 140/78 09/22/19 16:05 61 16 137/76 09/22/19 15:55 64 16 165/86 H 09/22/19 15:45 68 16 169/82 H 09/22/19 15:35 77 16 148/80 H 09/22/19 15:25 87 16 185/87 H 09/22/19 15:15 89 16 164/81 H 09/22/19 15:06 37 C 93 H 16 135/79 09/22/19 11:10 37.1 C 88 20 152/72 H Pulse Ox 09/22/19 21:42 95 09/22/19 21:01 96 09/22/19 20:20 95 09/22/19 18:40 92 09/22/19 17:49 93 09/22/19 17:20 94 09/22/19 17:15 92 09/22/19 16:35 94 09/22/19 16:25 94 09/22/19 16:15 94 09/22/19 16:05 94 09/22/19 15:55 97 09/22/19 15:45 95 09/22/19 15:35 97 09/22/19 15:25 97 09/22/19 15:15 97 09/22/19 15:06 94 09/22/19 11:10 97
[2019-09-22] MEDS: LACTATED RINGER'S 1,000 ML IV SCH (23:00)
--- NOTE | 2019-09-23 02:10 | Operative Report ---
DATE OF OPERATION: 09/22/2019 PREOPERATIVE DIAGNOSES: Chronic cholecystitis, cholelithiasis. POSTOPERATIVE DIAGNOSES: Chronic cholecystitis, cholelithiasis. PROCEDURE: Laparoscopic cholecystectomy. SURGEON: Chet Lovell MD. ANESTHESIA: General. ESTIMATED BLOOD LOSS: About 10 mL. FINDINGS: Chronic cholecystitis with cholelithiasis. COMPLICATIONS: None. INDICATIONS FOR THE PROCEDURE: This is a 73-year-old female who presented with chronic cholecystitis with cholelithiasis. The patient will be required to do laparoscopic cholecystectomy, possible open, possible cholangiogram. I did talk to the patient about the benefit, the risk, alternate procedure. I indicated the risks may include but not limited such as bleeding, infection, injury to common bile duct, bile leak, myocardial infarction, stroke, even . The patient understands and she signed informed consent and I answered all questions. DETAILS OF PROCEDURE: We brought in the patient to the OR, put the patient in the supine position. The patient received SCD on bilateral legs to prevent DVT. Also, patient received 2 gram Ancef IV for prophylactic antibiotic. The patient received general anesthesia without difficulties. Abdomen was prepped and draped in routine sterile fashion. After timeout, I injected local anesthesia by using 1% lidocaine mixed with 0.5% Marcaine just above the umbilicus and then I made a small incision just above umbilicus, opened fascia, opened peritoneum under direct vision, put a Sridhar trocar in, connected to CO2 to create pneumoperitoneum. Flow rate at 6 liter per minute. Pressure not more than 14 mmHg. Once we got a nice pneumoperitoneum, we put the camera in, looked around the abdomen, shows a normal finding on the liver, small bowel, large bowel; however, the gallbladder shows chronic cholecystitis, gallbladder wall thickening, edema, confirmed diagnosis of chronic cholecystitis. Then, we put another two 5 mm trocar on the right upper quadrant, one is 11 trocar on the epigastric area. Once all trocars in, we put a grasper and hold the gallbladder; however, the gallbladder had significant distention, we used a large needle to decompress the gallbladder first. Then, we used the grasper to hold the base of gallbladder, put in the direction to the diaphragm, another grasper to hold the pouch of gallbladder, put a lateral to explore triangle of Calot. The cystic duct was identified and mobilized. Then I put two 10 mm metal clips on the proximal cystic duct, one on the distal cystic duct. I then used scissor for transection of the cystic duct. Rechecked and no bile leak, no active bleeding. Then the cystic artery was identified and mobilized. I put two 10 mm metal clips on the proximal cystic artery, 1 on the distal cystic artery, then used the scissor for transection of cystic artery. Rechecked, no active bleeding. Then we used the Bovie to take down gallbladder from the liver bed. Rechecked, no active bleeding, no bile leak from the liver bed. Then we removed gallbladder through the catch bag then we reinserted Sridhar trocar in, connected to CO2 to create pneumoperitoneum, again looked around the abdomen, no active bleeding, no bile leak from the liver bed. Then we removed all trocar under direct vision. No active bleeding from the trocar sites. Pneumoperitoneum was released. Then I closed the umbilical incision, fascial layer by using #1 Vicryl [id number] x2, closed subcutaneous layer by using 2-0 Vicryl interrupted layer, closed skin by using 4-0 Vicryl continuous running, closed the epigastric area incision, fascial layer by using #1 Vicryl [id number] x2, closed subcutaneous layer by using 2-0 Vicryl interrupted, closed skin by using 4-0 Vicryl interruptedly, closed another two 5 mm trocar site skin only by using 4-0 Vicryl. Then we put the dressing on. The patient tolerated the procedure well. All instrument, needle and sponge count were correct x2 at the end of case. The patient transferred to recovery room in stable condition. The specimen was sent to pathology. After procedure, I did talk to the patient and family member about the OR finding and procedure we did and the postop care instruction, they understand. I attest to the content of the Intraoperative Record and any orders documented therein. Any exception s are noted below.
[2019-09-23] MEDS: CEFAZOLIN 1000MG 1,000 MG/7.5 ML SYR IV SCH ×2 (04:18→12:58)
[2019-09-23 05:24] LABS: Hematocrit (blood only) 39.4 % (37-47); Hemoglobin 12.9 g/dL (12.0-16.0); Immature Granulocytes # (auto) 0.07 K/uL (0.00-0.02); Immature Granulocytes % (auto) 0.4 %; Lymphocytes # (auto) 1.17 K/uL (1.2-3.4); Lymphocytes % (auto) 6.3 %; Mean Corpuscular Hemoglobin 29.7 pg (25-34); Mean Corpuscular Hgb Conc 32.7 g/dL (32-36); Mean Corpuscular Volume 90.8 fL (80-100); Mean Platelet Volume 9.8 fL (7.4-10.4); Monocytes # (auto) 1.52 K/uL (0.11-0.59); Monocytes % (auto) 8.2 %; Neutrophils # (auto) 15.72 K/uL (1.4-6.5); Neutrophils % (auto) 85.1 %; Platelet Count 204 K/uL (130-400); RDW Coefficient of Variation 13.2 % (11.5-14.5); RDW Standard Deviation 43.5 fL (36.4-46.3); Red Blood Count 4.34 M/uL (4.2-5.4); White Blood Count 18.48 K/uL (4.8-10.8)
[2019-09-23 05:50] LABS: Albumin Level 2.8 gm/dl (3.4-5.0); Calcium 8.8 mg/dl (8.5-10.1); Creatinine Clr Calc Pharmacy 65.6 ml/min; Est GFR (African American) 73.5; Est GFR (Non-African American) 63.4; Potassium 3.9 mmol/L (3.5-5.1)
[2019-09-23 05:55] LABS: Albumin Globulin Ratio 0.8 (0.9-2); Bilirubin,Total 0.8 mg/dl (0.2-1); Globulin 3.5 gm/dl (2.5-4.0); Total Protein 6.3 gm/dl (6.4-8.2)
[2019-09-23] MEDS: LACTATED RINGER'S 1,000 ML IV SCH (07:28)
[2019-09-23] MEDS ORDERED: CLOPIDOGREL BISULFATE 75 MG TAB PO SCH (08:00)
--- NOTE | 2019-09-23 08:15 | Anesthesiology Progress Note ---
Date of Service September 23, 2019 Anesthesia Post Procedure Vital Signs Vital Signs: Temp Pulse Pulse Pulse Resp BP BP 09/23/19 07:55 36.8 C 71 16 131/68 09/23/19 02:56 36.5 C 91 H 16 136/73 09/22/19 22:50 36.7 C 93 H 17 157/81 H 09/22/19 21:42 36.6 C 94 H 18 147/82 H 09/22/19 21:01 36.5 C 87 18 165/89 H 09/22/19 20:20 36.5 C 78 19 160/81 H 09/22/19 18:40 72 72 18 147/69 H 09/22/19 17:49 36.4 C L 61 61 18 146/92 H 09/22/19 17:20 57 L 18 127/59 L 09/22/19 17:15 63 63 18 141/78 H 09/22/19 16:35 36.6 C 62 16 142/78 H 09/22/19 16:25 36.6 C 64 16 145/80 H 09/22/19 16:15 61 16 140/78 09/22/19 16:05 61 16 137/76 09/22/19 15:55 64 16 165/86 H 09/22/19 15:45 68 16 169/82 H 09/22/19 15:35 77 16 148/80 H 09/22/19 15:25 87 16 185/87 H 09/22/19 15:15 89 16 164/81 H 09/22/19 15:06 37 C 93 H 16 135/79 09/22/19 11:10 37.1 C 88 20 152/72 H Pulse Ox 09/23/19 07:55 95 09/23/19 02:56 94 09/22/19 22:50 97 09/22/19 21:42 95 09/22/19 21:01 96 09/22/19 20:20 95 09/22/19 18:40 92 09/22/19 17:49 93 09/22/19 17:20 94 09/22/19 17:15 92 09/22/19 16:35 94 09/22/19 16:25 94 09/22/19 16:15 94 09/22/19 16:05 94 09/22/19 15:55 97 09/22/19 15:45 95 02/03/20 15:35 97 09/22/19 15:25 97 09/22/19 15:15 97 09/22/19 15:06 94 09/22/19 11:10 97 Pain Intensity Abdomen: Pain Intensity: 6 Notes Mental Status: alert / awake / arousable and participated in evaluation Patient Amnestic to Procedure: Yes Nausea / Vomiting: see Notes below Pain: adequately controlled Airway Patency, RR, SpO2: stable & adequate BP & HR: stable & adequate Hydration State: stable & adequate Anesthetic Complications: no major complications apparent and Pt Satisfied with anesthetic care
[2019-09-23] MEDS: ACETAMINOPHEN W/CODEINE #3 1 TAB PO PRN ×2 (08:40→08:49)
[2019-09-23] MEDS ORDERED: NON-FORMULARY MEDICATION (Coenzyme Q10 [Coq-10] 100 MG) PO SCH (09:00)
[2019-09-23] MEDS ORDERED: LACTOBACILLUS ACIDOPHILUS (FLORANEX) TAB PO SCH (09:00)
[2019-09-23] MEDS ORDERED: CHOLECALCIFEROL 1,000 UNITS 25 MCG TAB PO SCH (09:00)
[2019-09-23] MEDS ORDERED: OMEGA-3 (PURIFIED FISH OIL) 1 GM CAP PO SCH (09:00)
[2019-09-23] MEDS ORDERED: PANTOprazole 40 MG TAB PO SCH (09:00)
[2019-09-23] MEDS ORDERED: FUROSEMIDE 20 MG TAB PO SCH (09:00)
[2019-09-23] MEDS ORDERED: NON-FORMULARY MEDICATION (Ascorbate Calcium-Bioflavonoid [Ester-C With Bioflavonoids] 1 TA PO SCH (09:00)
[2019-09-23] MEDS ORDERED: MULTIVITAMIN TAB PO SCH (11:30)
--- NOTE | 2019-09-23 13:44 | Surgery Progress Note ---
Date of Service September 23, 2019 Assessment & Plan (1) Nausea after anesthesia: POD # 1 s/p outpatient laparoscopic cholecystectomy -developed post proceudre nausea and drowsiness - Afebrile vitals stable - leukocytosis of 18K (likely postop) - T. bili and LFTS wnl - pain controlled, nausea resolved - some itching no hives on exam Plan: May have some adverse reaction to Tylenol with Codeine. Will send extra strength Tylenol 650 mg every 6hours as needed for pain to pharmacy. Patient does not want to take a narcotic. Okay for discharge if vitals stable in an hour and no signs of severe allergic reaction discharge instructions reviewed f/u surgery office as scheduled Dr. Lovell saw patient earlier this morning and agrees with above. Subjective feeling well nausea has resolved pain at incisions, controlled with the Tylenol/Codeine no n/v tolerating diet feeling itchy and face seems a little swollen this afternoon, just received Benadryl Physical Exam Constitutional: WD/WN, vitals as above no acute distress and not ill appearing Respiratory: normal respiratory effort; no respiratory distress Gastrointestinal (Abdomen): Inspection/Auscultation: abdomen normal to inspection; abdomen not distended Percussion/Palpation: + abdomen tender (at incisions only) and abdomen soft; no guarding and abdomen not rigid Skin: no rashes, warm and dry + incision (Covered with dressing, spotting present midline dressing, dry) Psychiatric: A+Ox3, euthymic affect Results & Data Vital Signs (Past 12 Hours) Vital Signs Temp Pulse Resp BP Pulse Ox 09/23/19 12:15 37.1 C 67 16 125/69 96 09/23/19 10:00 37.1 C 09/23/19 07:55 36.8 C 71 16 131/68 95 09/23/19 02:56 36.5 C 91 H 16 136/73 94 Laboratory Results 09/23/19 09/23/19 Range/Units 05:05 05:05 WBC 18.48 H (4.8-10.8) K/uL RBC 4.34 (4.2-5.4) M/uL Hgb 12.9 (12.0-16.0) g/dL Hct 39.4 (37-47) % MCV 90.8 (80-100) fL MCH 29.7 (25-34) pg MCHC 32.7 (32-36) g/dL RDW Std Deviation 43.5 (36.4-46.3) fL RDW Coeff of Nikko 13.2 (11.5-14.5) % Plt Count 204 (130-400) K/uL MPV 9.8 (7.4-10.4) fL Immature Gran % (Auto) 0.4 % Neut % (Auto) 85.1 % Lymph % (Auto) 6.3 % Dickson % (Auto) 8.2 % Eos % (Auto) 0.0 % Baso % (Auto) 0.0 % Immature Gran # (Auto) 0.07 H (0.00-0.02) K/uL Neut # (Auto) 15.72 H (1.4-6.5) K/uL Lymph # (Auto) 1.17 L (1.2-3.4) K/uL Dickson # (Auto) 1.52 H (0.11-0.59) K/uL Eos # (Auto) 0.00 (0-0.5) K/uL Baso # (Auto) 0.00 (0-0.2) K/uL Sodium 137 (136-145) mmol/L Potassium 3.9 (3.5-5.1) mmol/L Chloride 103 (98-107) mmol/L Carbon Dioxide 28 (21-32) mmol/L Anion Gap 6.0 (3-11) BUN 19 H (7-18) mg/dl Creatinine 0.90 (0.6-1.2) mg/dl Est Cr Clr Drug Dosing 65.6 ml/min Est GFR ( Amer) 73.5 Est GFR (Non-Af Amer) 63.4 BUN/Creatinine Ratio 21.0 H (10-20) Glucose 173 H (70-99) mg/dl Calcium 8.8 (8.5-10.1) mg/dl Total Bilirubin 0.8 (0.2-1) mg/dl AST 12 L (15-37) U/L ALT 18 (12-78) U/L Alkaline Phosphatase 78 (45-117) U/L Total Protein 6.3 L (6.4-8.2) gm/dl Albumin 2.8 L (3.4-5.0) gm/dl Globulin 3.5 (2.5-4.0) gm/dl Albumin/Globulin Ratio 0.8 L (0.9-2)
--- NOTE | 2019-09-24 11:59 | Discharge Summary ---
Date of Service September 24, 2019 Admission HPI Per Admitting Provider Tamia presented to [facility] for outpatient cholecystectomy with Dr. Lovell. Principal Diagnosis Chronic cholecystitis Discharge Data Allergies Allergy/AdvReac Type Severity Reaction Status Date / Time aspirin Allergy Severe Anaphylaxis Verified 09/22/19 11:01 lisinopril Allergy Severe Difficulty Verified 09/22/19 11:01 Swallowing amlodipine [From Norvasc] Allergy Intermediate LEG Verified 09/22/19 11:01 SWELLING hydrochlorothiazide Allergy Intermediate Hives Verified 09/22/19 11:01 Mwyoaje-Teo-Bvo Reductase Allergy Intermediate EFFECTED Verified 09/22/19 11:01 Inhibitor LIVER ENZYMES Procedures Performed Operation Date: 09/22/19 11:55 Actual Procedures p Laparoscopic Cholecystectomy(Not Applicable) - Chet Lovell MD Hospital Course (1) Nausea after anesthesia: Patient was taken to operating room for laparoscopic cholecystectomy by Dr. Lovell. Patient found to have evidence of chronic cholecystitis intraoperatively. Patient tolerated procedure well and was transferred to recovery for postop care prior to discharge. Patient was having some weakness and drowsiness post anesthesia and required low flow oxygen. She also had some postop/post anesthesia nausea. Given weakness and needing low flow oxygen patient was kept overnight for 23 hour observation. Patient was evaluated in morning of POD # 1. Vitals stable, afebrile, no longer requiring oxygen via nasal cannula and pain controlled. Diet was advanced as tolerated. She was evaluated after lunch and had some itching and Benadryl given however no signs of severe acute allergic reaction. She was evaluated for another hour and vitals rechecked and stable. She was discharged home on POD # 1 in stable condition. Total Time Total Time Spent Total Time Spent (In Minutes): 30 Total Time Includes: Examination of the Patient, Discharge Planning and Medication Reconciliation Discharge Plan Discharge Items Patient Disposition: Home - Self-Care Reason For Visit: Symptomatic Cholelithiasis Discharge Diagnosis: S/P laparoscopic cholecystectomy Activity: Per Instructions section Sexual Activity: After two weeks Exercise/Sports: Rest today Non-emergency contact: Surgeon Call non-emergency contact if: you have any medication questions, your symptoms worsen, your pain is not controlled, your pain is worsening, your temperature is above 101, your wound has increased redness, your wound has increased drainage and your wound pain has increased Follow-up/Referrals: Newhouser,Mercedes M., DO [Primary Care Provider] - Chet Lovell MD [Physician] - (follow up Dr. Lovell in 1- 2 weeks, Agree-I have documented within the medical record.) Diet: Regular Addtl Attending Provider Instructions: No heavy lifting over 20-25 pounds for 3 to 4 weeks No strenuous activity until cleared by surgeon however walking and light activity is encouraged daily to prevent blood clots from forming in your legs. You may shower in 3 day(s). Sponge bath and wash hair in meantime. No submerging incisions underwater for 2 weeks (no bathing, swimming, or hot tubs) Keep dressings clean and dry until showering. After showering, remove outer dressings. Leave steri strips on incisions for 7 days and then remove. They may fall off on their own that is okay. You will be given a prescription for extra strength Tylenol 650 mg every 6 hours as needed for pain. For constipation take stool softener (such as OTC Colace daily) and drink plenty of water. Follow-up in surgical office in 2 week(s) or as already scheduled. Please call office at [phone] if you have any questions or concerns. Pending Studies at Discharge: Yes Studies:: gallbladder pathology, will be reviewed at follow up visit Stand-Alone Forms: Anesthesia/Sedation, Adult, [facility] Medications and DC Order Prescriptions: New acetaminophen [Tylenol 8 Hour] 650 mg tablet extended release 650 mg PO Q6H PRN (Reason: pain) Qty: 20 RF: 0 Continued metoprolol succinate 25 mg Tablet Extended Release 24 Hr 25 mg PO QPM RF: 0 garlic 400 mg Tablet 400 mg PO QPM RF: 0 coenzyme Q10 [CoQ-10] 100 mg Capsule 100 mg PO QAM RF: 0 diclofenac sodium 1 % Gel 4 g TOPICAL QID PRN (Reason: KNEE PAIN) RF: 0 omega 3-ovq-nvx-fish oil [Fish Oil] 1,000 mg (120 mg-180 mg) Capsule 1 cap PO QAM RF: 0 multivitamin Tablet 1 tab PO QDL RF: 0 Gaviscon 95-358 mg/15 mL Suspension 30 ml PO PCHS PRN (Reason: Indigestion) RF: 0 cetirizine [Zyrtec] 10 mg Tablet 10 mg PO HS RF: 0 calcium carbonate [Tums] 200 mg calcium (500 mg) Tablet,Chewable 200 mg PO BID PRN (Reason: Indigestion) RF: 0 furosemide 20 mg Tablet 10 mg PO Q OTHER DAY RF: 0 cholecalciferol (vitamin D3) [Vitamin D3] 1,000 unit Capsule 1,000 unit PO QAM RF: 0 omeprazole 20 mg Tablet,Delayed Release (Dr/Ec) 20 mg PO QAM RF: 0 Probiotic 3 billion cell Capsule 3,000 mmu cells PO QAM RF: 0 diphenhydramine HCl [Benadryl] 25 mg capsule 25 mg PO Q8H PRN (Reason: itching) Qty: 90 RF: 0 epinephrine [EpiPen] 0.3 mg/0.3 mL auto-injector 0.3 mg IM Q3H PRN (Reason: anaphylaxis) Qty: 1 RF: 3 Christy-C with Bioflavonoids 500-200 mg Tablet 1 tab PO QAM RF: 0 clopidogrel [Plavix] 75 mg tablet 75 mg PO QAM RF: 0 Discharge Orders: Discharge Order (Routine); Ordered 09/22/19 Ordered By: Chet Gilliland/Other Patient Handouts: Surgery Prevent DVT After, ED Diet Low Fat Admission Data Admit Date/Time: 09/22/19 19:39 Attending Provider: Chet Lovell Admit Provider: Chet Lovell Primary Care Provider: Mercedes Kilgore Other Interventions: Discharge Summary Assessment (RN) Last Done: 09/23/19 13:04 DC Date/Time DO NOT enter until pt leaves facility: 09/23/19 15:04
== END 2019-09-23 15:04 | disposition home or self-care (01) ==
LOC: ASU 10:37 → 3E 10:37

== ENCOUNTER 2019-09-27 18:18 | Inpatient (IN) ==
[2019-09-27] MEDS ORDERED: ONDANSETRON INJ 2 MG/ML 2 ML VIAL IV STA (18:52)
[2019-09-27] MEDS ORDERED: SODIUM CHLORIDE 0.9% 1000ML 500 ML IV ONE (18:52)
[2019-09-27] MEDS ORDERED: fentaNYL citrate 100 MCG/2 ML VIAL IV PRN (19:00)
[2019-09-27 19:33] LABS: Basophils # (auto) 0.03 K/uL (0-0.2); Basophils % (auto) 0.2 %; Eosinophils # (auto) 0.38 K/uL (0-0.5); Eosinophils % (auto) 2.4 %; Hematocrit (blood only) 44.5 % (37-47); Hemoglobin 15.2 g/dL (12.0-16.0); Immature Granulocytes # (auto) 0.03 K/uL (0.00-0.02); Immature Granulocytes % (auto) 0.2 %; Lymphocytes # (auto) 1.52 K/uL (1.2-3.4); Lymphocytes % (auto) 9.8 %; Mean Corpuscular Hemoglobin 30.4 pg (25-34); Mean Corpuscular Hgb Conc 34.2 g/dL (32-36); Mean Platelet Volume 9.1 fL (7.4-10.4); Monocytes # (auto) 1.41 K/uL (0.11-0.59); Monocytes % (auto) 9.1 %; Neutrophils # (auto) 12.19 K/uL (1.4-6.5); Neutrophils % (auto) 78.3 %; Platelet Count 295 K/uL (130-400); RDW Coefficient of Variation 13.2 % (11.5-14.5); RDW Standard Deviation 42.9 fL (36.4-46.3); White Blood Count 15.56 K/uL (4.8-10.8)
[2019-09-27 19:49] LABS: Albumin Level 3.6 gm/dl (3.4-5.0); BUN Creatinine Ratio 14.2 (10-20); Est GFR (Non-African American) 63.8; Potassium 3.9 mmol/L (3.5-5.1)
[2019-09-27 19:53] LABS: Albumin Globulin Ratio 0.8 (0.9-2); Bilirubin,Total 0.8 mg/dl (0.2-1); Globulin 4.5 gm/dl (2.5-4.0); Total Protein 8.1 gm/dl (6.4-8.2)
[2019-09-27 20:30] LABS: Appearance Urine Clear (Clear); Bacteria Urine Automated 1+ (Negative); Bilirubin Urine Negative (Negative); Blood Urine Negative (Negative); Cast Urine Automated 0 /lpf (0-5); Color Urine Yellow; Glucose Urine UA Negative (Negative); Ketones Urine Trace (Negative); Leukocyte Esterase Urine Trace (Negative); Nitrite Urine Negative (Negative); Protein Urine Negative (Negative); RBC Urine Automated 0-4 /hpf (0-4); Specific Gravity Urine 1.012 (1.000-1.030); Urobilinogen Urine Negative (Negative)
[2019-09-27] MEDS ORDERED: IOVERSOL 100ml IV PRN (21:51)
--- NOTE | 2019-09-27 22:12 | CT Scan Report ---
CT abd pelvis oral and IV con CLINICAL HISTORY: 74 years-old Female presenting with RLQ abd pain, 5 days post cholecystectomy. TECHNIQUE: Multidetector CT of the abdomen and pelvis was performed after the administration of oral and intravenous contrast. IV contrast: 94 mL of Optiray 320. One or more dose lowering techniques wer e used consistent with the principles of ALARA (as low as reasonably achievable), including automatic exposure control, mA or kV adjustment to individual patient size, and/or use of iterative reconstruc tion. COMPARISON: 07/06/2017. CT DOSE (mGy.cm): The estimated cumulative dose is 664.05 mGy.cm. 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 Plastic common bile duct stent in place. Lung bases: Normal heart size. Coronary artery and aortic valve calcification. No pericardial or pleu ral effusion. Minimal dependent changes likely atelectasis. Liver: Normal morphology. No liver lesion. Patent hepatic vasculature. Biliary: Pneumobilia noted. A plastic common bile duct stent is in place. Gallbladder surgically abse nt. Infiltration of the gallbladder fossa expected in the recent postsurgical setting. No fluid colle ction. Pancreas: Normal. Spleen: Normal. Adrenal glands: Normal. Kidneys and ureters: Numerous small cysts noted. No nephrolithiasis or hydronephrosis. Ureters nondis tended. Extrarenal pelvis on the right. Bladder: Circumferential bladder wall thickening. Pelvic organs: Globular morphology of the uterus as on prior exam consistent with underlying dominant intramural fibroid along the left posterolateral uterine wall. Ovaries normal. Bowel: Dilated nonopacified appendix with a diameter of over 10 mm. Several appendicoliths are noted including at the appendiceal base. Mild periappendiceal fat stranding. Previously this is a very diss imilar appearance of the appendix in comparison to prior. No bowel obstruction. Small sliding type hi atal hernia. Small duodenal diverticulum at the level of the pancreatic head. Peritoneal cavity: No free fluid or intraperitoneal gas. Lymph nodes: Few prominent nodes in the right lower quadrant mesentery, likely reactive. Vasculature: Atherosclerosis of the normal caliber abdominal aorta. IVC patent. Abdominal wall: Infiltration in the periumbilical region likely relates to a recent trocar site. Dhruv tional trocar sites suspected in the right upper quadrant. No associated fluid collection. Musculoskeletal: Several bone islands noted in the pelvis. Degenerative changes of the spine. IMPRESSION: 1. Acute uncomplicated appendicitis with several appendicoliths present including at the appendiceal base. The appendix with a diameter of over 1 cm. Surgical consultation is necessary. 2. Postsurgical changes of cholecystectomy without evidence of complication. 3. Plastic common bile duct stent in place. 4. Fibroid uterus. 5. Bladder wall thickening likely due to underdistention or less likely cystitis. Correlate with uri nalysis. The report will be called/faxed according to standard departmental protocol for a critical finding. ACT 112: Negative or not required by law. Electronically signed by: Michael Zepeda M.D. 09/27/2019 10:11 PM
[2019-09-27] MEDS ORDERED: metroNIDAZOLE 500 MG/100 ML BAG IV STA (22:13)
[2019-09-27] MEDS ORDERED: CIPROFLOXACIN 400 MG/200 ML BAG IV STA (22:13)
--- NOTE | 2019-09-27 22:44 | Emergency Department Note ---
Entered by Leda Méndez acting as a scribe for Ace Resendez MD ED Provider Note CHIEF COMPLAINT: abdominal pain HISTORY OF PRESENT ILLNESS: The patient is a 74 year old F who presents to the Emergency Room with complaints of worsening abdominal pain that 4 days ago. The patient states that she had a cholecystectomy performed, on September 22. She notes that she had to be admitted to the hospital overnight after her surgery because she had an adverse reaction to Dilaudid and Tylenol with codeine. She adds that she was dis charged on September 23. She notes that she has been taking Ibuprofen ever since. She states that she is currently experiencing nausea, abdominal pain, and chills. She notes that her abdominal pain is located in her RLQ. She currently rates her pain as 8 out of 10. She states that she called Dr. Lovell and described her symptoms. She notes that Dr. Lovell referred her to the ED. She adds that she moved her bowels twice today. She notes that her bowel movements were normal. Pt denies LOC, headache, diaphoresis, visual changes, neck pain, chest pain, breathing difficulties, coughing, vomiting, back pain, melena, hematochezia, urinary symptoms, numbness, weakness, lymphadenopathy, rash, or other complaints. REVIEW OF SYSTEMS: See HPI for pertinent positives and negatives. A total of ten systems were reviewed and were otherwise negative. PMHx/PSHx: Cholecystectomy, GERD, murmur, sepsis, HLD, HTN, OA, PVD, TIA SOCIAL HISTORY: Patient lives at home. Patient is not a smoker. Patient does not drink alcohol. PHYSICAL EXAM: GENERAL: Awake, alert, uncomfortable-appearing HENT: Normocephalic, atraumatic. Oropharynx unremarkable. EYES: PERRL. Normal conjunctiva. Sclera non-icteric. NECK: Inspection normal. Non-tender. Supple. No nuchal rigidity. FROM. No mass es. RESPIRATORY: Clear to auscultation. No wheezes. No rales. Normal respiratory effort. CARDIAC: Tachycardic rate. Normal rhythm. No murmurs. No rubs. Extremities warm and well perfused. Pulses equal. No JVD. GI: Soft, non-distended. RLQ tenderness to palpation. Mild guarding. No rebound. No masses. RECTAL: Deferred. MUSCULOSKELETAL: Atraumatic. Chest examination reveals no tenderness. The back is symmetrical on inspection without obvious abnormality. There is no CVA tenderness to palpation. No joint edema. LOWER EXTREMITIES: Calves are equal size bilaterally and non-tender. No edema. No discoloration. NEURO: Normal sensorium. No sensory or motor deficits noted. SKIN: No rash or jaundice noted. EMERGENCY DEPARTMENT COURSE: 1850: The patient was evaluated in room C3, and a complete history and physical examination were performed. 2037: The patient is doing well. The patient is going to CAT scan in 30 minutes. 4: I paged surgery for the patient due to her appendicitis finding on CT. 0: I reviewed the patient's case with Dr. Anthony, [facility] General Surgery. He will evaluate the patient for further management. He states that he will also consult with the patient's doctor to remove the patient's biliary stent at the same time. MEDICAL DECISION MAKING: C3 Prior records/ancillary studies reviewed. Triage Nursing notes reviewed and agree them. Additional history obtained from family. The patient's history was concerning for abdominal pain 4 days status post gal lbladder surgery. Differential diagnosis: Etiologies such as complication from recent surgery, appendicitis, diverticulitis, PUD, biliary pathology, UTI, pancreatitis, obstruction, mesenteric ischemia, aortic pathology, infections, inflammatory bowel disease, renal colic, as well as others were entertained. Physical examination findings: As above. ER treatment provided: Normal saline hydration IV Zofran IV fentanyl On reassessment the patient felt better. IV Cipro IV Flagyl Diagnostics interpreted by me: The labs revealed a moderate leukocytosis on CBC. Chemistry panel unremarkable. Urinalysis did show some concern for infection. Imaging studies: CT scan of the abdomen pelvis was performed. This revealed acute appendicitis Consultation: A consultation was placed with the general surgeon on-call, Dr. Anthony. The case was discussed and diagnostics were reviewed. The patient was admitted to the service for further treatment of her acute appendicitis. IMPRESSION: appendicitis, UTI without hematuria, RLQ abdominal pain PLAN: Admitted as inpatient. The scribe's documentation has been prepared under my direction and personally reviewed by me in its entirety. I confirm that the note above accurately reflects all work, treatment, procedures, and medical decision making performed by me. Impression & Plan Abdominal pain, RLQ, Appendicitis, Urinary tract infection without hematuria Past Med/Surg History Medical History Cardiac murmur GERD (gastroesophageal reflux disease) Hx of sepsis HOSPITALIZED 03/2019 "CAUSED POSSIBLY BY LISINOPRIL/HCTZ AND DAILY ASA" Hyperlipidemia Hypertension Migraine Osteoarthritis PVD (peripheral vascular disease) Transient ischemic attack (TIA) "YEARS AGO" NO RECENT EPISODES Surgical History History of anesthesia reaction SLOW TO WAKE UP History of carotid endarterectomy RT 2013 History of cataract surgery RT/LEFT History of colonoscopy History of esophagogastroduodenoscopy (EGD) History of tooth extraction Family History Other Family history non-contributory Social History Preferred Language: [place] Communication Ability: Effective 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 Beliefs That Will Affect Care: None Current Living Situation: Family Feels Safe at Home: Yes Smoking Status: Never smoker Second Hand Exposure: No ; Hx Alcohol Use: No Hx Substance Use: No Results & Data Vital Signs Vital Signs - 24 hr 09/27/19 18:33 09/27/19 19:44 09/27/19 19:48 Temperature 37 C Temperature Source Oral Pulse Rate 118 H 105 H 105 H Pulse Rate from SpO2 Sensor 103 H 105 H Respiratory Rate 18 20 23 Respiratory Effort / Characteristics Non-Labored Spontaneous Respiratory Depth Normal Blood Pressure 166/93 H 141/87 H Blood Pressure Mean 117 105 Blood Pressure Position Sitting Pulse Oximetry 96 Oxygen Delivery Method Room Air Sepsis Recent Fever Within 48 Hours No Sepsis Action Taken by Nursing No Action Required 09/27/19 20:00 09/27/19 20:01 09/27/19 20:30 Temperature Temperature Source Pulse Rate 104 H 104 H 106 H Pulse Rate from SpO2 Sensor 105 H 104 H 99 H Respiratory Rate 21 22 22 Respiratory Effort / Characteristics Respiratory Depth Blood Pressure 154/83 H 153/81 H Blood Pressure Mean 100 101 Blood Pressure Position Pulse Oximetry 94 94 94 Oxygen Delivery Method Sepsis Recent Fever Within 48 Hours Sepsis Action Taken by Nursing 09/27/19 20:31 09/27/19 21:00 09/27/19 21:01 Temperature Temperature Source Pulse Rate 108 H 107 H 107 H Pulse Rate from SpO2 Sensor 104 H 108 H 107 H Respiratory Rate 20 24 19 Respiratory Effort / Characteristics Respiratory Depth Blood Pressure 147/74 H Blood Pressure Mean 96 Blood Pressure Position Pulse Oximetry 95 96 95 Oxygen Delivery Method Sepsis Recent Fever Within 48 Hours Sepsis Action Taken by Nursing 09/27/19 22:23 09/27/19 22:30 09/27/19 22:31 Temperature Temperature Source Pulse Rate 118 H 115 H 112 H Pulse Rate from SpO2 Sensor 116 H 115 H 114 H Respiratory Rate 18 20 24 Respiratory Effort / Characteristics Respiratory Depth Blood Pressure 174/93 H Blood Pressure Mean 127 Blood Pressure Position Pulse Oximetry 97 96 95 Oxygen Delivery Method Sepsis Recent Fever Within 48 Hours Sepsis Action Taken by Long Term Medications Current Medication List: was personally reviewed by me Laboratory Data Attestation: I reviewed the patient's lab results. Result diagrams: 09/27/19 19:25 09/27/19 19:25 Lab Results 09/27/19 09/27/19 09/27/19 Range/Units 19:25 19:25 20:16 WBC 15.56 H (4.8-10.8) K/uL RBC 5.00 (4.2-5.4) M/uL Hgb 15.2 (12.0-16.0) g/dL Hct 44.5 (37-47) % MCV 89.0 (80-100) fL MCH 30.4 (25-34) pg MCHC 34.2 (32-36) g/dL RDW Std Deviation 42.9 (36.4-46.3) fL RDW Coeff of Nikko 13.2 (11.5-14.5) % Plt Count 295 (130-400) K/uL MPV 9.1 (7.4-10.4) fL Immature Gran % (Auto) 0.2 % Neut % (Auto) 78.3 % Lymph % (Auto) 9.8 % Warrick % (Auto) 9.1 % Eos % (Auto) 2.4 % Baso % (Auto) 0.2 % Immature Gran # (Auto) 0.03 H (0.00-0.02) K/uL Neut # (Auto) 12.19 H (1.4-6.5) K/uL Lymph # (Auto) 1.52 (1.2-3.4) K/uL Warrick # (Auto) 1.41 H (0.11-0.59) K/uL Eos # (Auto) 0.38 (0-0.5) K/uL Baso # (Auto) 0.03 (0-0.2) K/uL Sodium 137 (136-145) mmol/L Potassium 3.9 (3.5-5.1) mmol/L Chloride 104 (98-107) mmol/L Carbon Dioxide 28 (21-32) mmol/L Anion Gap 6.0 (3-11) BUN 13 (7-18) mg/dl Creatinine 0.89 (0.6-1.2) mg/dl Est Cr Clr Drug Dosing 65.0 ml/min Est GFR ( Amer) 74.0 Est GFR (Non-Af Amer) 63.8 BUN/Creatinine Ratio 14.2 (10-20) Glucose 111 H (70-99) mg/dl Calcium 10.0 (8.5-10.1) mg/dl Total Bilirubin 0.8 (0.2-1) mg/dl AST 18 (15-37) U/L ALT 20 (12-78) U/L Alkaline Phosphatase 120 H (45-117) U/L Total Protein 8.1 (6.4-8.2) gm/dl Albumin 3.6 (3.4-5.0) gm/dl Globulin 4.5 H (2.5-4.0) gm/dl Albumin/Globulin Ratio 0.8 L (0.9-2) Lipase 196 (73-393) U/L Urine Color Yellow Urine Appearance Clear (Clear) Urine pH 7.0 (4.5-7.5) Ur Specific [place] 1.012 (1.000-1.030) Urine Protein Negative (Negative) Urine Glucose (UA) Negative (Negative) Urine Ketones Trace H (Negative) Urine Blood Negative (Negative) Urine Nitrite Negative (Negative) Urine Bilirubin Negative (Negative) Urine Urobilinogen Negative (Negative) Ur Leukocyte Esterase Trace H (Negative) Urine WBC (Auto) 10-30 H (0-5) /hpf Urine RBC (Auto) 0-4 (0-4) /hpf U Hyaline Cast (Auto) 0 (0-5) /lpf U Epithel Cells (Auto) 5-10 H (0-5) /lpf Urine Bacteria (Auto) 1+ H (Negative) Administered Medications Fentanyl Citrate (Fentanyl Citrate) 50 mcg IV Q15M PRN PRN Reason: Pain Stop: 10/11/19 18:59 Last Admin: 09/27/19 19:41 Dose: 50 mcg Documented by: [id number] Ciprofloxacin (Cipro) 400 mg in 200 mls @ 200 mls/hr IV NOW STA Stop: 09/27/19 23:12 Last Admin: 09/27/19 22:27 Dose: 200 mls/hr Documented by: [id number] Metronidazole (Flagyl) 500 mg in 100 mls @ 100 mls/hr IV NOW STA Stop: 09/27/19 23:12 Last Admin: 09/27/19 22:26 Dose: 100 mls/hr Documented by: [id number] Ioversol (Optiray 320 100ml) 94 ml IV ONCE PRN PRN Reason: Interaction Checking Stop: 10/01/19 21:50 Last Admin: 09/27/19 21:51 Dose: 94 ml Documented by: [id number] Discontinued Medications Sodium Chloride (Nss 1000ml) 500 mls @ 999 mls/hr IV .Q31M ONE Stop: 09/27/19 19:22 Last Infusion: 09/27/19 20:14 Dose: 0 mls/hr Documented by: [id number] Admin: 09/27/19 19:41 Dose: 999 mls/hr Documented by: [id number] Ondansetron HCl (Zofran) 4 mg IV NOW STA Stop: 09/27/19 18:53 Last Admin: 09/27/19 19:40 Dose: 4 mg Documented by: [id number] Imaging Data Radiologist's Impression: Radiology results as stated below per my review and the radiologist's interpretation: CT abd pelvis oral and IV con CLINICAL HISTORY: 74 years-old Female presenting with RLQ abd pain, 5 days post cholecystectomy. TECHNIQUE: Multidetector CT of the abdomen and pelvis was performed after the administration of oral and intravenous contrast. IV contrast: 94 mL of Optiray 320. One or more dose lowering techniques were used consistent with the principles of ALARA (as low as reasonably achievable), including automatic exposure control, mA or kV adjustment to individual patient size, and/or use of iterative reconstruction. COMPARISON: 07/06/2017. CT DOSE (mGy.cm): The estimated cumulative dose is 664.05 mGy.cm. 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 Plastic common bile duct stent in place. Lung bases: Normal heart size. Coronary artery and aortic valve calcification. No pericardial or pleural effusion. Minimal dependent changes likely atelectasis. Liver: Normal morphology. No liver lesion. Patent hepatic vasculature. Biliary: Pneumobilia noted. A plastic common bile duct stent is in place. Gallbladder surgically absent. Infiltration of the gallbladder fossa expected in the recent postsurgical setting. No fluid collection. Pancreas: Normal. Spleen: Normal. Adrenal glands: Normal. Kidneys and ureters: Numerous small cysts noted. No nephrolithiasis or hydronephrosis. Ureters nondistended. Extrarenal pelvis on the right. Bladder: Circumferential bladder wall thickening. Pelvic organs: Globular morphology of the uterus as on prior exam consistent with underlying dominant intramural fibroid along the left posterolateral uterine wall. Ovaries normal. Bowel: Dilated nonopacified appendix with a diameter of over 10 mm. Several appendicoliths are noted including at the appendiceal base. Mild periappendiceal fat stranding. Previously this is a very dissimilar appearance of the appendix in comparison to prior. No bowel obstruction. Small sliding type hiatal hernia. Small duodenal diverticulum at the level of the pancreatic head. Peritoneal cavity: No free fluid or intraperitoneal gas. Lymph nodes: Few prominent nodes in the right lower quadrant mesentery, likely reactive. Vasculature: Atherosclerosis of the normal caliber abdominal aorta. IVC patent. Abdominal wall: Infiltration in the periumbilical region likely relates to a recent trocar site. Additional trocar sites suspected in the right upper quadrant. No associated fluid collection. Musculoskeletal: Several bone islands noted in the pelvis. Degenerative changes of the spine. IMPRESSION: 1. Acute uncomplicated appendicitis with several appendicoliths present including at the appendiceal base. The appendix with a diameter of over 1 cm. Surgical consultation is necessary. 2. Postsurgical changes of cholecystectomy without evidence of complication. 3. Plastic common bile duct stent in place. 4. Fibroid uterus. 5. Bladder wall thickening likely due to underdistention or less likely cystitis. Correlate with urinalysis. The report will be called/faxed according to standard departmental protocol for a critical finding. ACT 112: Negative or not required by law. Electronically signed by: Michael Zepeda M.D. 09/27/2019 10:11 PM Blood Pressure Blood Pressure Findings: Elevated blood pressure Blood Pressure Disposition: further management by hospitalist Discharge Plan Visit Data Chief Complaint: Abdominal Pain Stated Complaint: PAIN LRQ,GALLBLADDER SURGERY LAST SUNDAY ED Provider: Ace Resendez Discharge Problem: Abdominal pain, RLQ, Appendicitis, Urinary tract infection without hematuria Patient Disposition: Admitted As Inpatient Forms Stand Alone Forms: Call Back Authorization, My [facility] Prescriptions Prescriptions: No Action metoprolol succinate 25 mg Tablet Extended Release 24 Hr 25 mg PO QPM RF: 0 garlic 400 mg Tablet 400 mg PO QPM RF: 0 coenzyme Q10 [CoQ-10] 100 mg Capsule 100 mg PO QAM RF: 0 diclofenac sodium 1 % Gel 4 g TOPICAL QID PRN (Reason: KNEE PAIN) RF: 0 omega [id number] oil [Fish Oil] 1,000 mg (120 mg-180 mg) Capsule 1 cap PO QAM RF: 0 multivitamin Tablet 1 tab PO QDL RF: 0 Gaviscon 95-358 mg/15 mL Suspension 30 ml PO PCHS PRN (Reason: Indigestion) RF: 0 cetirizine [Zyrtec] 10 mg Tablet 10 mg PO HS RF: 0 calcium carbonate [Tums] 200 mg calcium (500 mg) Tablet,Chewable 200 mg PO BID PRN (Reason: Indigestion) RF: 0 furosemide 20 mg Tablet 10 mg PO Q OTHER DAY RF: 0 cholecalciferol (vitamin D3) [Vitamin D3] 1,000 unit Capsule 1,000 unit PO QAM RF: 0 omeprazole 20 mg Tablet,Delayed Release (Dr/Ec) 20 mg PO QAM RF: 0 Probiotic 3 billion cell Capsule 3,000 mmu cells PO QAM RF: 0 diphenhydramine HCl [Benadryl] 25 mg capsule 25 mg PO Q8H PRN (Reason: itching) Qty: 90 RF: 0 epinephrine [EpiPen] 0.3 mg/0.3 mL auto-injector 0.3 mg IM Q3H PRN (Reason: anaphylaxis) Qty: 1 RF: 3 Christy-C with Bioflavonoids 500-200 mg Tablet 1 tab PO QAM RF: 0 clopidogrel [Plavix] 75 mg tablet 75 mg PO QAM RF: 0 acetaminophen [Tylenol 8 Hour] 650 mg tablet extended release 650 mg PO Q6H PRN (Reason: pain) Qty: 20 RF: 0 Referrals Referrals: Newhouser,Mercedes M., DO [Primary Care Provider] - Discharge Problem: Appendicitis Qualifiers: Appendicitis type: unspecified Qualified Code(s): K37 - Unspecified appendic itis Urinary tract infection without hematuria Qualifiers: Urinary tract infection type: site unspecified Qualified Code(s): N39.0 - Urinary tract infection, site not specified The scribe's documentation has been prepared under my direction and personally reviewed by me in its entirety. I confirm that the note above accurately reflects all work, treatment, procedures, and medical decision making performed by me.
[2019-09-27] MEDS ORDERED: FENTANYL BOLUS FROM BAG IV PRN (23:11)
[2019-09-27] MEDS: ACETAMINOPHEN 1,000 MG/100 ML VIAL IV PRN (23:40)
[2019-09-27] MEDS: SODIUM CHLORIDE 0.9% 1000ML 1,000 ML IV SCH (23:40)
[2019-09-27] MEDS: ONDANSETRON INJ 2 MG/ML 2 ML VIAL IV PRN (23:40)
[2019-09-28] MEDS ORDERED: HYDROmorphone INJ 1 MG/ML SYRINGE ONE (00:48)
[2019-09-28] MEDS: ONDANSETRON INJ 2 MG/ML 2 ML VIAL IV PRN ×2 (04:24→20:09)
[2019-09-28] MEDS: HYDROmorphone INJ 1 MG/ML SYRINGE IV PRN ×3 (04:24→14:04)
[2019-09-28] MEDS: metroNIDAZOLE 500 MG/100 ML BAG IV SCH ×3 (04:27→21:15)
--- NOTE | 2019-09-28 07:48 | Gastrointestinal Consultation ---
Date of Consultation September 28, 2019 Assessment & Plan (1) Choledocholithiasis: Patient is s/p ERCP 07/14 with choledocholithiasis removal and plastic stent placement, s/p Lap keli last week, no has acute appendicitis. Patient and surgical team requested if we can remove the CBD stent via ERCP today when is is sedated for her lap appendectomy as she wants to avoid another sedation next week for her elective ERCP. From my standpoint, I see no reason not to perform ERCP with stent removal while she is sedated for her appendectomy based on her request to avoid another sedation. Her LFTs normalized post stent placement and she is post cholecystectomy any ways. CT scan showed no fluid collection and no signs of bile leak. I explained to the patient the risk, benefit and alternatives of the procedure and she agreed. ERCP today. (2) Pneumobilia: (3) Abdominal pain, RLQ: History of Present Illness Attending Physician: Samuel Anthony, DO 74 years old female patient with multiple medical comorbids, recently found to have abnormal LFTs, EUS showed CBD stone hence ERCP was done with stone removal and CBD stent placement. She underwent Lap keli 5 days ago which was uncomplicated, now presented with severe RLQ abdominal pain and leukocytosis, CT scan showed acute appendicitis. Seen by surgery and planed for appendectomy today however the patient requested if we can remove her CBD stent today at the same time she gets anesthesia for her Lap appendectomy and cancel her upcoming ERCP next week. She denies any fever, moving bowel, has nausea but no vomiting. Allergies Allergy/AdvReac Type Severity Reaction Status Date / Time aspirin Allergy Severe Anaphylaxis Verified 09/22/19 11:01 lisinopril Allergy Severe Difficulty Verified 09/22/19 11:01 Swallowing amlodipine [From Norvasc] Allergy Intermediate LEG Verified 09/22/19 11:01 SWELLING hydrochlorothiazide Allergy Intermediate Hives Verified 09/22/19 11:01 Aawbswk-Kxq-Xgn Reductase Allergy Intermediate EFFECTED Verified 09/22/19 11:01 Inhibitor LIVER ENZYMES codeine Allergy Unknown Unverified 09/27/19 19:29 amoxicillin [From Augmentin] AdvReac Vomiting Unverified 09/27/19 19:30 clavulanic acid AdvReac Vomiting Unverified 09/27/19 19:30 [From Augmentin] Home Medications Home Medications Medication Instructions Recorded Confirmed Type coenzyme Q10 [CoQ-10] 100 mg PO QAM 01/21/19 09/27/19 History diclofenac sodium 4 g TOPICAL QID PRN 01/21/19 09/27/19 History garlic 400 mg PO QPM 01/21/19 09/27/19 History metoprolol succinate 25 mg PO QPM 01/21/19 09/27/19 History omega 8-knq-joo-fish oil [Fish Oil] 1 cap PO QAM 01/21/19 09/27/19 History diphenhydramine HCl [Benadryl] 25 mg PO Q8H PRN #90 cap 03/26/19 09/27/19 Rx epinephrine [EpiPen] 0.3 mg IM Q3H PRN #1 ea 03/26/19 09/27/19 Rx Gaviscon 30 ml PO PCHS PRN 06/26/19 09/27/19 History Probiotic 3,000 mmu cells PO QAM 06/26/19 09/27/19 History calcium carbonate [Tums] 200 mg PO BID PRN 06/26/19 09/27/19 History cetirizine [Zyrtec] 10 mg PO HS 06/26/19 09/27/19 History cholecalciferol (vitamin D3) 1,000 unit PO QAM 06/26/19 09/27/19 History [Vitamin D3] furosemide 10 mg PO Q OTHER DAY 06/26/19 09/27/19 History multivitamin 1 tab PO QDL 06/26/19 09/27/19 History omeprazole 20 mg PO QAM 06/26/19 09/27/19 History Christy-C with Bioflavonoids 1 tab PO QAM 08/06/19 09/27/19 History clopidogrel [Plavix] 75 mg PO QAM 08/06/19 09/27/19 History acetaminophen [Tylenol 8 Hour] 650 mg PO Q6H PRN #20 tab 09/23/19 09/27/19 Rx Patient History Medical History Cardiac murmur GERD (gastroesophageal reflux disease) Hx of sepsis HOSPITALIZED 03/2019 "CAUSED POSSIBLY BY LISINOPRIL/HCTZ AND DAILY ASA" Hyperlipidemia Hypertension Migraine Osteoarthritis PVD (peripheral vascular disease) Transient ischemic attack (TIA) "YEARS AGO" NO RECENT EPISODES Surgical History History of anesthesia reaction SLOW TO WAKE UP History of carotid endarterectomy RT 2014 History of cataract surgery RT/LEFT History of colonoscopy History of esophagogastroduodenoscopy (EGD) History of tooth extraction Family History Other Family history non-contributory Social History Preferred Language: Albanian Communication Ability: Effective 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 Beliefs That Will Affect Care: None Current Living Situation: Family Feels Safe at Home: Yes Safety Concerns: Feels Safe At This Time Smoking Status: Never smoker Second Hand Exposure: No ; Hx Alcohol Use: No Hx Substance Use: No Review of Systems Constitutional: no fever, no chills, no fatigue and no weight loss Eyes: no eye pain and no worsening vision Ear, Nose, Mouth, Throat: no tinnitus, no dizziness, no nasal discharge and no epistaxis Respiratory: no cough, no dyspnea, no dyspnea on exertion and no wheezing Cardiovascular: no chest pain, no orthopnea, no palpitations and no edema Gastrointestinal: as per Subjective / HPI Genitourinary: no dysuria, no urinary frequency, no urinary incontinence and no hematuria Musculoskeletal: no stiffness and no myalgia Neurologic: no localized weakness, no paralysis, no tremor(s) and no headache(s) Endocrine: no polydipsia and no polyuria Hematologic / Lymphatic: no easy bleeding and no night sweats Physical Exam Constitutional: + well hydrated, cooperative and comfortable Eyes: PERRL, conjunctivae normal, anicteric sclerae ENMT: external ear and nose normal, oropharynx normal Neck: normal visual inspection and trachea midline Respiratory: normal respiratory effort, lungs clear to auscultation Auscultation: no wheezes Cardiovascular: RRR, no murmur, no edema Gastrointestinal (Abdomen): Inspection/Auscultation: abdomen normal to inspection Percussion/Palpation: + abdomen tender (RLQ +++) and abdomen soft Musculoskeletal: no cyanosis or clubbing, extremities motor strength 5/5 Skin: no rashes, warm and dry Neurologic: awake; no focal motor deficits Motor/Sensory: no tremor Results & Data Vital Signs (Past 12 Hours) Vital Signs Temp Pulse Pulse Pulse Pulse Resp BP 09/28/19 00:45 36.9 C 109 H 24 09/27/19 23:48 118 H 09/27/19 23:18 37.1 C 126 H 20 09/27/19 22:31 112 H 24 09/27/19 22:30 115 H 20 174/93 H 09/27/19 22:23 118 H 18 09/27/19 21:01 107 H 19 09/27/19 21:00 107 H 24 147/74 H 09/27/19 20:31 108 H 20 09/27/19 20:30 106 H 22 153/81 H 09/27/19 20:01 104 H 22 09/27/19 20:00 104 H 21 154/83 H 09/27/19 19:48 105 H 23 BP Pulse Ox 09/28/19 00:45 126/73 94 09/27/19 23:48 132/81 09/27/19 23:18 170/94 H 96 09/27/19 22:31 95 09/27/19 22:30 96 09/27/19 22:23 97 09/27/19 21:01 95 09/27/19 21:00 96 09/27/19 20:31 95 09/27/19 20:30 94 09/27/19 20:01 94 09/27/19 20:00 94 09/27/19 19:48 Laboratory Results Laboratory Results - last 24 hr 09/27/19 09/27/19 09/27/19 19:25 19:25 20:16 WBC 15.56 H RBC 5.00 Hgb 15.2 Hct 44.5 MCV 89.0 MCH 30.4 MCHC 34.2 RDW Std Deviation 42.9 RDW Coeff of Nikko 13.2 Plt Count 295 MPV 9.1 Immature Gran % (Auto) 0.2 Neut % (Auto) 78.3 Lymph % (Auto) 9.8 [place] % (Auto) 9.1 Eos % (Auto) 2.4 Baso % (Auto) 0.2 Immature Gran # (Auto) 0.03 H Neut # (Auto) 12.19 H Lymph # (Auto) 1.52 [place] # (Auto) 1.41 H Eos # (Auto) 0.38 Baso # (Auto) 0.03 Sodium 137 Potassium 3.9 Chloride 104 Carbon Dioxide 28 Anion Gap 6.0 BUN 13 Creatinine 0.89 Est Cr Clr Drug Dosing 65.0 Est GFR ( Amer) 74.0 Est GFR (Non-Af Amer) 63.8 BUN/Creatinine Ratio 14.2 Glucose 111 H Calcium 10.0 Total Bilirubin 0.8 AST 18 ALT 20 Alkaline Phosphatase 120 H Total Protein 8.1 Albumin 3.6 Globulin 4.5 H Albumin/Globulin Ratio 0.8 L Lipase 196 Urine Color Yellow Urine Appearance Clear Urine pH 7.0 Ur Specific [place] 1.012 Urine Protein Negative Urine Glucose (UA) Negative Urine Ketones Trace H Urine Blood Negative Urine Nitrite Negative Urine Bilirubin Negative Urine Urobilinogen Negative Ur Leukocyte Esterase Trace H Urine WBC (Auto) 10-30 H Urine RBC (Auto) 0-4 U Hyaline Cast (Auto) 0 U Epithel Cells (Auto) 5-10 H Urine Bacteria (Auto) 1+ H
[2019-09-28] MEDS: SODIUM CHLORIDE 0.9% 1000ML 1,000 ML IV SCH ×3 (07:53→21:24)
--- NOTE | 2019-09-28 08:03 | History & Physical Report ---
Date of Service September 28, 2019 Assessment & Plan (1) Appendicitis: will proceed with lap/poss open appendectomy. Discussed risks (bleeding/infection/dvt/pe/mi/cva/injury to an organ etc...). pt agreeable to appendectomy. also discussed with GI..they can remove biliary stent at same time. will proceed this AM. Appendicitis type: unspecified Qualified Code(s): K37 - Unspecified appendicitis History of Present Illness Primary Care Provider: Mercedes Kilgore, DO 74 y/o WF about a week s/p lap keli by Dr. Lovell who also had a biliary stent placed began having RLQ pain yesterday am. progressed through the day. presented to ER last night and CT shows acute appendicitis. Allergies Allergy/AdvReac Type Severity Reaction Status Date / Time aspirin Allergy Severe Anaphylaxis Verified 09/22/19 11:01 lisinopril Allergy Severe Difficulty Verified 09/22/19 11:01 Swallowing amlodipine [From Norvasc] Allergy Intermediate LEG Verified 09/22/19 11:01 SWELLING hydrochlorothiazide Allergy Intermediate Hives Verified 09/22/19 11:01 Mcinqic-Xcl-Omt Reductase Allergy Intermediate EFFECTED Verified 09/22/19 11:01 Inhibitor LIVER ENZYMES codeine Allergy Unknown Unverified 09/27/19 19:29 amoxicillin [From Augmentin] AdvReac Vomiting Unverified 09/27/19 19:30 clavulanic acid AdvReac Vomiting Unverified 09/27/19 19:30 [From Augmentin] Home Medications Home Medications Medication Instructions Recorded Confirmed Type coenzyme Q10 [CoQ-10] 100 mg PO QAM 01/21/19 09/27/19 History diclofenac sodium 4 g TOPICAL QID PRN 01/21/19 09/27/19 History garlic 400 mg PO QPM 01/21/19 09/27/19 History metoprolol succinate 25 mg PO QPM 01/21/19 09/27/19 History omega 3-zhx-efo-fish oil [Fish Oil] 1 cap PO QAM 01/21/19 09/27/19 History diphenhydramine HCl [Benadryl] 25 mg PO Q8H PRN #90 cap 03/26/19 09/27/19 Rx epinephrine [EpiPen] 0.3 mg IM Q3H PRN #1 ea 03/26/19 09/27/19 Rx Gaviscon 30 ml PO PCHS PRN 06/26/19 09/27/19 History Probiotic 3,000 mmu cells PO QAM 06/26/19 09/27/19 History calcium carbonate [Tums] 200 mg PO BID PRN 06/26/19 09/27/19 History cetirizine [Zyrtec] 10 mg PO HS 06/26/19 09/27/19 History cholecalciferol (vitamin D3) 1,000 unit PO QAM 06/26/19 09/27/19 History [Vitamin D3] furosemide 10 mg PO Q OTHER DAY 06/26/19 09/27/19 History multivitamin 1 tab PO QDL 06/26/19 09/27/19 History omeprazole 20 mg PO QAM 06/26/19 09/27/19 History Christy-C with Bioflavonoids 1 tab PO QAM 08/06/19 09/27/19 History clopidogrel [Plavix] 75 mg PO QAM 08/06/19 09/27/19 History acetaminophen [Tylenol 8 Hour] 650 mg PO Q6H PRN #20 tab 09/23/19 09/27/19 Rx Past Med/Surg History Medical History Cardiac murmur GERD (gastroesophageal reflux disease) Hx of sepsis HOSPITALIZED 03/2019 "CAUSED POSSIBLY BY LISINOPRIL/HCTZ AND DAILY ASA" Hyperlipidemia Hypertension Migraine Osteoarthritis PVD (peripheral vascular disease) Transient ischemic attack (TIA) "YEARS AGO" NO RECENT EPISODES Surgical History History of anesthesia reaction SLOW TO WAKE UP History of carotid endarterectomy RT 2013 History of cataract surgery RT/LEFT History of colonoscopy History of esophagogastroduodenoscopy (EGD) History of tooth extraction Family History Other Family history non-contributory Social History Preferred Language: Yi Communication Ability: Effective Research Phlebotomist Required: No Beliefs That Will Affect Care: None Current Living Situation: Family Feels Safe at Home: Yes Safety Concerns: Feels Safe At This Time Smoking Status: Never smoker Second Hand Exposure: No ; Hx Alcohol Use: No Hx Substance Use: No Review of Systems All systems reviewed & are unremarkable except as noted in HPI & below Physical Exam Constitutional: WD/WN, vitals as above no acute distress and not ill appearing Eyes: PERRL, conjunctivae normal, anicteric sclerae EOM intact bilaterally ENMT: external ear and nose normal, oropharynx normal Ears: no hearing impairment Neck: trachea midline, no thyromegaly Respiratory: normal respiratory effort; no respiratory distress and does not use accessory muscles Cardiovascular: Rate/Rhythm: regular rate and regular rhythm Gastrointestinal (Abdomen): soft. +RLQ ttp. +Rovsing. +guarding. Skin: no rashes, warm and dry Psychiatric: Orientation: alert, oriented x 3 and cooperative Results & Data Vital Signs (Past 12 Hours) Vital Signs Temp Pulse Pulse Pulse Pulse Resp BP 09/28/19 07:40 37.2 C 127 H 18 09/28/19 00:45 36.9 C 109 H 24 09/27/19 23:48 118 H 09/27/19 23:18 37.1 C 126 H 20 09/27/19 22:31 112 H 24 09/27/19 22:30 115 H 20 174/93 H 09/27/19 22:23 118 H 18 09/27/19 21:01 107 H 19 09/27/19 21:00 107 H 24 147/74 H 09/27/19 20:31 108 H 20 09/27/19 20:30 106 H 22 153/81 H 09/27/19 20:01 104 H 22 BP Pulse Ox 09/28/19 07:40 130/73 93 09/28/19 00:45 126/73 94 09/27/19 23:48 132/81 09/27/19 23:18 170/94 H 96 09/27/19 22:31 95 09/27/19 22:30 96 09/27/19 22:23 97 09/27/19 21:01 95 09/27/19 21:00 96 09/27/19 20:31 95 09/27/19 20:30 94 09/27/19 20:01 94 Code Status & VTE Plan VTE Prophylaxis Plan VTE Prophylaxis will be ordered: Yes
--- NOTE | 2019-09-28 08:48 | Anesthesiology Consultation ---
Date of Service September 28, 2019 Assessment & Plan (1) Encounter for pre-operative examination: Chart Review Chart Review: Acceptable Risk for Surgery and Patient NOT seen in Pre Admission Testing Consults Requested none ASA ASA3 Proposed Anesthesia Anesthesia Type: General Risk / Benefits Reviewed With: PT / POA / Parent / Guardian, Accepts Plan and Informed Consent Obtained History Surgery Operation Date: 09/28/19 07:05 Proposed Procedures p Laparoscopic Appendectomy; Possible Biliary Stent Removal - Samuel Anthony, Height/Weight Height: 5 ft 9 in Weight: 86.6 kg Allergies Allergy/AdvReac Type Severity Reaction Status Date / Time aspirin Allergy Severe Anaphylaxis Verified 09/22/19 11:01 lisinopril Allergy Severe Difficulty Verified 09/22/19 11:01 Swallowing amlodipine [From Norvasc] Allergy Intermediate LEG Verified 09/22/19 11:01 SWELLING hydrochlorothiazide Allergy Intermediate Hives Verified 09/22/19 11:01 Dcxlusr-Cqn-Xrd Reductase Allergy Intermediate EFFECTED Verified 09/22/19 11:01 Inhibitor LIVER ENZYMES codeine Allergy Unknown Unverified 09/27/19 19:29 amoxicillin [From Augmentin] AdvReac Vomiting Unverified 09/27/19 19:30 clavulanic acid AdvReac Vomiting Unverified 09/27/19 19:30 [From Augmentin] Medications Home Medications Medication Instructions Recorded Confirmed Last Taken coenzyme Q10 [CoQ-10] 100 mg PO QAM 01/21/19 09/27/19 09/21/19 09:00 diclofenac sodium 4 g TOPICAL QID PRN 01/21/19 09/27/19 09/21/19 09:00 garlic 400 mg PO QPM 01/21/19 09/27/19 09/21/19 20:30 metoprolol succinate 25 mg PO QPM 01/21/19 09/27/19 09/21/19 20:30 omega 2-rcj-qtj-fish oil [Fish Oil] 1 cap PO QAM 01/21/19 09/27/19 09/21/19 20:30 diphenhydramine HCl [Benadryl] 25 mg PO Q8H PRN #90 cap 03/26/19 09/27/19 Unknown epinephrine [EpiPen] 0.3 mg IM Q3H PRN #1 ea 03/26/19 09/27/19 Unknown Gaviscon 30 ml PO PCHS PRN 06/26/19 09/27/19 Unknown Probiotic 3,000 mmu cells PO QAM 06/26/19 09/27/19 09/21/19 08:00 calcium carbonate [Tums] 200 mg PO BID PRN 06/26/19 09/27/19 09/21/19 15:00 cetirizine [Zyrtec] 10 mg PO HS 06/26/19 09/27/19 09/21/19 20:30 cholecalciferol (vitamin D3) 1,000 unit PO QAM 06/26/19 09/27/19 09/21/19 09:00 [Vitamin D3] furosemide 10 mg PO Q OTHER DAY 06/26/19 09/27/19 09/21/19 20:30 multivitamin 1 tab PO QDL 06/26/19 09/27/19 09/21/19 09:00 omeprazole 20 mg PO QAM 06/26/19 09/27/19 09/21/19 09:00 Christy-C with Bioflavonoids 1 tab PO QA 08/06/19 09/27/19 09/21/19 09:00 clopidogrel [Plavix] 75 mg PO QA 08/06/19 09/27/19 09/17/19 07:30 acetaminophen [Tylenol 8 Hour] 650 mg PO Q6H PRN #20 tab 09/23/19 09/27/19 Unknown Active Medications Generic Name Dose Route Start Last Admin Trade Name Freq PRN Reason Stop Dose Admin Hydromorphone HCl 1 mg 09/28/19 00:44 09/28/19 07:55 Dilaudid IV 10/12/19 00:43 1 mg Q3H PRN Administration Pain Acetaminophen 1,000 mg in 100 mls @ 400 mls/hr 09/27/19 23:11 09/27/19 23:55 Ofirmev IV 09/30/19 23:10 Infused Q8H PRN Infusion MILD Pain (Scale 1,2,3) Sodium Chloride 1,000 mls @ 125 mls/hr 09/27/19 23:11 09/28/19 07:53 Nss 1000ml IV 10/27/19 23:10 125 mls/hr .Q8H CARLOS Administration Metronidazole 500 mg in 100 mls @ 100 mls/hr 09/28/19 06:00 09/28/19 05:29 Flagyl IV 10/08/19 05:59 Infused Q8H CARLOS Infusion Ioversol 94 ml 09/27/19 21:51 09/27/19 21:51 Optiray 320 100ml IV 10/01/19 21:50 94 ml ONCE PRN Administration Interaction Checking Ondansetron HCl 4 mg 09/27/19 23:11 09/28/19 04:24 Zofran IV 10/27/19 23:10 4 mg Q4H PRN Administration Nausea And Vomiting NPO Date Last Intake of Fluids: 09/27/19 Time Last Intake of Fluids: 12:30 Date Last Intake of Solids: 09/27/19 Time Last Intake of Solids: 12:30 Past Medical History Medical History Cardiac murmur GERD (gastroesophageal reflux disease) Hx of sepsis HOSPITALIZED 03/2019 "CAUSED POSSIBLY BY LISINOPRIL/HCTZ AND DAILY ASA" Hyperlipidemia Hypertension Migraine Osteoarthritis PVD (peripheral vascular disease) Transient ischemic attack (TIA) "YEARS AGO" NO RECENT EPISODES Exercise / Class Metabolic Activity III < 4 Walking/Shop/Light housework Negative for chest pain or shortness of breath. Patient denies active symptoms of GERD. Past Family History Family History Other Family history non-contributory Past Surgical History Surgical History History of anesthesia reaction SLOW TO WAKE UP History of carotid endarterectomy RT 2013 History of cataract surgery RT/LEFT History of colonoscopy History of esophagogastroduodenoscopy (EGD) History of tooth extraction Past Anesthesia History No Hx of Anesthesia Complications History of PONV No Hx of PONV and No Hx of Motion Sickness Social History Smoking Status: Never smoker Hx Alcohol Use: No Hx Substance Use: No substance use type: does not use Review of Systems denies n/v Physical Exam Vital Signs Last Vital Signs Temp 37.2 C 09/28/19 07:40 Pulse 127 H 09/28/19 07:40 Resp 18 09/28/19 07:40 BP 130/73 09/28/19 07:40 Pulse Ox 93 09/28/19 07:40 Constitutional not obese ENMT Mouth: no TMJ abnormality and oral opening not small Thyromental Distance: < 3.5 Finger Breadths Mallampati Class: II Neck normal visual inspection; neck extension not limited Respiratory normal respiratory effort Auscultation: lungs clear to auscultation bilaterally Cardiovascular Rate/Rhythm: regular rate and regular rhythm Heart Sounds: + murmur Neurologic moves all extremities Psychiatric Orientation: alert and oriented x 3 Testing Laboratory Results 09/27/19 19:25 09/27/19 19:25 Urine Color Yellow 09/27/19 20:16 Urine Appearance Clear (Clear) 09/27/19 20:16 Urine pH 7.0 (4.5-7.5) 09/27/19 20:16 Ur Specific [place] 1.012 (1.000-1.030) 09/27/19 20:16 Urine Protein Negative (Negative) 09/27/19 20:16 Urine Glucose (UA) Negative (Negative) 09/27/19 20:16 Urine Ketones Trace (Negative) H 09/27/19 20:16 Urine Nitrite Negative (Negative) 09/27/19 20:16 Ur Leukocyte Esterase Trace (Negative) H 09/27/19 20:16 Urine WBC (Auto) 10-30 /hpf (0-5) H 09/27/19 20:16 Urine RBC (Auto) 0-4 /hpf (0-4) 09/27/19 20:16 U Hyaline Cast (Auto) 0 /lpf (0-5) 09/27/19 20:16 U Epithel Cells (Auto) 5-10 /lpf (0-5) H 09/27/19 20:16 Urine Bacteria (Auto) 1+ (Negative) H 09/27/19 20:16 09/27/19 20:16 Urine Culture - Preliminary Urine,Clean Catch Gram negative bacilli Other Testing Electrocardiogram Date: 06/12/19 Findings: + NSR @ (71 bpm) Stress Test Date: 06/27/19 Type: DSE Findings: + WNL Resting EF: 55-60% Resting LV Function: dysfunctional (disstolic grade 1 dysfunction) Resting RWMA: + none Valvular Disease: (mild)
[2019-09-28] MEDS ORDERED: PROPOFOL IV EMULSION 10 MG/ML 20 ML VIAL IV ONE ×2 (09:00→11:11)
[2019-09-28] MEDS ORDERED: ROCURONIUM BROMID 50MG/5ML SYR ONE (09:00)
[2019-09-28] MEDS ORDERED: ONDANSETRON INJ 2 MG/ML 2 ML VIAL ONE (09:00)
[2019-09-28] MEDS ORDERED: GLYCOPYRROLATE 0.2 MG/ML VIAL ONE (09:00)
[2019-09-28] MEDS ORDERED: fentaNYL citrate 100 MCG/2 ML VIAL ONE ×2 (09:00→11:12)
[2019-09-28] MEDS ORDERED: NEOSTIGMINE METHYLSULFATE 5 MG/5 ML SYR ONE (09:00)
[2019-09-28] MEDS ORDERED: LIDOCAINE HCL 2% 2 ML VIAL/AMP(20MG/ML) INFIL ONE (09:00)
[2019-09-28] MEDS ORDERED: EPINEPHrine INJ 1 MG/ML AMP ONE (09:31)
[2019-09-28] MEDS ORDERED: BUPIVACAINE 0.5 % 5 MG/1 ML MPF 30ML VIAL ONE (09:32)
[2019-09-28] MEDS ORDERED: DEXAMETHASONE SOD INJ 4 MG/ML VIAL ONE (10:02)
[2019-09-28] MEDS: CIPROFLOXACIN 400 MG/200 ML BAG IV SCH ×2 (10:02→22:26)
[2019-09-28] MEDS ORDERED: ONDANSETRON INJ 2 MG/ML 2 ML VIAL IV PRN (10:20)
[2019-09-28] MEDS ORDERED: ePHEDrine sulfate 50 MG/ML AMP IV PRN (10:20)
[2019-09-28] MEDS ORDERED: ATROPINE SULFATE 0.1 MG/ML 10ML SYR IV PRN (10:20)
--- NOTE | 2019-09-28 10:24 | Operative Report ---
Post Operative Report Pre & Post Diagnosis Operation Date: 09/28/19 07:05 Pre-Op Diagnosis: APPENDICITIS Post-Op Diagnosis: APPENDICITIS I identified the patient and participated in the time-out.: Yes Procedure Operation Date: 09/28/19 07:05 Actual Procedures p Laparoscopic Appendectomy - Samuel Anthony DO s Endoscopic Retrograde Cholangiopancreatoscopy; removal biliary stent - Jennifer Weston MD Surgeon Jennifer Weston MD Driver License Technician None Estimated Blood Loss 0 Findings See Below (CBD stent and stone removed) Specimens None Description of Procedure ERCP I attest to the content of the Intraoperative Record and any orders documented therein. Any exceptions are noted below.
[2019-09-28] MEDS ORDERED: ROCURONIUM BROMIDE 10 MG/ML 5 ML VIAL ONE (10:28)
--- NOTE | 2019-09-28 10:32 | GI REPORT ---
Patient Name: Tamia Danielle Procedure Date: 09/28/2019 9:28 AM Date of : 1945 Admit Type: Inpatient Age: 74 Gender: Female Attending MD: Jennifer Weston MD Procedure: ERCP Providers: Jennifer Weston MD Referring MD: Samuel Anthony, Tiffany Castellano, Indications: Follow-up of bile duct stone(s), Biliary stent removal, Prior major papilla endoscopic sphincterotomy, Prior endoscopic retrograde ampullary/ papillary stent placement Medicines: General Anesthesia Complications: No immediate complications. Estimated Blood Loss: Estimated blood loss: none. Procedure: Pre-Anesthesia Assessment: - Prior to the procedure, a History and Physical was performed, and patient medications, allergies and sensitivities were reviewed. The patient's tolerance of previous anesthesia was reviewed. - The risks and benefits of the procedure and the sedation options and risks were discussed with the patient. All questions were answered and informed consent was obtained. - Patient identification and proposed procedure were verified prior to the procedure by the physician and the nurse. The procedure was verified in the procedure room. - Pre-procedure physical examination revealed no contraindications to sedation. After obtaining informed consent, the scope was passed under direct vision. Throughout the procedure, the patient's blood pressure, pulse, and oxygen saturations were monitored continuously. The SCOPE was introduced through the mouth, and advanced to the duodenum and used to cannulate the bile duct. The ERCP was accomplished without difficulty. The patient tolerated the procedure well. Findings: A stallion manager film of the abdomen was obtained. Surgical clips, consistent with a previous cholecystectomy, were seen in the area of the right upper quadrant of the abdomen. A biliary stent was visible on the stallion manager film. The esophagus was successfully intubated under direct vision. The scope was advanced to a normal major papilla in the descending duodenum without detailed examination of the pharynx, larynx and associated structures, and upper GI tract. The upper GI tract was grossly normal. A biliary sphincterotomy had been performed. The sphincterotomy appeared narrowed. The major papilla was on the rim of a diverticulum. One stent was removed from the common bile duct using a rat-toothed forceps. A 0.035 inch straight standard wire was passed into the biliary tree. The Fusion OMNI sphincterotome was passed over the guidewire and the bile duct was then deeply cannulated. Contrast was injected. I personally interpreted the bile duct images. Ductal flow of contrast was adequate. Image quality was adequate. Contrast extended to the main bile duct. The main bile duct was dilated. The largest diameter was 9 mm. Bile duct orifice was successfully dilated with an 8 mm balloon dilator. The biliary tree was swept with a 12 mm balloon starting at the bifurcation. One stone was removed. No stones remained. Occlusion cholangiogram showed no filling defects or contrast extravasation. Pancreatic duct was not cannulated. Impression: - One stent was removed from the common bile duct. - Bile duct orifice was successfully dilated. - Choledocholithiasis was found. Complete removal was accomplished by balloon extraction. Recommendation: - [facility] for [facility]. - Recall GI if needed. Jennifer Weston MD 09/28/2019 10:31:42 AM This report has been signed electronically. Note Initiated On: 09/28/2019 9:28 AM Number of Addenda: 0 I attest to the content of the Intraoperative Record and orders documented therein, exceptions below {[id number]}
--- NOTE | 2019-09-28 10:34 | Fluoroscopy Report ---
[place] ERCP biliary ductal CLINICAL HISTORY: ERCP IN OR COMPARISON STUDY: CT of the abdomen and pelvis September 2019. FLUOROSCOPY TIME: 1 minute and 1 second. FLUOROSCOPIC IMAGES: 10 FINDINGS: Fluoroscopy was provided for ERCP. Biliary stent was removed. Balloon sweep through the com mon bile duct was noted. No filling defects are identified on the final image. IMPRESSION: Fluoroscopy provided for ERCP with biliary stent removal. ACT 112: Negative or not required by law. Electronically signed by: Caleb Orozco M.D. 09/28/2019 10:33 AM
[2019-09-28] MEDS: fentaNYL citrate 100 MCG/2 ML VIAL IV PRN ×4 (11:48→12:03)
--- NOTE | 2019-09-28 11:48 | Operative Report ---
[facility] Post Operative Report Pre & Post Diagnosis Operation Date: 09/28/19 07:05 Pre-Op Diagnosis: APPENDICITIS Post-Op Diagnosis: APPENDICITIS I identified the patient and participated in the time-out.: Yes Procedure Operation Date: 09/28/19 07:05 Actual Procedures p Laparoscopic Appendectomy - Samuel Anthony DO s Endoscopic Retrograde Cholangiopancreatoscopy; removal biliary stent - Jennifer Weston MD Surgeon Samuel Anthony DO Medic Technician None Estimated Blood Loss 5 Findings Consistent with Post-Op Diagnosis Specimens appendix Description of Procedure Prior to me entering the operating room the patient was already intubated and in supine position. Please see Dr. Luis A Tello's note regarding ERCP with stent removal. A Baltazar catheter had already been placed and the abdomen was sterilely prepped and draped in usual fashion. I began by opening her supraumbilical incision from her recent gallbladder surgery. I then took out the 0 Vicryl stay sutures and bluntly penetrated the abdominal cavity. Next I placed two #0 Vicryl stay sutures in the fascial edges. A 12 mm Mcclain trocar was inserted and the abdomen was insufflated to 20 mmHg. Laparoscope was inserted and the abdomen examined in 360 degrees. There were some dilated loops of bowel with some inflammation presumably from her recent surgery. I placed a suprapubic 5 mm trocar and a left lower quadrant 12 mm trocar under direct vision. The patient was then placed in a Trendelenburg position and slightly air planed to the left. We began by looking in the right lower quadrant. The appendix was readily apparent and grossly inflamed. It had not perforated. However when I grabbed it and peeled it away from the sidewall a small hole was made in the midportion of the appendix. Minimal contamination occurred. I used a [place] dissector to create a window in the mesentery of the appendix right at its base with the cecum. KHUSHBOO brown cartridge 60 mm stapler was used to transect the appendix at its base with the cecum. A second firing of a 60 mm brown cartridge was performed to take down the mesentery of the appendix. It was immediately placed into an Endo Catch bag and removed from the camera port site. While closing the bag I did transect the appendix into 2 pieces accidentally. Again there was no spillage into the abdominal cavity. We replaced the trocar and thoroughly irrigated the right lower quadrant. There was a small amount of purulent fluid in the pelvis which was suctioned out and thoroughly irrigated. We thoroughly irrigated the entire right side of the abdomen until all the irrigant was clear. At the end of the procedure the staple line looked good and there was adequate hemostasis. No other gross abnormalities were identified. I did run the small bowel backward for about 6 feet from the terminal ileum. I decided to place a 10 flat Darren-Martinez drain through 1 of the trocar sites. It was placed from the retrouterine space up to the right paracolic gutter. It was secured to the skin using 2-0 nylon. All the other trochars were removed and the abdomen desufflated. The fascia of the camera port was closed using 0 Vicryl in a [id number]-fo-qydye fashion. The wounds were thoroughly irrigated and closed using 4-0 Monocryl. Marcaine was injected around them for postoperative analgesia and skin glue used as a dressing. The patient was awakened extubated and transferred to recovery in stable condition. My physician wet process assistant head miller was present for the entire case. He helped prep the patient. He helped run the camera as well as with wound closure and dressing placement. I attest to the content of the Intraoperative Record and any orders documented therein. Any exceptions are noted below.
--- NOTE | 2019-09-28 12:33 | Anesthesiology Progress Note ---
Date of Service September 28, 2019 Anesthesia Post Procedure Vital Signs Vital Signs: Temp Pulse Pulse Pulse Pulse Pulse Resp 09/28/19 12:20 94 H 16 09/28/19 12:10 95 H 16 09/28/19 12:00 94 H 16 09/28/19 11:50 92 H 16 09/28/19 11:40 90 16 09/28/19 11:31 37.1 C 91 H 16 09/28/19 07:40 37.2 C 127 H 127 H 18 09/28/19 00:45 36.9 C 109 H 24 09/27/19 23:48 118 H 09/27/19 23:18 37.1 C 126 H 20 09/27/19 22:31 112 H 24 09/27/19 22:30 115 H 20 09/27/19 22:23 118 H 18 09/27/19 21:01 107 H 19 09/27/19 21:00 107 H 24 09/27/19 20:31 108 H 20 09/27/19 20:30 106 H 22 09/27/19 20:01 104 H 22 09/27/19 20:00 104 H 21 09/27/19 19:48 105 H 23 09/27/19 19:44 105 H 20 09/27/19 18:33 37 C 118 H 18 BP BP BP Pulse Ox 09/28/19 12:20 152/72 H 96 09/28/19 12:10 151/79 H 96 09/28/19 12:00 154/85 H 95 09/28/19 11:50 152/81 H 96 09/28/19 11:40 158/97 H 97 09/28/19 11:31 160/87 H 95 09/28/19 07:40 130/73 93 09/28/19 00:45 126/73 94 09/27/19 23:48 132/81 09/27/19 23:18 170/94 H 96 09/27/19 22:31 95 09/27/19 22:30 174/93 H 96 09/27/19 22:23 97 09/27/19 21:01 95 09/27/19 21:00 147/74 H 96 09/27/19 20:31 95 09/27/19 20:30 153/81 H 94 09/27/19 20:01 94 09/27/19 20:00 154/83 H 94 09/27/19 19:48 09/27/19 19:44 141/87 H 09/27/19 18:33 166/93 H 96 Pain Intensity Right Abdomen: Pain Intensity: 10 Transfer of Care Handoff Completed per policy Notes Mental Status: alert / awake / arousable and participated in evaluation Patient Amnestic to Procedure: Yes Nausea / Vomiting: adequately controlled Pain: adequately controlled Airway Patency, RR, SpO2: stable & adequate BP & HR: stable & adequate Hydration State: stable & adequate Anesthetic Complications: no major complications apparent and Pt Satisfied with anesthetic care
[2019-09-28] MEDS: ACETAMINOPHEN 1,000 MG/100 ML VIAL IV PRN (16:48)
[2019-09-28] MEDS ORDERED: CALCIUM CARBONATE 500 MG CHEWABLE TAB PO PRN (20:52)
[2019-09-29] MEDS: HYDROmorphone INJ 1 MG/ML SYRINGE IV PRN ×4 (00:27→19:17)
[2019-09-29 05:08] LABS: Basophils # (auto) 0.01 K/uL (0-0.2); Eosinophils # (auto) 0.01 K/uL (0-0.5); Hematocrit (blood only) 35.4 % (37-47); Hemoglobin 11.8 g/dL (12.0-16.0); Immature Granulocytes # (auto) 0.08 K/uL (0.00-0.02); Immature Granulocytes % (auto) 0.4 %; Lymphocytes # (auto) 1.27 K/uL (1.2-3.4); Lymphocytes % (auto) 6.1 %; Mean Corpuscular Hemoglobin 30.1 pg (25-34); Mean Corpuscular Hgb Conc 33.3 g/dL (32-36); Mean Corpuscular Volume 90.3 fL (80-100); Mean Platelet Volume 8.9 fL (7.4-10.4); Monocytes # (auto) 1.22 K/uL (0.11-0.59); Monocytes % (auto) 5.9 %; Neutrophils # (auto) 18.26 K/uL (1.4-6.5); Neutrophils % (auto) 87.6 %; Platelet Count 231 K/uL (130-400); RDW Coefficient of Variation 13.6 % (11.5-14.5); RDW Standard Deviation 44.9 fL (36.4-46.3); Red Blood Count 3.92 M/uL (4.2-5.4); White Blood Count 20.85 K/uL (4.8-10.8)
[2019-09-29 05:32] LABS: Calcium 8.8 mg/dl (8.5-10.1); Creatinine Clr Calc Pharmacy 89.1 ml/min; Est GFR (African American) 101.4; Est GFR (Non-African American) 87.5; Potassium 4.5 mmol/L (3.5-5.1)
[2019-09-29] MEDS: metroNIDAZOLE 500 MG/100 ML BAG IV SCH ×3 (05:49→21:42)
[2019-09-29] MEDS: SODIUM CHLORIDE 0.9% 1000ML 1,000 ML IV SCH ×2 (05:49→16:11)
[2019-09-29] MEDS: ONDANSETRON INJ 2 MG/ML 2 ML VIAL IV PRN (05:58)
--- NOTE | 2019-09-29 08:21 | Anesthesiology Progress Note ---
Date of Service September 29, 2019 Anesthesia Post Procedure Vital Signs Vital Signs: Temp Pulse Pulse Resp BP BP Pulse Ox 09/29/19 07:45 36.7 C 70 16 133/72 93 09/29/19 03:31 36.6 C 72 16 129/76 94 09/28/19 22:49 36.4 C L 78 16 120/71 94 09/28/19 19:40 36.5 C 84 16 133/74 92 09/28/19 15:33 36.4 C L 85 12 119/70 95 09/28/19 14:34 84 16 123/73 95 09/28/19 13:35 36.7 C 87 16 139/79 95 09/28/19 12:56 90 16 144/79 H 94 09/28/19 12:20 94 H 16 152/72 H 96 09/28/19 12:10 95 H 16 151/79 H 96 09/28/19 12:00 94 H 16 154/85 H 95 09/28/19 11:50 92 H 16 152/81 H 96 09/28/19 11:40 90 16 158/97 H 97 09/28/19 11:31 37.1 C 91 H 16 160/87 H 95 Pain Intensity Right Abdomen: Pain Intensity: 0 Notes Mental Status: alert / awake / arousable and participated in evaluation Nausea / Vomiting: adequately controlled Pain: adequately controlled Airway Patency, RR, SpO2: stable & adequate BP & HR: stable & adequate Hydration State: stable & adequate
--- NOTE | 2019-09-29 08:58 | Surgery Progress Note ---
Date of Service September 29, 2019 Assessment & Plan (1) Appendicitis: continue IV abx increase in WBC expected, H&H likely dilutional-minimal intraop loss and minimal nonbloody drain output expect slow return of bowel function, keep on clears add protonix as above. doing as expected. TYLER serous/cloudy. continue antibiotics. increase activity. Subjective feels tired, no nausea but not much appetite Physical Exam Gastrointestinal (Abdomen): Inspection/Auscultation: + abdomen distended (minimal) and + abdominal surgical drain present (20 cc overnight, mostly serous) Percussion/Palpation: abdomen soft Results & Data Vital Signs (Past 12 Hours) Vital Signs Temp Pulse Resp BP BP Pulse Ox 09/29/19 07:45 36.7 C 70 16 133/72 93 09/29/19 03:31 36.6 C 72 16 129/76 94 09/28/19 22:49 36.4 C L 78 16 120/71 94 PG Care Time/CCT Total # of Minutes Spent Total Time Spent with Patient: Total time spent is greater than 50% in coordination of care (as documented) at patient's floor/unit and/or counseling patient: Coding Level of Care Code None Diagnoses Appendicitis K37 Appendicitis type: unspecified (1) Appendicitis Appendicitis type: unspecified Qualified Code(s): K37 - Unspecified appendicitis
[2019-09-29] MEDS: CIPROFLOXACIN 400 MG/200 ML BAG IV SCH ×2 (10:03→21:42)
[2019-09-29] MEDS: ALUM HYDROX/MAG TRISILICATE CHEW PO PRN ×2 (10:04→16:11)
[2019-09-29] MEDS: PANTOprazole 40 MG TAB PO SCH (10:04)
[2019-09-30 05:29] LABS: Basophils # (auto) 0.02 K/uL (0-0.2); Basophils % (auto) 0.1 %; Eosinophils # (auto) 0.41 K/uL (0-0.5); Eosinophils % (auto) 2.7 %; Hematocrit (blood only) 37.5 % (37-47); Hemoglobin 12.3 g/dL (12.0-16.0); Immature Granulocytes # (auto) 0.09 K/uL (0.00-0.02); Immature Granulocytes % (auto) 0.6 %; Lymphocytes # (auto) 1.64 K/uL (1.2-3.4); Lymphocytes % (auto) 10.6 %; Mean Corpuscular Hemoglobin 29.4 pg (25-34); Mean Corpuscular Hgb Conc 32.8 g/dL (32-36); Mean Corpuscular Volume 89.7 fL (80-100); Mean Platelet Volume 9.1 fL (7.4-10.4); Monocytes # (auto) 1.26 K/uL (0.11-0.59); Monocytes % (auto) 8.2 %; Neutrophils # (auto) 12.03 K/uL (1.4-6.5); Neutrophils % (auto) 77.8 %; Platelet Count 280 K/uL (130-400); RDW Coefficient of Variation 13.6 % (11.5-14.5); Red Blood Count 4.18 M/uL (4.2-5.4); White Blood Count 15.45 K/uL (4.8-10.8)
[2019-09-30] MEDS: metroNIDAZOLE 500 MG/100 ML BAG IV SCH ×3 (05:41→21:50)
[2019-09-30] MEDS: SODIUM CHLORIDE 0.9% 1000ML 1,000 ML IV SCH ×2 (05:41→18:34)
[2019-09-30 06:11] LABS: BUN Creatinine Ratio 17.3 (10-20); Calcium 8.8 mg/dl (8.5-10.1); Creatinine Clr Calc Pharmacy 79.4 ml/min; Est GFR (Non-African American) 81.1; Potassium 3.8 mmol/L (3.5-5.1)
[2019-09-30] MEDS: HYDROmorphone INJ 1 MG/ML SYRINGE IV PRN ×4 (06:19→23:10)
--- NOTE | 2019-09-30 07:56 | Surgery Progress Note ---
Date of Service September 30, 2019 Assessment & Plan (1) Appendicitis: WBC trending down 15 today from 20, patient afebrile overall feels somewhat similar to yesterday continue IV abx continue clear liquids for now until patient feeling better & starting to have bowel function encourage ambulation as above. appears to developing an ileus which is expected/anticipated. will add some simethicone to see if this helps. ambulate TYLER with cloudy drainage. continue IV antibiotics. WBC improving. stay on clears for now. Subjective Feeling similar to yesterday. She is reporting a lot of gas pains, and denies passing flatus or BM yet. She says she is tolerating clears. Has some nausea but no bouts of emesis. Physical Exam Physical Exam: awake/alert Gastrointestinal (Abdomen): Inspection/Auscultation: + abdomen distended, + abdominal surgical incision (some ecchymosis chloe-umbilical incision) and + abdominal surgical drain present (95cc serous output) Percussion/Palpation: + abdomen tender (mild ttp generalized abdomen) and abdomen soft Results & Data Vital Signs (Past 12 Hours) Vital Signs Temp Pulse Resp BP BP Pulse Ox 09/30/19 07:30 36.6 C 77 16 149/65 H 94 09/29/19 23:14 36.6 C 76 16 157/87 H 93 PG Care Time/CCT Total # of Minutes Spent Total Time Spent with Patient: Total time spent is greater than 50% in coordination of care (as documented) at patient's floor/unit and/or counseling patient: Coding Level of Care Code None Diagnoses Appendicitis K37 Appendicitis type: unspecified (1) Appendicitis Appendicitis type: unspecified Qualified Code(s): K37 - Unspecified appendicitis
[2019-09-30] MEDS: PANTOprazole 40 MG TAB PO SCH (08:55)
[2019-09-30] MEDS: CIPROFLOXACIN 400 MG/200 ML BAG IV SCH ×2 (10:35→21:52)
[2019-09-30] MEDS: SIMETHICONE 80 MG CHEW PO PRN (14:36)
[2019-10-01] MEDS: HYDROmorphone INJ 1 MG/ML SYRINGE IV PRN ×3 (03:46→20:02)
[2019-10-01] MEDS: metroNIDAZOLE 500 MG/100 ML BAG IV SCH ×3 (05:47→21:24)
[2019-10-01 07:57] LABS: Basophils # (auto) 0.01 K/uL (0-0.2); Basophils % (auto) 0.1 %; Eosinophils # (auto) 0.25 K/uL (0-0.5); Eosinophils % (auto) 1.9 %; Hemoglobin 12.8 g/dL (12.0-16.0); Immature Granulocytes # (auto) 0.09 K/uL (0.00-0.02); Immature Granulocytes % (auto) 0.7 %; Lymphocytes # (auto) 1.71 K/uL (1.2-3.4); Lymphocytes % (auto) 12.9 %; Mean Corpuscular Hemoglobin 29.8 pg (25-34); Mean Corpuscular Hgb Conc 32.8 g/dL (32-36); Mean Corpuscular Volume 90.7 fL (80-100); Monocytes # (auto) 1.45 K/uL (0.11-0.59); Neutrophils # (auto) 9.73 K/uL (1.4-6.5); Neutrophils % (auto) 73.4 %; Platelet Count 262 K/uL (130-400); RDW Coefficient of Variation 13.4 % (11.5-14.5); RDW Standard Deviation 44.2 fL (36.4-46.3); White Blood Count 13.24 K/uL (4.8-10.8)
--- NOTE | 2019-10-01 08:02 | Surgery Progress Note ---
Date of Service October 01, 2019 Assessment & Plan (1) Appendicitis: afebrile, CBC pending wants to stay on clears continue IV abx for gangrenous appendicitis cipro will cross-cover UTI as above. feeling somewhat better than yesterday. primary issue today is migraine george +bms. less distended. some nausea which she attributes to her GEORGE ESTEE more clear today wbc trending down. afebrile. continue antibiotics. keep estee stay on clears for now will give toradol for GEORGE ( allergy to asa but still takes asa and nsaids) Subjective small BM but still some nausea Physical Exam Gastrointestinal (Abdomen): Inspection/Auscultation: + abdomen distended (slightly) Percussion/Palpation: abdomen soft ESTEE 100 overnight Results & Data Vital Signs (Past 12 Hours) Vital Signs Temp Pulse Resp BP Pulse Ox 10/01/19 07:34 36.7 C 92 H 16 161/71 H 95 09/30/19 23:07 36.6 C 95 H 18 163/84 H 94 PG Care Time/CCT Total # of Minutes Spent Total Time Spent with Patient: Total time spent is greater than 50% in coordination of care (as documented) at patient's floor/unit and/or counseling patient: Coding Level of Care Code None Diagnoses Appendicitis K37 Appendicitis type: unspecified (1) Appendicitis Appendicitis type: unspecified Qualified Code(s): K37 - Unspecified appe ndicitis
[2019-10-01] MEDS ORDERED: KETOROLAC TROMETHAMINE 15 MG/ML VIAL IV PRN (08:47)
[2019-10-01] MEDS: SODIUM CHLORIDE 0.9% 1000ML 1,000 ML IV SCH ×2 (08:54→21:23)
[2019-10-01] MEDS: ONDANSETRON INJ 2 MG/ML 2 ML VIAL IV PRN (08:55)
[2019-10-01] MEDS: CIPROFLOXACIN 400 MG/200 ML BAG IV SCH ×2 (09:29→21:24)
[2019-10-01] MEDS: PANTOprazole 40 MG TAB PO SCH (11:03)
[2019-10-01] MEDS: SIMETHICONE 80 MG CHEW PO PRN (18:33)
[2019-10-02] MEDS: HYDROmorphone INJ 1 MG/ML SYRINGE IV PRN (00:32)
[2019-10-02] MEDS: metroNIDAZOLE 500 MG/100 ML BAG IV SCH ×3 (05:53→21:06)
[2019-10-02 07:22] LABS: Basophils # (auto) 0.03 K/uL (0-0.2); Basophils % (auto) 0.2 %; Eosinophils # (auto) 0.48 K/uL (0-0.5); Immature Granulocytes # (auto) 0.11 K/uL (0.00-0.02); Immature Granulocytes % (auto) 0.9 %; Lymphocytes # (auto) 1.75 K/uL (1.2-3.4); Lymphocytes % (auto) 14.5 %; Mean Corpuscular Hemoglobin 29.5 pg (25-34); Mean Corpuscular Hgb Conc 33.3 g/dL (32-36); Mean Corpuscular Volume 88.5 fL (80-100); Mean Platelet Volume 8.7 fL (7.4-10.4); Monocytes # (auto) 1.27 K/uL (0.11-0.59); Monocytes % (auto) 10.5 %; Neutrophils # (auto) 8.46 K/uL (1.4-6.5); Neutrophils % (auto) 69.9 %; Platelet Count 299 K/uL (130-400); RDW Coefficient of Variation 13.3 % (11.5-14.5); RDW Standard Deviation 43.1 fL (36.4-46.3); Red Blood Count 4.07 M/uL (4.2-5.4)
--- NOTE | 2019-10-02 08:41 | Surgery Progress Note ---
Date of Service October 02, 2019 Assessment & Plan (1) Appendicitis: WBC slowly improving cont IV abx advance diet d/c IVF try [place] as above. continued improvement cont antibiotics full liquids increase activity drain looking better. wbc continues to decrease not ready for d/c yet. Subjective BM, no nausea, slowly feeling better Physical Exam Gastrointestinal (Abdomen): Inspection/Auscultation: + abdominal surgical drain present (30 cc overnight); abdomen not distended Percussion/Palpation: abdomen soft Results & Data Vital Signs (Past 12 Hours) Vital Signs Temp Pulse Pulse Resp BP BP Pulse Ox 10/02/19 07:39 36.5 C 76 18 150/92 H 90 10/01/19 23:01 36.8 C 82 16 151/82 H 95 PG Care Time/CCT Total # of Minutes Spent Total Time Spent with Patient: Total time spent is greater than 50% in coordination of care (as documented) at patient's floor/unit and/or counseling patient: Coding Level of Care Code None Diagnoses Appendicitis K37 Appendicitis type: unspecified (1) Appendicitis Appendicitis type: unspecified Qualified Code(s): K37 - Unspecified appendicitis
[2019-10-02] MEDS: PANTOprazole 40 MG TAB PO SCH (09:10)
[2019-10-02] MEDS: CIPROFLOXACIN 400 MG/200 ML BAG IV SCH ×2 (10:18→22:12)
[2019-10-02] MEDS: HYDROCODONE/ACETAMOPHEN 5/325MG TAB PO PRN ×4 (11:45→20:38)
[2019-10-02] MEDS: SODIUM CHLORIDE 0.9% 1000ML 1,000 ML IV SCH (15:42)
[2019-10-03] MEDS: HYDROCODONE/ACETAMOPHEN 5/325MG TAB PO PRN ×3 (00:39→16:54)
[2019-10-03] MEDS: metroNIDAZOLE 500 MG/100 ML BAG IV SCH ×3 (05:42→21:43)
[2019-10-03] MEDS: ONDANSETRON INJ 2 MG/ML 2 ML VIAL IV PRN (07:39)
[2019-10-03] MEDS: PANTOprazole 40 MG TAB PO SCH (08:57)
[2019-10-03] MEDS: CIPROFLOXACIN 400 MG/200 ML BAG IV SCH ×2 (10:46→21:42)
[2019-10-03 11:04] LABS: Basophils # (auto) 0.02 K/uL (0-0.2); Basophils % (auto) 0.2 %; Eosinophils # (auto) 0.39 K/uL (0-0.5); Eosinophils % (auto) 3.4 %; Hematocrit (blood only) 38.9 % (37-47); Hemoglobin 12.9 g/dL (12.0-16.0); Immature Granulocytes # (auto) 0.12 K/uL (0.00-0.02); Immature Granulocytes % (auto) 1.1 %; Lymphocytes # (auto) 1.77 K/uL (1.2-3.4); Lymphocytes % (auto) 15.6 %; Mean Corpuscular Hemoglobin 29.7 pg (25-34); Mean Corpuscular Hgb Conc 33.2 g/dL (32-36); Mean Corpuscular Volume 89.4 fL (80-100); Mean Platelet Volume 9.1 fL (7.4-10.4); Monocytes % (auto) 7.9 %; Neutrophils # (auto) 8.14 K/uL (1.4-6.5); Neutrophils % (auto) 71.8 %; Platelet Count 347 K/uL (130-400); RDW Coefficient of Variation 13.3 % (11.5-14.5); RDW Standard Deviation 43.9 fL (36.4-46.3); Red Blood Count 4.35 M/uL (4.2-5.4); White Blood Count 11.34 K/uL (4.8-10.8)
--- NOTE | 2019-10-03 11:04 | Surgery Progress Note ---
Date of Service October 03, 2019 Assessment & Plan (1) Appendicitis: continues to improve but not ready for d/c yet deconditioned. will consult pt. ? rehab stay needed. epifanio diet Subjective pt seen walking in hallway. mild nausea this am but ate eggs/toast earlier and now feeling better. +loose bm's. Physical Exam Physical Exam: alert. nad TYLER serous. Results & Data Vital Signs (Past 12 Hours) Vital Signs Temp Pulse Resp BP Pulse Ox 10/03/19 08:06 36.6 C 67 18 148/82 H 95 10/02/19 23:04 36.4 C L 73 16 133/72 97 PG Care Time/CCT Total # of Minutes Spent Total Time Spent with Patient: Total time spent is greater than 50% in coordination of care (as documented) at patient's floor/unit and/or counseling patient: Coding Level of Care Code None Diagnoses Appendicitis K37 Appendicitis type: unspecified (1) Appendicitis Appendicitis type: unspecified Qualified Code(s): K37 - Unspecified appendicitis
[2019-10-03 11:20] LABS: BUN Creatinine Ratio 9.2 (10-20); Calcium 8.8 mg/dl (8.5-10.1); Creatinine Clr Calc Pharmacy 98.2 ml/min; Est GFR (African American) 104.6; Est GFR (Non-African American) 90.3; Potassium 3.2 mmol/L (3.5-5.1)
[2019-10-03] MEDS: POTASSIUM CHLORIDE / WTR 10 MEQ/100 ML PLCT IV SCH ×2 (14:42→16:43)
[2019-10-03] MEDS ORDERED: POTASSIUM CHLORIDE 20 MEQ TABCR PO STA (16:15)
[2019-10-04] MEDS: HYDROmorphone INJ 1 MG/ML SYRINGE IV PRN (00:24)
[2019-10-04] MEDS: SIMETHICONE 80 MG CHEW PO PRN (00:47)
[2019-10-04 06:23] LABS: Basophils # (auto) 0.02 K/uL (0-0.2); Basophils % (auto) 0.2 %; Eosinophils # (auto) 0.43 K/uL (0-0.5); Hematocrit (blood only) 37.9 % (37-47); Hemoglobin 12.4 g/dL (12.0-16.0); Immature Granulocytes # (auto) 0.11 K/uL (0.00-0.02); Lymphocytes # (auto) 1.86 K/uL (1.2-3.4); Lymphocytes % (auto) 17.3 %; Mean Corpuscular Hemoglobin 29.4 pg (25-34); Mean Corpuscular Hgb Conc 32.7 g/dL (32-36); Mean Corpuscular Volume 89.8 fL (80-100); Monocytes # (auto) 1.04 K/uL (0.11-0.59); Monocytes % (auto) 9.6 %; Neutrophils # (auto) 7.32 K/uL (1.4-6.5); Neutrophils % (auto) 67.9 %; Platelet Count 346 K/uL (130-400); RDW Coefficient of Variation 13.4 % (11.5-14.5); RDW Standard Deviation 44.2 fL (36.4-46.3); Red Blood Count 4.22 M/uL (4.2-5.4); White Blood Count 10.78 K/uL (4.8-10.8)
[2019-10-04 06:50] LABS: BUN Creatinine Ratio 6.6 (10-20); Calcium 8.6 mg/dl (8.5-10.1); Creatinine Clr Calc Pharmacy 93.4 ml/min; Est GFR (Non-African American) 88.8; Potassium 3.6 mmol/L (3.5-5.1)
[2019-10-04] MEDS: metroNIDAZOLE 500 MG/100 ML BAG IV SCH ×3 (06:50→22:52)
--- NOTE | 2019-10-04 09:09 | Surgery Progress Note ---
Date of Service October 04, 2019 Assessment & Plan (1) Appendicitis: pod 6 doing ok from surgery but is concerned about her earlier RUE weakness....will consult neurology for opinion regarding that as well as intensifying migraine headaches epifanio diet bowels moving PT does not feel need for rehab goal of d/c sunday pending neurology opinion. (2) Upper extremity weakness: Subjective pt seen. main complaint is worsening "migraine headaches" as well as right arm weakness ealier today....seems to have resolved. has a history of TIA in past as well as right carotid surgery. also has migraines at home but worse here. mild nausea but no emesis. epifanio diet though appetite not great. Physical Exam Physical Exam: alert. nad seems to me to have good ROM of RUE as well as equal strenght b/l. abd: soft. wounds look good. expected tenderness. TYLER serous. Results & Data Vital Signs (Past 12 Hours) Vital Signs Temp Pulse Resp BP BP Pulse Ox 10/04/19 07:45 36.6 C 75 16 160/82 H 97 10/03/19 23:05 36.5 C 82 16 160/77 H 96 10/03/19 21:20 36.4 C L 76 16 165/88 H 95 PG Care Time/CCT Total # of Minutes Spent Total Time Spent with Patient: Total time spent is greater than 50% in coordination of care (as documented) at patient's floor/unit and/or counseling patient: Coding Level of Care Code None Diagnoses Appendicitis K37 Appendicitis type: unspecified Upper extremity weakness R29.898 (1) Appendicitis Appendicitis type: unspecified Qualified Code(s): K37 - Unspecified appendicitis
[2019-10-04] MEDS: HYDROCODONE/ACETAMOPHEN 5/325MG TAB PO PRN ×2 (10:43→22:53)
[2019-10-04] MEDS: CIPROFLOXACIN 400 MG/200 ML BAG IV SCH ×2 (10:44→22:51)
[2019-10-04] MEDS: PANTOprazole 40 MG TAB PO SCH (10:44)
[2019-10-04] MEDS: ALUM HYDROX/MAG TRISILICATE CHEW PO PRN ×2 (11:03→20:54)
--- NOTE | 2019-10-04 12:34 | Neurology Consultation ---
Date of Consultation October 04, 2019 Assessment & Plan (1) Upper extremity weakness: A 74-year-old woman admitted for acute appendicitis noting right upper extremity weakness x3 days with increased migraine headaches. She has a longstanding history of migraine headaches with visual aura as well as sensory aura. Reporting headaches and aura is similar to previous. On examination she has very mild right shoulder abduction weakness compared to the left. She is also noting some sensory changes in the right hand which appear to be in the median distribution with thenar atrophy suggestive of probable carpal tunnel in the right hand. She is currently on Plavix with known history of a right carotid endarterectomy. Not on migraine prophylactic medications at home. It is not unreasonable that given her acute illness that her migraines may be flared up. While inpatient I would recommend magnesium 1 g IV, Reglan 10 mg IV, and Toradol 30 mg IV every 8 hours as needed for migraine headache. I also discussed obtaining an MRI brain while inpatient given the right upper extremity weakness. Patient stated she was able to obtain an closed MRI due to claustrophobia. In that case I would recommend a CT head noncontrast for further evaluation. I did provide the patient with my contact card and information. I did discuss that is she would benefit from neurology follow-up as an outpatient to manage her migraines in the long-term. The patient agreed to plan of care had no further questions this time. (2) Migraine headache with aura: History of Present Illness Attending Physician: Samuel Anthony, DO History of Present Illness A pleasant 74-year-old woman with history of migraine headache with aura currently admitted for acute appendicitis. She noticed since her admission she has had increased migraine headaches similar to her previous migraines with visual aura as well as some sensory disturbance in her upper extremity reports similar symptoms in the past although she states she has not had these symptoms in quite some time. Noticing sensory changes in the right hand particularly in digits 1 through 3 as well pain in the right thenar eminence. Also complains of a headache associated with photophobia as well as a visual disturbance disturbance in her right eye which she describes as a fortification spectrum or a scotoma. She does confirm that the symptoms are similar to her previous symptoms with migraine with aura. She denies any history of stroke. 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 Plavix daily. He denies any symptoms in her lower extremities denies any symptoms in her left arm. She denies any speech changes. Denies any sensory changes to the left side of her face. She does have claustrophobia and states she is not able to get an MRI brain as it is an open scanner. Allergies Allergy/AdvReac Type Severity Reaction Status Date / Time aspirin Allergy Severe Anaphylaxis Verified 09/22/19 11:01 lisinopril Allergy Severe Difficulty Verified 09/22/19 11:01 Swallowing amlodipine [From Norvasc] Allergy Intermediate LEG Verified 09/22/19 11:01 SWELLING hydrochlorothiazide Allergy Intermediate Hives Verified 09/22/19 11:01 Lpioole-Rdm-Uqt Reductase Allergy Intermediate EFFECTED Verified 09/22/19 11:01 Inhibitor LIVER ENZYMES codeine Allergy Unknown Unverified 09/27/19 19:29 amoxicillin [From Augmentin] AdvReac Vomiting Unverified 09/27/19 19:30 clavulanic acid AdvReac Vomiting Unverified 09/27/19 19:30 [From Augmentin] Home Medications Home Medications Medication Instructions Recorded Confirmed Type coenzyme Q10 [CoQ-10] 100 mg PO QAM 01/21/19 09/27/19 History diclofenac sodium 4 g TOPICAL QID PRN 01/21/19 09/27/19 History garlic 400 mg PO QPM 01/21/19 09/27/19 History metoprolol succinate 25 mg PO QPM 01/21/19 09/27/19 History omega 0-cwx-cpk-fish oil [Fish Oil] 1 cap PO QAM 01/21/19 09/27/19 History diphenhydramine HCl [Benadryl] 25 mg PO Q8H PRN #90 cap 03/26/19 09/27/19 Rx epinephrine [EpiPen] 0.3 mg IM Q3H PRN #1 ea 03/26/19 09/27/19 Rx Gaviscon 30 ml PO PCHS PRN 06/26/19 09/27/19 History Probiotic 3,000 mmu cells PO QAM 06/26/19 09/27/19 History calcium carbonate [Tums] 200 mg PO BID PRN 06/26/19 09/27/19 History cetirizine [Zyrtec] 10 mg PO HS 06/26/19 09/27/19 History cholecalciferol (vitamin D3) 1,000 unit PO QAM 06/26/19 09/27/19 History [Vitamin D3] furosemide 10 mg PO Q OTHER DAY 06/26/19 09/27/19 History multivitamin 1 tab PO QDL 06/26/19 09/27/19 History omeprazole 20 mg PO QAM 06/26/19 09/27/19 History Christy-C with Bioflavonoids 1 tab PO QAM 08/06/19 09/27/19 History clopidogrel [Plavix] 75 mg PO QAM 08/06/19 09/27/19 History acetaminophen [Tylenol 8 Hour] 650 mg PO Q6H PRN #20 tab 09/23/19 09/27/19 Rx ciprofloxacin HCl [Cipro] 500 mg PO BID #14 tab 10/03/19 Rx hydrocodone-acetaminophen [Welsh] 1 - 2 tab PO .every 4-6 hours PRN 10/03/19 Rx #15 tab metronidazole [Flagyl] 500 mg PO TID #21 tab 10/03/19 Rx Patient History Medical History Cardiac murmur GERD (gastroesophageal reflux disease) Hx of sepsis HOSPITALIZED 03/2019 "CAUSED POSSIBLY BY LISINOPRIL/HCTZ AND DAILY ASA" Hyperlipidemia Hypertension Migraine Osteoarthritis PVD (peripheral vascular disease) Transient ischemic attack (TIA) "YEARS AGO" NO RECENT EPISODES Surgical History History of anesthesia reaction SLOW TO WAKE UP History of carotid endarterectomy RT 2013 History of cataract surgery RT/LEFT History of colonoscopy History of esophagogastroduodenoscopy (EGD) History of tooth extraction Family History Other Family history non-contributory Social History Preferred Language: Kiswahili Communication Ability: Effective Emt Paramedic Required: No Beliefs That Will Affect Care: None marital status: / Current Living Situation: Family Feels Safe at Home: Yes Smoking Status: Never smoker Second Hand Exposure: No ; Hx Alcohol Use: No Hx Substance Use: No Physical Exam Physical Exam: EXAM: Constitutional: appearance normally developed, well nourished and non-obeseHead and Face: normocephalic and atraumatic Eyes: normal lids, normal conjunctiva Neck: supple, venous right CEA scar respiratory: normal effort Cardiovascular: normal pulses Abdomen: non distended Skin: no rashes Psychiatric: normal judgement and insight, normal mood and normal affect NEUROLOGIC EXAMINATION: Appearance: no acute distress Orientation: awake, alert and oriented x 3 Mental Status: alert Memory: registration 3 and recall 3/3 Attention: normal Knowledge: appropriate Language: no aphasia Speech: no dysarthria Cranial Nerves: CN 2 - no visual defect on confrontation and pupils round, equal, reactive to light CN 3, 4, 6 - extra-ocular movements intact and no nystagmus CN 5 - facial sensation intact CN 7 - no facial asymmetry CN 8 - intact hearing CN 9, 10 - palate symmetric CN 11 - good shoulder shrug CN 12 - tongue midline Gait: stable, no ataxia and can perform tandem walking Coordination: no ataxia with finger to nose testing and heel to jarvis testing Sensory: intact and symmetric to light touch muscle Tone: normal Muscle exam: 5 out of 5 throughout except for right shoulder abduction 4+/5 on right reflexes: No ankle clonus, negative Afsaneh sign bilateral Results & Data Vital Signs (Past 12 Hours) Vital Signs Temp Pulse Resp BP Pulse Ox 10/04/19 07:45 36.6 C 75 16 160/82 H 97
[2019-10-05] MEDS: metroNIDAZOLE 500 MG/100 ML BAG IV SCH ×3 (05:21→22:29)
[2019-10-05 06:45] LABS: Basophils # (auto) 0.02 K/uL (0-0.2); Basophils % (auto) 0.2 %; Eosinophils # (auto) 0.37 K/uL (0-0.5); Eosinophils % (auto) 3.6 %; Hematocrit (blood only) 37.6 % (37-47); Hemoglobin 12.5 g/dL (12.0-16.0); Immature Granulocytes # (auto) 0.12 K/uL (0.00-0.02); Immature Granulocytes % (auto) 1.2 %; Lymphocytes # (auto) 1.48 K/uL (1.2-3.4); Lymphocytes % (auto) 14.3 %; Mean Corpuscular Hemoglobin 29.3 pg (25-34); Mean Corpuscular Hgb Conc 33.2 g/dL (32-36); Mean Corpuscular Volume 88.1 fL (80-100); Mean Platelet Volume 8.5 fL (7.4-10.4); Monocytes # (auto) 1.14 K/uL (0.11-0.59); Neutrophils # (auto) 7.24 K/uL (1.4-6.5); Neutrophils % (auto) 69.7 %; Platelet Count 382 K/uL (130-400); RDW Coefficient of Variation 13.5 % (11.5-14.5); RDW Standard Deviation 43.5 fL (36.4-46.3); Red Blood Count 4.27 M/uL (4.2-5.4); White Blood Count 10.37 K/uL (4.8-10.8)
[2019-10-05 07:25] LABS: BUN Creatinine Ratio 8.4 (10-20); Creatinine Clr Calc Pharmacy 89.1 ml/min; Est GFR (African American) 101.4; Est GFR (Non-African American) 87.5; Potassium 3.6 mmol/L (3.5-5.1)
[2019-10-05] MEDS: HYDROCODONE/ACETAMOPHEN 5/325MG TAB PO PRN ×3 (09:39→20:05)
[2019-10-05] MEDS: PANTOprazole 40 MG TAB PO SCH (09:39)
[2019-10-05] MEDS: CIPROFLOXACIN 400 MG/200 ML BAG IV SCH ×2 (10:28→22:29)
--- NOTE | 2019-10-05 10:35 | Surgery Progress Note ---
Date of Service October 05, 2019 Assessment & Plan (1) Appendicitis: Postoperative day #7 status post appendectomy Doing well from surgical standpoint Plan is for probable discharge tomorrow Appreciate neurology note, not having headache today Continue ambulation Encouraged p.o. intake Subjective Postoperative day #7 status post laparoscopic appendectomy Tolerating regular diet No nausea or vomiting Bowels are moving Had no headache today Appreciate neurology note Tatum had 35 cc out yesterday and 5 cc out over previous shift, serosanguineous Physical Exam Gastrointestinal (Abdomen): Inspection/Auscultation: normal bowel sounds and + abdominal surgical incision (Clean, dry and intact); abdomen not distended Percussion/Palpation: abdomen soft; abdomen nontender Results & Data Vital Signs (Past 12 Hours) Vital Signs Temp Pulse Resp BP BP Pulse Ox 10/05/19 07:48 36.3 C L 70 18 144/79 H 98 10/04/19 23:31 36.4 C L 76 16 162/75 H 94 (1) Appendicitis Appendicitis type: unspecified Qualified Code(s): K37 - Unspecified appendicitis
--- NOTE | 2019-10-05 11:51 | CT Scan Report ---
CT SCAN OF THE BRAIN WITHOUT IV CONTRAST CLINICAL HISTORY: Headache. Right upper extremity weakness. COMPARISON STUDY: CT of the brain dated 07/06/2017. TECHNIQUE: Unenhanced axial CT scan of the brain is performed from the vertex to the skull base. A do se lowering technique was utilized adhering to the principles of ALARA. CT DOSE: 708.59 mGycm FINDINGS: Brain parenchyma: There are age-related involutional changes noting mild subcortical and periventric ular microangiopathic change. There is no hemorrhage, mass effect, or evidence of acute territorial i schemia by CT criteria. Espino-white matter differentiation is preserved. No extra-axial fluid collecti on is seen. Ventricles, sulci, cisterns: Prominent secondary to involutional change. Intracranial vasculature: There is atherosclerotic calcification of the cavernous carotid and vertebr al arteries. Calvarium: Unremarkable. Sinuses and mastoids: There is an air-fluid level and secretions present within the right maxillary a ntrum. The remaining visualized paranasal sinuses are clear. The mastoid air cells are well pneumatiz ed. Orbits: The bony orbits are grossly intact. There are bilateral ocular lens implants. IMPRESSION: 1. There is no hemorrhage, mass effect, or evidence of acute territorial ischemia by CT criteria. 2. Right maxillary sinus disease as above. ACT 112: Negative or not required by law. Electronically signed by: Ángel Wilkinson M.D. 10/05/2019 11:50 AM
[2019-10-06] MEDS: metroNIDAZOLE 500 MG/100 ML BAG IV SCH ×2 (06:05→14:02)
[2019-10-06] MEDS: PANTOprazole 40 MG TAB PO SCH (08:55)
[2019-10-06] MEDS: HYDROCODONE/ACETAMOPHEN 5/325MG TAB PO PRN (08:59)
--- NOTE | 2019-10-06 09:35 | Surgery Progress Note ---
Date of Service October 06, 2019 Assessment & Plan (1) Appendicitis: POD#8 laparoscopic appendectomy - patient continues to improve - CT head yesterday revealed no hemorrhage, mass effect, or evidence of acute territorial ischemia; had neurologist office information to schedule f/u appt for headaches - tolerating a diet - still having some abdominal gas, but is passing flatus and having BM's - will remove TYLER drain today - anticipate discharge to home today on 1 wk course of po abx - will ask patient to follow up in clinic within 1-2 weeks for a post op check as above. doing well. ok for d/c. instructions given. Subjective Patient feeling well. Still has some abdominal gas and is taking gas-ex prn. Continues to pass flatus and have BM's. Tolerating a diet. Physical Exam Physical Exam: awake/alert Constitutional: no acute distress Gastrointestinal (Abdomen): Inspection/Auscultation: + abdominal surgical incision (c/d/i, some ecchymosis chloe supraumbilical incision) Percussion/Palpation: abdomen soft Results & Data Vital Signs (Past 12 Hours) Vital Signs Temp Pulse Resp BP Pulse Ox 10/05/19 22:51 36.5 C 81 16 166/65 H 95 PG Care Time/CCT Total # of Minutes Spent Total Time Spent with Patient: Total time spent is greater than 50% in coordination of care (as documented) at patient's floor/unit and/or counseling patient: Coding Level of Care Code None Diagnoses Appendicitis K37 Appendicitis type: unspecified (1) Appendicitis Appendicitis type: unspecified Qualified Code(s): K37 - Unspecified appendicitis
[2019-10-06] MEDS: ALUM HYDROX/MAG TRISILICATE CHEW PO PRN (10:09)
[2019-10-06] MEDS: CIPROFLOXACIN 400 MG/200 ML BAG IV SCH (11:08)
--- NOTE | 2019-10-07 10:32 | Discharge Summary ---
Date of Service October 07, 2019 Admission HPI Per Admitting Provider 74 y/o WF about a week s/p lap keli by Dr. Lovell who also had a biliary stent placed began having RLQ pain yesterday am. progressed through the day. presented to ER last night and CT shows acute appendicitis. Principal Diagnosis Acute appendicitis h/o choledocholithiasis Discharge Exam Constitutional no acute distress Gastrointestinal (Abdomen) Inspection/Auscultation: + abdominal surgical incision (c/d/i, some ecchymosis of supraumbilical incision) and + abdominal surgical drain present (serous; removed prior to discharge) Percussion/Palpation: abdomen soft Discharge Data Allergies Allergy/AdvReac Type Severity Reaction Status Date / Time aspirin Allergy Severe Anaphylaxis Verified 09/22/19 11:01 lisinopril Allergy Severe Difficulty Verified 09/22/19 11:01 Swallowing amlodipine [From Norvasc] Allergy Intermediate LEG Verified 09/22/19 11:01 SWELLING hydrochlorothiazide Allergy Intermediate Hives Verified 09/22/19 11:01 Ltbvici-Onq-Hsc Reductase Allergy Intermediate EFFECTED Verified 09/22/19 11:01 Inhibitor LIVER ENZYMES codeine Allergy Unknown Unverified 09/27/19 19:29 amoxicillin [From Augmentin] AdvReac Vomiting Unverified 09/27/19 19:30 clavulanic acid AdvReac Vomiting Unverified 09/27/19 19:30 [From Augmentin] Consultations 09/27/19 22:29 ED Decision to Admit Stat 10/04/19 09:02 Consult Neurology Routine Procedures Performed Operation Date: 09/28/19 07:05 Actual Procedures p Laparoscopic Appendectomy - Samuel Anthony, DO s Endoscopic Retrograde Cholangiopancreatoscopy; removal biliary stent - Jennifer Weston MD Ordered Studies 09/27/19 18:52 CT abd pelvis oral and IV con Stat 09/28/19 09:11 FL ERCP biliary ductal Routine 10/05/19 10:56 CT head/brain wo con Routine Hospital Course (1) Appendicitis: This is a 74y F who presented to the [facility] ED on 09/27/19 with abdominal pain. Workup revealed findings concerning for appendicitis. Of note the patient did have a biliary stent and underwent a laparoscopic cholecystectomy on 09/23. Surgery evaluated the patient and deemed her a candidate for surgical intervention. Patient's surgery was coordinated on the same day (09/28) with GI who performed an ERCP with stent removal prior to her laparoscopic appendectomy. The patient tolerated the procedure well, see operative report for full details. She was transferred to the nursing floor in stable condition with a TYLER drain and she remained on IV cipro/flagyl. Post operatively she developed an ileus and she remained on clear liquids until return of bowel function. Once she started passing flatus and having bowel movements her diet was slowly advanced as tolerated. On pod#6 she developed a migraine and also had complaints of right upper extremity weakness. Neurology was consulted and ordered a head CT which was negative. Her RUE weakness & migraine improved and she was asked to follow up in outpt neurology clinic for follow up. She worked with PT/OT who cleared her for home. On POD#8 her TYLER drain was removed, she was tolerating a regular diet, pain managed on prn medication, incisions c/d/i, ambulating independently, and she was deemed stable for discharge to home. She was discharged on a wk course of oral antibiotic and was instructed to follow up in surgery clinic within 1-2 weeks. Total Time Total Time Spent Total Time Spent (In Minutes): 10 Discharge Plan Discharge Items Patient Disposition: Home - Self-Care Reason For Visit: APPENDICITIS Discharge Diagnosis: acute appendicitis Activity: Per Instructions section Lifting: No more than 10 pounds Bathing Comment: may shower. no soaking in tubs Exercise/Sports: Wait until after follow-up appointment Driving/Machine Use: do not resume driving while taking narcotic for pain Non-emergency contact: Surgeon Call non-emergency contact if: you have any medication questions, your symptoms worsen, your pain is not controlled, your pain is worsening, you have a fever, your temperature is above 101.5, your wound has increased redness, your wound has increased drainage and your wound pain has increased Follow-up/Referrals: Samuel Anthony DO [Surgeon] - 10/20/19 1:30 pm (Your follow up appointment is in clinic within 2 weeks. If you need to change this appointment, please call [phone].) Mercedes Kilgore DO [Primary Care Provider] - 10/07/19 11:05 am (Your appointment will be with Dr Zhu at the [facility]. If you need to change this appointment, please call [phone].) Diet: Regular Addtl Attending Provider Instructions: Addtl [employer] Provider Instructions: Please complete your full course of antibiotics Please note that both Tylenol and the narcotic [place] both contain Acetaminophen. Please do NOT exceed 3grams of Acetaminophen within a 24 hour time period. Pending Studies at Discharge: Yes Studies:: surgical pathology Stand-Alone Forms: Call Back Authorization, [facility], Smoking Cessation Medications and DC Order Prescriptions: New ciprofloxacin HCl [Cipro] 500 mg tablet 500 mg PO BID Qty: 14 RF: 0 metronidazole [Flagyl] 500 mg tablet 500 mg PO TID Qty: 21 RF: 0 hydrocodone-acetaminophen [[place]] 5-325 mg tablet 1 - 2 tab PO .every 4-6 hours PRN (Reason: pain, for initial therapy. Max 8 per day) Qty: 15 RF: 0 Continued metoprolol succinate 25 mg Tablet Extended Release 24 Hr 25 mg PO QPM RF: 0 garlic 400 mg Tablet 400 mg PO QPM RF: 0 coenzyme Q10 [CoQ-10] 100 mg Capsule 100 mg PO QAM RF: 0 diclofenac sodium 1 % Gel 4 g TOPICAL QID PRN (Reason: KNEE PAIN) RF: 0 omega [id number]-ftb-fish oil [Fish Oil] 1,000 mg (120 mg-180 mg) Capsule 1 cap PO QAM RF: 0 multivitamin Tablet 1 tab PO QDL RF: 0 Gaviscon 95-358 mg/15 mL Suspension 30 ml PO PCHS PRN (Reason: Indigestion) RF: 0 cetirizine [Zyrtec] 10 mg Tablet 10 mg PO HS RF: 0 calcium carbonate [Tums] 200 mg calcium (500 mg) Tablet,Chewable 200 mg PO BID PRN (Reason: Indigestion) RF: 0 furosemide 20 mg Tablet 10 mg PO Q OTHER DAY RF: 0 cholecalciferol (vitamin D3) [Vitamin D3] 1,000 unit Capsule 1,000 unit PO QAM RF: 0 omeprazole 20 mg Tablet,Delayed Release (Dr/Ec) 20 mg PO QAM RF: 0 Probiotic 3 billion cell Capsule 3,000 mmu cells PO QAM RF: 0 diphenhydramine HCl [Benadryl] 25 mg capsule 25 mg PO Q8H PRN (Reason: itching) Qty: 90 RF: 0 epinephrine [EpiPen] 0.3 mg/0.3 mL auto-injector 0.3 mg IM Q3H PRN (Reason: anaphylaxis) Qty: 1 RF: 3 Christy-C with Bioflavonoids 500-200 mg Tablet 1 tab PO QAM RF: 0 clopidogrel [Plavix] 75 mg tablet 75 mg PO QAM RF: 0 acetaminophen [Tylenol 8 Hour] 650 mg tablet extended release 650 mg PO Q6H PRN (Reason: pain) Qty: 20 RF: 0 Discharge Orders: Discharge Order (Routine); Ordered 10/06/19 Ordered By: Ny Gilliland/Other Patient Handouts: Appendectomy, After an Appendectomy, Appendx Surg, Appendectomy Laparoscopic Dc Admission Data Admit Date/Time: 09/27/19 22:47 Attending Provider: Samuel Anthony Admit Provider: Samuel Anthony Primary Care Provider: Mercedes Kilgore Other Providers: Samuel Anthony ; Lesly Posada Other Interventions: Discharge Summary Assessment (RN) Last Done: 10/06/19 14:49 DC Date/Time DO NOT enter until pt leaves facility: 10/06/19 16:21 Coding Level of Care Code D/C Day Management <30 mins Diagnoses Appendicitis K37 Appendicitis type: unspecified
== END 2019-10-06 16:21 | disposition home or self-care (01) | DRG 342 ==
LOC: ED 18:18 → 3N 22:47

== ENCOUNTER 2020-09-14 18:11 | Inpatient (IN) ==
[2020-09-14] MEDS ORDERED: SODIUM CHLORIDE 0.9% 1000ML 1,000 ML IV SCH (18:30)
[2020-09-14 18:45] LABS: Basophils # (auto) 0.02 K/uL (0-0.2); Basophils % (auto) 0.2 %; Eosinophils # (auto) 0.41 K/uL (0-0.5); Eosinophils % (auto) 4.5 %; Hematocrit (blood only) 42.6 % (37-47); Hemoglobin 14.2 g/dL (12.0-16.0); Immature Granulocytes # (auto) 0.02 K/uL (0.00-0.02); Immature Granulocytes % (auto) 0.2 %; Lymphocytes # (auto) 2.31 K/uL (1.2-3.4); Lymphocytes % (auto) 25.3 %; Mean Corpuscular Hemoglobin 30.5 pg (25-34); Mean Corpuscular Hgb Conc 33.3 g/dL (32-36); Mean Corpuscular Volume 91.6 fL (80-100); Mean Platelet Volume 10.2 fL (7.4-10.4); Monocytes # (auto) 0.81 K/uL (0.11-0.59); Monocytes % (auto) 8.9 %; Neutrophils # (auto) 5.57 K/uL (1.4-6.5); Neutrophils % (auto) 60.9 %; Platelet Count 284 K/uL (130-400); RDW Coefficient of Variation 13.2 % (11.5-14.5); Red Blood Count 4.65 M/uL (4.2-5.4); White Blood Count 9.14 K/uL (4.8-10.8)
[2020-09-14 18:46] LABS: iSTAT Creatinine 0.8 mg/dl (0.6-1.3); iSTAT Hemoglobin 14.6 g/dl (12.0-16.0); iSTAT Ionized Calcium 1.25 mmol/l (1.12-1.32)
--- NOTE | 2020-09-14 18:49 | XRay Report ---
XR chest 1V portable HISTORY: 74 years-old Female Stroke Like Symptoms acute strokelike symptoms COMPARISON: Chest radiograph 03/25/2019 TECHNIQUE: Portable AP view the chest FINDINGS: Cardiac silhouette is mildly enlarged. Calcified plaque of the thoracic aorta. No pneumothorax, pleur al effusion, airspace consolidation or overt pulmonary edema. Bones of the chest appear grossly intac t. IMPRESSION: No acute process. ACT 112: Negative or not required by law. The above report was generated using voice recognition software. It may contain grammatical, syntax o r spelling errors. Electronically signed by: William Llanos M.D. 09/14/2020 6:47 PM
[2020-09-14 19:06] LABS: Appearance Urine Cloudy (Clear); Bacteria Urine Automated 1+ (Negative); Bilirubin Urine Negative (Negative); Blood Urine Negative (Negative); Color Urine Yellow; Glucose Urine UA Negative (Negative); Ketones Urine Negative (Negative); Leukocyte Esterase Urine 1+ (Negative); Nitrite Urine Negative (Negative); Protein Urine Negative (Negative); RBC Urine Automated 0-4 /hpf (0-4); Specific Gravity Urine 1.018 (1.000-1.030); Urobilinogen Urine Negative (Negative); WBC Urine Automated >30 /hpf (0-5)
[2020-09-14 19:09] LABS: Partial Thromboplastin Ratio 0.9; Partial Thromboplastin Time 25.7 Seconds (21.0-31.0); Prothrombin Time 10.5 Seconds (9.0-12.0)
[2020-09-14 19:13] LABS: Alanine Aminotransferase 24 U/L (12-78); Albumin Globulin Ratio 0.9 (0.9-2); Albumin Level 3.5 gm/dl (3.4-5.0); Alkaline Phosphatase 103 U/L (45-117); Aspartate Aminotransferase 19 U/L (15-37); BUN Creatinine Ratio 21.3 (10-20); Bilirubin,Total 0.6 mg/dl (0.2-1); Blood Urea Nitrogen 19 mg/dl (7-18); Calcium 9.1 mg/dl (8.5-10.1); Carbon Dioxide 29 mmol/L (21-32); Chloride 108 mmol/L (98-107); Creatinine Clr Calc Pharmacy 63.9 ml/min; Est GFR (Non-African American) 62.2; Globulin 3.9 gm/dl (2.5-4.0); Glucose 108 mg/dl (70-99); Potassium 3.9 mmol/L (3.5-5.1); Sodium 141 mmol/L (136-145); Total Protein 7.4 gm/dl (6.4-8.2); Troponin I < 0.015 ng/ml (0-0.045)
--- NOTE | 2020-09-14 19:13 | Emergency Department Note ---
Impression & Plan Confusion, Hypertension, Amnesia/memory disorder ED Provider Note INFORMANT: Patient, daughter ED PROVIDER(S): Ace Resendez MD CHIEF COMPLAINT: Memory loss PLAN: Disposition: Admitted Condition: Good MEDICAL DECISION MAKING: Patient presented to the emergency department because of memory issues and confusion. She had a work-up performed. She was seen promptly and an i-STAT revealed normal creatinine. She sent emergently for CT imaging. This revealed no evidence of acute intracranial finding. She had a stenosis noted in the left vertebral and mild stenosis in the carotid however no acute problems were seen. The patient had an unremarkable CBC and chemistry panel. Her ECG showed a normal sinus rhythm. The patient did have some urinary symptoms and a urinalysis was performed. There was some concerns for infection. The patient was given a dose of IV Rocephin. She was gently hydrated. I discussed further management in the hospital. The patient and daughter were in agreement. I did consult with Dr. Chapa of neurology and it seems to be consistent with a TGA. Given the possible UTI other factors could be at work. She did recommend further management in the hospital. Consultation was placed with Dr. Batres, [facility] hospitalist service. Patient was admitted for further management. Triage Nursing notes reviewed and agree them. Additional history obtained from patient's daughter. Vital Signs: reviewed and remarkable for hypertension. Differential diagnosis: TIA, CVA, TGA, hypertensive encephalopathy, infection, dehydration, metabolic abnormality, hypo/hyperglycemia, electrolyte disturbance, anemia, hypoxia, cardiac sources, intracerebral event, toxicologic, neurologic, as well as other pathologies. Diagnostics interpreted by me: ECG: Twelve-lead ECG reveals normal sinus rhythm at 82 bpm. Anterior and inferior Q waves. No ST elevation or depression. Normal QRS and axis. Cardiac Monitoring: Cardiac monitoring ordered by me: The patient was placed on continuous cardiac monitoring and observed. It revealed a normal sinus rhythm at 89 beats per minute without ectopy or evidence of dysrhythmia. Imaging studies: CT angiography revealed no evidence of acute intracranial findings. Stenosis in volving the left vertebral as well as the internal carotid noted. I refer you to the EMR for further details. Imaging studies: Chest x-ray. Findings: A chest x-ray was performed and revealed no pneumothorax, effusion, infiltrate, pulmonary edema, free air under the diaphragm, or wide mediastinum. Impression: No acute disease. Consultation(s): [facility] neurology [facility] Hospitalist service HPI: The patient is a 74 year old female who presents to the Emergency Room with complaints of memory loss. This started today around 11 AM and is persisting per the daughter. Daughter notes no speech issues. Patient had a history of hypertension, TGA, and carotid endarterectomy. The patient also notes the following associated symptoms, some burning with urination. The patient has taken no medication for relieving factors. Current pain is rated as 0/10. Pt denies LOC, headache, fevers, chills, diaphoresis, visual changes, neck pain, chest pain, breathing difficulties, nausea, vomiting, abdominal pain, back pain, melena, hematochezia, numbness, weakness, lymphadenopathy, rash, or other complaints. ROS: See above HPI for pertinent positives & negatives. A total of 10 systems reviewed and were otherwise negative. PAST MEDICAL HISTORY:See Below , hypertension, TGA, peripheral vascular disease PAST SURGICAL HISTORY:See Below, carotid endarterectomy FAMILY HISTORY:See Below SOCIAL HISTORY:See Below, lives with family HOME MEDICATIONS:See Below ALLERGIES:See Below VITALS:See Below PHYSICAL EXAMINATION: GENERAL: Awake, alert, well-appearing, in no distress HENT: Normocephalic, atraumatic. Oropharynx unremarkable. EYES: Normal conjunctiva. Sclera non-icteric. PERRLA. EOMI. NECK: Inspection normal. Non-tender. Supple. No nuchal rigidity. FROM. No masses. RESPIRATORY: Clear to auscultation. No wheezes. No rales. Normal respiratory effort. CARDIAC: Normal rate. Normal rhythm. No murmurs. No rubs. Extremities warm and well perfused. Pulses equal. No JVD. GI: Soft, non-distended. No tenderness to palpation. No rebound or guarding. No masses. RECTAL: Deferred. MUSCULOSKELETAL: Atraumatic. Chest examination reveals no tenderness. The back is symmetrical on inspection without obvious abnormality. There is no CVA tenderness to palpation. No joint edema. LOWER EXTREMITIES: Calves are equal size bilaterally and non-tender. No edema. No discoloration. NEURO: Normal sensorium. No focal sensory or motor deficits noted. normal rapid alternating movements. No drift. Cranial nerves II through XII intact. Speech normal. SKIN: No rash or jaundice noted. Ace Resendez MD Past Med/Surg History Medical History (Updated 09/14/20 @ 19:10 by Ace Resendez MD) Cardiac murmur GERD (gastroesophageal reflux disease) Hx of sepsis HOSPITALIZED 03/2019 "CAUSED POSSIBLY BY LISINOPRIL/HCTZ AND DAILY ASA" Hyperlipidemia Hypertension Migraine Osteoarthritis PVD (peripheral vascular disease) Transient ischemic attack (TIA) "YEARS AGO" NO RECENT EPISODES Surgical History (Updated 10/20/19 @ 14:14 by Samuel Anthony DO) History of anesthesia reaction SLOW TO WAKE UP History of carotid endarterectomy RT 2013 History of cataract surgery RT/LEFT History of colonoscopy History of esophagogastroduodenoscopy (EGD) History of tooth extraction S/P appy appendectomy Dr. Anthony 09-27-19 S/P cholecystectomy Dr. Lovell Sep 2019 Family History (Updated 10/20/19 @ 13:34 by Lina Thompson, ROXANNA) Mother Heart disease Hypertension Father Heart disease Sister Heart disease Hypertension Other Family history non-contributory Social History (Updated 10/20/19 @ 13:34 by Lina Thompson, RN) Smoking Status: Never smoker Second Hand Exposure: No; Hx Alcohol Use: No Hx Substance Use: No Preferred Language: French Communication Ability: Effective Protective Signal Superintendent Required: No Beliefs That Will Affect Care: None marital status: / Current Living Situation: Family current occupational status: retired Feels Safe at Home: Yes Safety Concerns: Feels Safe At This Time Assistive Devices: Cane and Glasses Allergies Allergies Allergy/AdvReac Type Severity Reaction Status Date / Time aspirin Allergy Severe Anaphylaxis Verified 09/14/20 21:03 lisinopril Allergy Severe Difficulty Verified 09/14/20 21:03 Swallowing amlodipine [From Norvasc] Allergy Intermediate LEG Verified 09/14/20 21:03 SWELLING hydrochlorothiazide Allergy Intermediate Hives Verified 09/14/20 21:03 Mmbkbhv-Cqb-Oga Reductase Allergy Intermediate EFFECTED Verified 09/14/20 21:03 Inhibitor LIVER ENZYMES codeine Allergy Unknown Unverified 09/14/20 21:03 amoxicillin [From Augmentin] AdvReac Vomiting Unverified 09/14/20 21:03 clavulanic acid AdvReac Vomiting Unverified 09/14/20 21:03 [From Augmentin] Home Meds Home Medications Medication Instructions Recorded Confirmed coenzyme Q10 [CoQ-10] 100 mg PO QAM 01/21/19 09/14/20 omega 2-rvp-rwf-fish oil [Fish Oil] 1 cap PO QAM 01/21/19 09/14/20 Probiotic 3,000 mmu cells PO QAM 06/26/19 09/14/20 cetirizine [Zyrtec] 10 mg PO HS 06/26/19 09/14/20 cholecalciferol (vitamin D3) 1,000 unit PO QAM 06/26/19 09/14/20 [Vitamin D3] multivitamin 1 tab PO QDL 06/26/19 09/14/20 omeprazole 20 mg PO QAM 06/26/19 09/14/20 Christy-C with Bioflavonoids 1 tab PO BID 08/06/19 09/14/20 clopidogrel [Plavix] 75 mg PO QAM 08/06/19 09/14/20 furosemide 20 mg tablet 10 mg PO Q OTHER DAY 10/20/19 09/14/20 Al hyd-Mg tr-alg ac-sod bicarb 1 tab PO UD PRN 09/14/20 09/14/20 [Gaviscon] cyanocobalamin (vitamin B-12) 2,500 mcg SUBLINGUAL DAILY 09/14/20 09/14/20 [Vitamin B-12] diclofenac sodium [Voltaren] 1 g TOPICAL QID PRN 09/14/20 09/14/20 diphenhydramine HCl [Benadryl] 25 mg PO Q6H PRN 09/14/20 09/14/20 ezetimibe [Zetia] 10 mg PO QPM 09/14/20 09/14/20 garlic [Garlique] 400 mg PO QPM 09/14/20 09/14/20 lactobacillus combination no.4 0 mmu cells PO DAILY 09/14/20 09/14/20 [Probiotic] metoprolol succinate [Toprol XL] 50 mg PO QPM 09/14/20 09/14/20 Previous Rx's Medication Instructions Recorded epinephrine [EpiPen] 0.3 mg IM Q3H PRN #1 ea 03/26/19 Results & Data (ED) Vital Signs Vital Signs - 24 hr 09/14/20 18:14 09/14/20 20:00 09/14/20 20:10 Temperature 36.6 C Temperature Source Oral Pulse Rate 93 H 85 Pulse Rate [Apical] 85 Pulse Rate from SpO2 Sensor 84 Pulse Rhythm Regular Pulse Strength Normal Respiratory Rate 20 21 20 Respiratory Effort / Characteristics Non-Labored Non-Labored Respiratory Depth Normal Normal Respiratory Pattern Regular Blood Pressure 198/101 H 140/86 Blood Pressure [Right Arm] 140/86 Blood Pressure Mean 133 104 Blood Pressure Mean [Right Arm] 104 Blood Pressure Position Sitting Pulse Oximetry 97 97 97 Oxygen Delivery Method Room Air Room Air Sepsis Recent Fever Within 48 Hours No Sepsis New/Unexplained Change in Mental Status No Sepsis Action Taken by Nursing No Action Required 09/14/20 20:35 09/14/20 20:40 09/14/20 20:50 Temperature Temperature Source Pulse Rate 81 89 86 Pulse Rate [Apical] Pulse Rate from SpO2 Sensor 77 78 86 Pulse Rhythm Pulse Strength Respiratory Rate 22 14 22 Respiratory Effort / Characteristics Respiratory Depth Respiratory Pattern Blood Pressure Blood Pressure [Right Arm] Blood Pressure Mean Blood Pressure Mean [Right Arm] Blood Pressure Position Pulse Oximetry 96 98 98 Oxygen Delivery Method Sepsis Recent Fever Within 48 Hours Sepsis New/Unexplained Change in Mental Status Sepsis Action Taken by Nursing 09/14/20 21:00 09/14/20 21:01 09/14/20 21:10 Temperature Temperature Source Pulse Rate 82 83 82 Pulse Rate [Apical] Pulse Rate from SpO2 Sensor 83 85 81 Pulse Rhythm Pulse Strength Respiratory Rate 21 22 24 Respiratory Effort / Characteristics Respiratory Depth Respiratory Pattern Blood Pressure 168/92 H Blood Pressure [Right Arm] Blood Pressure Mean 117 Blood Pressure Mean [Right Arm] Blood Pressure Position Pulse Oximetry 95 99 98 Oxygen Delivery Method Sepsis Recent Fever Within 48 Hours Sepsis New/Unexplained Change in Mental Status Sepsis Action Taken by Nursing Laboratory Data Result diagrams: 09/14/20 18:28 09/14/20 18:28 Lab Results 09/14/20 09/14/20 09/14/20 Range/Units 18:28 18:28 18:28 WBC 9.14 (4.8-10.8) K/uL RBC 4.65 (4.2-5.4) M/uL Hgb 14.2 (12.0-16.0) g/dL POC Hgb (12.0-16.0) g/dl Hct 42.6 (37-47) % POC Hct (37-47) % MCV 91.6 (80-100) fL MCH 30.5 (25-34) pg MCHC 33.3 (32-36) g/dL RDW Std Deviation 44.0 (36.4-46.3) fL RDW Coeff of Nikko 13.2 (11.5-14.5) % Plt Count 284 (130-400) K/uL MPV 10.2 (7.4-10.4) fL Immature Gran % (Auto) 0.2 % Neut % (Auto) 60.9 % Lymph % (Auto) 25.3 % [place] % (Auto) 8.9 % Eos % (Auto) 4.5 % Baso % (Auto) 0.2 % Neut # (Auto) 5.57 (1.4-6.5) K/uL Lymph # (Auto) 2.31 (1.2-3.4) K/uL [place] # (Auto) 0.81 H (0.11-0.59) K/uL Eos # (Auto) 0.41 (0-0.5) K/uL Baso # (Auto) 0.02 (0-0.2) K/uL Immature Gran # (Auto) 0.02 (0.00-0.02) K/uL PT 10.5 (9.0-12.0) Seconds INR 1.0 (0.9-1.1) APTT 25.7 (21.0-31.0) Seconds PTT Ratio 0.9 POC Sodium (135-144) mmol/L Sodium 141 (136-145) mmol/L POC Potassium (3.3-5.0) mmol/L Potassium 3.9 (3.5-5.1) mmol/L POC Chloride (101-112) mmol/L Chloride 108 H (98-107) mmol/L Carbon Dioxide 29 (21-32) mmol/L POC Total CO2 (24-31) mmol/L Anion Gap 4.0 (3-11) POC Anion Gap (16-25) mmol/L POC BUN (7-18) mg/dl BUN 19 H (7-18) mg/dl Creatinine 0.91 (0.6-1.2) mg/dl POC Creatinine (0.6-1.3) mg/dl Est Cr Clr Drug Dosing 63.9 ml/min Est GFR ( Amer) 72.0 Est GFR (Non-Af Amer) 62.2 BUN/Creatinine Ratio 21.3 H (10-20) Glucose 108 H (70-99) mg/dl POC Glucose (70-99) mg/dl POC Glucose (other) (70-99) mg/dl Calcium 9.1 (8.5-10.1) mg/dl POC Ioniz Calcium Cynthia (1.12-1.32) mmol/l Magnesium 2.0 (1.8-2.4) mg/dl Total Bilirubin 0.6 (0.2-1) mg/dl AST 19 (15-37) U/L ALT 24 (12-78) U/L Alkaline Phosphatase 103 (45-117) U/L Troponin I < 0.015 (0-0.045) ng/ml Total Protein 7.4 (6.4-8.2) gm/dl Albumin 3.5 (3.4-5.0) gm/dl Globulin 3.9 (2.5-4.0) gm/dl Albumin/Globulin Ratio 0.9 (0.9-2) Specimen Hemolysis Urine Color Urine Appearance (Clear) Urine pH (4.5-7.5) Ur Specific [place] (1.000-1.030) Urine Protein (Negative) Urine Glucose (UA) (Negative) Urine Ketones (Negative) Urine Blood (Negative) Urine Nitrite (Negative) Urine Bilirubin (Negative) Urine Urobilinogen (Negative) Ur Leukocyte Esterase (Negative) Urine WBC (Auto) (0-5) /hpf Urine RBC (Auto) (0-4) /hpf U Hyaline Cast (Auto) (0-5) /lpf U Epithel Cells (Auto) (0-5) /lpf Urine Bacteria (Auto) (Negative) Blood Type Antibody Screen 09/14/20 09/14/20 09/14/20 Range/Units 18:34 18:38 18:48 WBC (4.8-10.8) K/uL RBC (4.2-5.4) M/uL Hgb (12.0-16.0) g/dL POC Hgb 14.6 (12.0-16.0) g/dl Hct (37-47) % POC Hct 43 (37-47) % MCV (80-100) fL MCH (25-34) pg MCHC (32-36) g/dL RDW Std Deviation (36.4-46.3) fL RDW Coeff of Nikko (11.5-14.5) % Plt Count (130-400) K/uL MPV (7.4-10.4) fL Immature Gran % (Auto) % Neut % (Auto) % Lymph % (Auto) % [place] % (Auto) % Eos % (Auto) % Baso % (Auto) % Neut # (Auto) (1.4-6.5) K/uL Lymph # (Auto) (1.2-3.4) K/uL [place] # (Auto) (0.11-0.59) K/uL Eos # (Auto) (0-0.5) K/uL Baso # (Auto) (0-0.2) K/uL Immature Gran # (Auto) (0.00-0.02) K/uL PT (9.0-12.0) Seconds INR (0.9-1.1) APTT (21.0-31.0) Seconds PTT Ratio POC Sodium 142 (135-144) mmol/L Sodium (136-145) mmol/L POC Potassium 4.0 (3.3-5.0) mmol/L Potassium (3.5-5.1) mmol/L POC Chloride 103 (101-112) mmol/L Chloride (98-107) mmol/L Carbon Dioxide (21-32) mmol/L POC Total CO2 29 (24-31) mmol/L Anion Gap (3-11) POC Anion Gap 16.0 (16-25) mmol/L POC BUN 24 H (7-18) mg/dl BUN (7-18) mg/dl Creatinine (0.6-1.2) mg/dl POC Creatinine 0.8 (0.6-1.3) mg/dl Est Cr Clr Drug Dosing ml/min Est GFR ( Amer) Est GFR (Non-Af Amer) BUN/Creatinine Ratio (10-20) Glucose (70-99) mg/dl POC Glucose 108 H (70-99) mg/dl POC Glucose (other) 108 H (70-99) mg/dl Calcium (8.5-10.1) mg/dl POC Ioniz Calcium Cynthia 1.25 (1.12-1.32) mmol/l Magnesium (1.8-2.4) mg/dl Total Bilirubin (0.2-1) mg/dl AST (15-37) U/L ALT (12-78) U/L Alkaline Phosphatase (45-117) U/L Troponin I (0-0.045) ng/ml Total Protein (6.4-8.2) gm/dl Albumin (3.4-5.0) gm/dl Globulin (2.5-4.0) gm/dl Albumin/Globulin Ratio (0.9-2) Specimen Hemolysis Urine Color Urine Appearance (Clear) Urine pH (4.5-7.5) Ur Specific [place] (1.000-1.030) Urine Protein (Negative) Urine Glucose (UA) (Negative) Urine Ketones (Negative) Urine Blood (Negative) Urine Nitrite (Negative) Urine Bilirubin (Negative) Urine Urobilinogen (Negative) Ur Leukocyte Esterase (Negative) Urine WBC (Auto) (0-5) /hpf Urine RBC (Auto) (0-4) /hpf U Hyaline Cast (Auto) (0-5) /lpf U Epithel Cells (Auto) (0-5) /lpf Urine Bacteria (Auto) (Negative) Blood Type A Positive Antibody Screen NEGATIVE 09/14/20 Range/Units 18:55 WBC (4.8-10.8) K/uL RBC (4.2-5.4) M/uL Hgb (12.0-16.0) g/dL POC Hgb (12.0-16.0) g/dl Hct (37-47) % POC Hct (37-47) % MCV (80-100) fL MCH (25-34) pg MCHC (32-36) g/dL RDW Std Deviation (36.4-46.3) fL RDW Coeff of Nikko (11.5-14.5) % Plt Count (130-400) K/uL MPV (7.4-10.4) fL Immature Gran % (Auto) % Neut % (Auto) % Lymph % (Auto) % [place] % (Auto) % Eos % (Auto) % Baso % (Auto) % Neut # (Auto) (1.4-6.5) K/uL Lymph # (Auto) (1.2-3.4) K/uL [place] # (Auto) (0.11-0.59) K/uL Eos # (Auto) (0-0.5) K/uL Baso # (Auto) (0-0.2) K/uL Immature Gran # (Auto) (0.00-0.02) K/uL PT (9.0-12.0) Seconds INR (0.9-1.1) APTT (21.0-31.0) Seconds PTT Ratio POC Sodium (135-144) mmol/L Sodium (136-145) mmol/L POC Potassium (3.3-5.0) mmol/L Potassium (3.5-5.1) mmol/L POC Chloride (101-112) mmol/L Chloride (98-107) mmol/L Carbon Dioxide (21-32) mmol/L POC Total CO2 (24-31) mmol/L Anion Gap (3-11) POC Anion Gap (16-25) mmol/L POC BUN (7-18) mg/dl BUN (7-18) mg/dl Creatinine (0.6-1.2) mg/dl POC Creatinine (0.6-1.3) mg/dl Est Cr Clr Drug Dosing ml/min Est GFR ( Amer) Est GFR (Non-Af Amer) BUN/Creatinine Ratio (10-20) Glucose (70-99) mg/dl POC Glucose (70-99) mg/dl POC Glucose (other) (70-99) mg/dl Calcium (8.5-10.1) mg/dl POC Ioniz Calcium Cynthia (1.12-1.32) mmol/l Magnesium (1.8-2.4) mg/dl Total Bilirubin (0.2-1) mg/dl AST (15-37) U/L ALT (12-78) U/L Alkaline Phosphatase (45-117) U/L Troponin I (0-0.045) ng/ml Total Protein (6.4-8.2) gm/dl Albumin (3.4-5.0) gm/dl Globulin (2.5-4.0) gm/dl Albumin/Globulin Ratio (0.9-2) Specimen Hemolysis Urine Color Yellow Urine Appearance Cloudy A (Clear) Urine pH 7.0 (4.5-7.5) Ur Specific [place] 1.018 (1.000-1.030) Urine Protein Negative (Negative) Urine Glucose (UA) Negative (Negative) Urine Ketones Negative (Negative) Urine Blood Negative (Negative) Urine Nitrite Negative (Negative) Urine Bilirubin Negative (Negative) Urine Urobilinogen Negative (Negative) Ur Leukocyte Esterase 1+ H (Negative) Urine WBC (Auto) >30 H (0-5) /hpf Urine RBC (Auto) 0-4 (0-4) /hpf U Hyaline Cast (Auto) 1-5 (0-5) /lpf U Epithel Cells (Auto) 10-20 H (0-5) /lpf Urine Bacteria (Auto) 1+ H (Negative) Blood Type Antibody Screen Administered Medications Discontinued Medications Ceftriaxone Sodium (Rocephin) 1,000 mg in 50 mls @ 100 mls/hr IV NOW STA Stop: 09/14/20 20:36 Last Infusion: 09/14/20 21:26 Dose: 0 mls/hr Documented by: [id number] Admin: 09/14/20 20:26 Dose: 100 mls/hr Documented by: [id number] Ioversol (Optiray 320 125ml) 116 ml IV ONCE ONE Stop: 09/14/20 19:20 Last Admin: 09/14/20 19:20 Dose: 116 ml Documented by: [id number] Discharge Plan Visit Data Chief Complaint: Neuro Symptoms/Deficit Stated Complaint: MEMORY LOSS, HYPERTENSION ED Provider: Ace Resendez Discharge Problem: Confusion, Hypertension, Amnesia/memory disorder Patient Disposition: Admitted As Inpatient Discharge Instructions Interventions: ED Discharge Assessment Last Done: 09/14/20 22:21
[2020-09-14] MEDS ORDERED: OPTIRAY 320 125ml IV ONE (19:19)
--- NOTE | 2020-09-14 19:34 | CT Scan Report ---
CT head/brain wo con CLINICAL HISTORY: 74 years-old Female with Stroke Like Symptoms. Acute strokelike symptoms TECHNIQUE: Multiple axial CT images of the head were obtained without contrast. A dose lowering tech nique was utilized adhering to the principles of ALARA. CT DOSE: 1102.82 mGy.cm COMPARISON: Head CT 10/05/2019. FINDINGS: No acute intracranial hemorrhage, midline shift, intracranial mass, hydrocephalus, territorial ischem ia or abnormal extra-axial collection. Age-related involutional changes. Mild patchy white matter hyp odensities suggest chronic microvascular ischemic disease. Cerebral vascular calcifications. The calvarium is intact. Prior bilateral lens replacement. The paranasal sinuses, mastoid air cells, and middle ear cavities are clear. IMPRESSION: No acute intracranial abnormality. ACT 112: Negative or not required by law. The above report was generated using voice recognition software. It may contain grammatical, syntax o r spelling errors. Electronically signed by: William Llanos M.D. 09/14/2020 7:30 PM
--- NOTE | 2020-09-14 19:48 | CT Scan Report ---
CT angio neck with con, CT angio head w con CLINICAL HISTORY: 74 years-old Female with Stroke Like Symptoms. Acute strokelike symptoms COMPARISON STUDY: Head CT of same day TECHNIQUE: Following the IV administration of 116 mL of Optiray 320, CT angiogram of the head and nec k was performed from the aortic arch to the skull apex. Images are reviewed in the axial, sagittal, a nd coronal planes. 3-D MIPS images are created and assessed. IV contrast was administered without com plication. All measurements were calculated based on NASCET criteria. A dose lowering technique was utilized adhering to the principles of ALARA. FINDINGS: Aberrant right subclavian artery. Moderate mixed plaque of the thoracic aortic arch. Patency of the i chao subclavian arteries. The right common and internal carotid arteries are patent. The left common carotid artery is patent. There is moderate to severe mixed plaque of the left carotid bulb and prox imal cervical segment left ICA which results in approximately 50% luminal narrowing. There is calcifi ed plaque noted within the cavernous and supraclinoid segments, right greater than left without high- grade stenosis. The middle and anterior cerebral arteries appear patent. Dominant left vertebral artery. Calcified plaque of the V4 segment left vertebral artery results in m ild stenosis. High-grade stenosis at the origin of the right vertebral artery secondary to calcified plaque. Basilar artery is patent. origin of the right posterior cerebral artery. Posterior cere bral arteries are widely patent. Cerebral venous sinuses are also patent. There is no abnormal intrac ranial enhancement. Lung apices are clear. No pneumothorax. Unremarkable soft tissues. Streak artifact from dental amalga m hardware. Prior bilateral lens replacement. Multilevel degenerative changes of the spine. IMPRESSION: 1. High-grade stenosis at the origin of the right vertebral artery secondary to prominent calcified p laque. 2. Moderate to severe mixed plaque of the left carotid bulb and proximal left ICA results in approxim ately 50% luminal narrowing. 3. Aberrant course of the right subclavian artery. 4. Otherwise unremarkable CTA of the head and neck. ACT 112: Negative or not required by law. The above report was generated using voice recognition software. It may contain grammatical, syntax o r spelling errors. Electronically signed by: William Llanos M.D. 09/14/2020 7:46 PM
[2020-09-14] MEDS ORDERED: cefTRIAXone SODIUM 1,000 MG/50 ML BAG IV STA (20:07)
[2020-09-14] MEDS ORDERED: THIAMINE HCL 500 MG in SODIUM CHLORIDE 0.9% 50 ML IV STA (22:57)
[2020-09-14] MEDS ORDERED: diphenhydrAMINE Capsule 25 MG CAP PO PRN (22:57)
[2020-09-14] MEDS ORDERED: POLYETHYLENE (MIRALAX) 17 GM PACK PO PRN (22:57)
[2020-09-14] MEDS ORDERED: DICLOFENAC SOD 1% GEL 100 GM TUBE EXT PRN (22:57)
[2020-09-14] MEDS ORDERED: ONDANSETRON INJ 2 MG/ML 2 ML VIAL IV PRN (22:57)
[2020-09-14] MEDS ORDERED: PHARMACIST DISCHARGE MED REC CONSULT PRN (22:57)
[2020-09-14] MEDS ORDERED: NITROGLYCERIN SL 0.4 MG/TAB TAB SL PRN (22:57)
[2020-09-14] MEDS ORDERED: ACETAMINOPHEN 325 MG TAB PO PRN (22:57)
[2020-09-14] MEDS ORDERED: diphenhydrAMINE Capsule 25 MG CAP ONE (23:13)
[2020-09-15] MEDS ORDERED: LORazepam 0.5 MG/1 ML VIAL IV STA (00:23)
[2020-09-15] MEDS ORDERED: LORazepam 2 MG/4 ML VIAL ONE (00:25)
[2020-09-15] MEDS: SODIUM CHLORIDE 0.9% 1000ML 1,000 ML IV SCH ×2 (00:43→19:19)
--- NOTE | 2020-09-15 01:12 | History and Physical Report ---
DATE OF ADMISSION: 09/14/2020 CHIEF COMPLAINT: Transient global amnesia. HISTORY OF PRESENT ILLNESS: A 74-year-old female with past medical history significant for hypertension, hyperlipidemia, history of carotid artery stenosis, GERD, who lives with her daughter, who was brought in because of transient global amnesia. The patient today since 11:00 a.m. having some difficulty remembering things short-term. She could not recognize her son. She could not recognize her daughter checking the blood pressure. When daughter checked her blood pressure, the blood pressure was high and systolic in the 190s at which time the patient was brought to the hospital. As per daughter, the patient many years ago had similar episode. But that time, it was more severe than today. At that time, it was thought to be because of her elevated blood pressure. Currently, the patient seems to be improving. She still does not remember few things ,she does not remember her daughter checking blood pressure twice. Currently, patient's speech is clear. Alert and oriented x3. Could subtract 7 from 100 until which she was asked. Follows commands and answers all the questions appropriately. The patient currently denies any headache, but occasionally she gets some migraine headaches. No blurred vision, no double vision, no earache, no runny nose, no sore throat, no cough, no difficulty swallowing. No loss of sense of smell or taste. No fever, no chills, no shortness of breath, no chest pain, no nausea, no vomiting, no abdominal pain, no diarrhea, no constipation, no blood in stools or black stools. Has some burning micturition today. No rash anywhere. Sleeps okay. No recent weight gain or weight loss. No feeling hot or cold. Currently, resting comfortable and hemodynamically stable. ALLERGIES: ASPIRIN, LISINOPRIL, AMLODIPINE, HYDROCHLOROTHIAZIDE, STATINS, CODEINE, AMOXICILLIN, CLAVULANIC ACID. PAST MEDICAL HISTORY: As mentioned above. PAST SURGICAL HISTORY: Colonoscopy with biopsy, EGD with endoscopic ultrasound, ERCPs, vaginal myomectomy for pedunculated cervical fibroids, laparoscopic cholecystectomy, laparoscopic appendectomy, bilateral cataract surgeries, right carotid endarterectomy. MEDICATIONS: The patient is on cetirizine 10 mg at bedtime, vitamin D 1000 units q. a.m., Plavix 75 mg q. a.m., Coenzyme Q10 100 mg q. a.m., vitamin B12 2500 mcg sublingual daily, diclofenac sodium 1 gram topically q.i.d. p.r.n., Benadryl 25 mg p.o. q. 6 hours p.r.n., EpiPen p.r.n., Zetia 10 mg q. p.m., furosemide 10 mg p.o. every other day, probiotic 1 tablet daily, metoprolol succinate 50 mg p.o. q. p.m., multivitamins 1 tablet p.o. daily, omega fish oil 1 capsule daily, omeprazole 20 mg p.o. a.m., probiotic 1 tablet daily. FAMILY HISTORY: Significant for mother had glaucoma, CHF, thyroid disorder. Father had OK. Sister has heart disorder, thyroid disorder. SOCIAL HISTORY: , currently lives with her daughter. No smoking, no alcohol, no drug use. REVIEW OF SYMPTOMS: As per HPI. Rest of review of systems negative. PHYSICAL EXAMINATION: GENERAL: The patient is of moderate build, not in acute distress. VITAL SIGNS: Temperature 36.6, pulse 82, respiratory rate 23, blood pressure when she came in was 198/101, currently 168/92, oxygen 98% on room air. HEENT: Pupils equal, round, and reactive to light. Extraocular muscles intact. Oral mucosa moist. NECK: No JVD, no neck masses. CARDIOVASCULAR: S1, S2 heard, regular rate and rhythm, no murmur, no gallop. RESPIRATORY SYSTEM: Normal AP diameter. No accessory muscle use. No wheezing, no crackles. ABDOMEN: Soft, bowel sounds present, nontender. No distention. CENTRAL NERVOUS SYSTEM: Alert and oriented x3. Speech clear. No facial droop. Tongue midline. Judgment good. Power 5/5 in all extremities. Sensation is intact, position sense intact. No pronator drift. Coordination of movements normal. EXTREMITIES: Mild pedal edema present. No erythema seen. LABORATORY DATA: WBC 9.1, hemoglobin 14.2, hematocrit 42.6, platelets 284. PT 10.5, INR 1, APTT 25.7. Sodium 141, potassium 3.9, chloride 108, CO2 29, BUN 19, creatinine 0.9, serum glucose 108, calcium 9.1, magnesium 2, total bilirubin 0.6, AST 19, ALT 24, alkaline phosphatase 103. Troponin I less than 0.015. Urinalysis, leukocyte esterase +1 positive, urine blood +1 positive. SARS-CoV-2 RNA pending. IMAGING: Chest x-ray: No acute process. CT of the head, no acute intracranial abnormality. CTA of the head and neck, high-grade stenosis at the origin of right vertebral artery secondary to prominent calcified plaque, moderate to severe mixed plaque of the left carotid bulb and proximal left ICA resulting in approximately 50% luminal narrowing, aberrant course of the right subclavian artery, otherwise unremarkable CTA of the head and neck. EKG: Normal sinus rhythm, rate of 82, no Q-waves in inferior leads, no significant change was found. ASSESSMENT AND PLAN: This 74-year-old female presents with transient global amnesia. 1. Transient global amnesia. Symptoms are improving. History of global amnesia in the past several years ago thought to be from elevated blood pressure. Today also blood pressure was high. Initial workup with CT scan and CTA of the head and neck was mostly unremarkable except for some high grade stenosis at the origin of right vertebral artery. We will do further workup with MRI scan, EEG, and echocardiogram. Monitor on tele. We will do high dose of IV thiamine 500 mg. The patient is ALLERGIC TO ASPIRIN. The patient is already on Plavix and Zetia. We will follow the lipid profile, HbA1c levels, closely monitor and Neurology consult. 2. History of hypertension. We will allow for permissive hypertension for now and continue her home Toprol-XL. Monitor blood pressure. 3. Gastroesophageal reflux disease. Continue omeprazole. 4. Hyperlipidemia. She is ALLERGIC TO STATINS. On Zetia. We will follow fasting lipid profile. 5. History of carotid stenosis, status post right carotid endarterectomy, on Zetia and Plavix. 6. UTI. Rocephin. Will follow cultures. 7. Deep vein thrombosis prophylaxis, sequential compression devices for now. 8. Disposition, closely monitor in the tele floor. Level 1 full code. Expect to discharge home and follow with family doctor. PT and OT prior to discharge. rehab services aide to help with discharge planning. EDA
[2020-09-15] MEDS ORDERED: EPINEPHrine INJ 1 MG/ML AMP IM PRN (04:04)
[2020-09-15 05:03] LABS: Basophils # (auto) 0.03 K/uL (0-0.2); Basophils % (auto) 0.4 %; Eosinophils # (auto) 0.31 K/uL (0-0.5); Eosinophils % (auto) 3.8 %; Hemoglobin 13.6 g/dL (12.0-16.0); Lymphocytes # (auto) 1.65 K/uL (1.2-3.4); Lymphocytes % (auto) 20.3 %; Mean Corpuscular Hemoglobin 30.2 pg (25-34); Mean Corpuscular Hgb Conc 33.2 g/dL (32-36); Mean Corpuscular Volume 90.9 fL (80-100); Mean Platelet Volume 10.1 fL (7.4-10.4); Monocytes # (auto) 1.04 K/uL (0.11-0.59); Monocytes % (auto) 12.8 %; Neutrophils # (auto) 5.11 K/uL (1.4-6.5); Neutrophils % (auto) 62.7 %; Platelet Count 238 K/uL (130-400); RDW Coefficient of Variation 13.2 % (11.5-14.5); RDW Standard Deviation 43.3 fL (36.4-46.3); Red Blood Count 4.51 M/uL (4.2-5.4); White Blood Count 8.14 K/uL (4.8-10.8)
[2020-09-15 05:31] LABS: BUN Creatinine Ratio 19.3 (10-20); Calcium 8.5 mg/dl (8.5-10.1); Creatinine Clr Calc Pharmacy 94.3 ml/min; Est GFR (African American) 101.9; Est GFR (Non-African American) 87.9; Potassium 3.6 mmol/L (3.5-5.1)
[2020-09-15 07:13] LABS: Estimated Average Glucose 111 mg/dl; Hemoglobin A1C 5.5 % (4.5-5.6)
[2020-09-15] MEDS: CYANOCOBALAMIN (VITAMIN B-12) 2,500 MCG TAB.SUBL SL SCH (08:02)
[2020-09-15] MEDS: CLOPIDOGREL BISULFATE 75 MG TAB PO SCH (08:02)
[2020-09-15] MEDS: ADVANCED PROBIOTIC 1250 MG CAPSULE PO SCH (08:02)
[2020-09-15] MEDS: cefTRIAXone SODIUM 2,000 MG in DEXTROSE 5% 50 ML IV SCH (08:03)
[2020-09-15] MEDS: CHOLECALCIFEROL 1,000 UNITS 25 MCG TAB PO SCH (08:03)
[2020-09-15] MEDS: PANTOprazole 40 MG TAB PO SCH (08:03)
[2020-09-15] MEDS ORDERED: NON-FORMULARY MEDICATION (Lactobacillus Combination No.4 [Probiotic] 3 billion cell Capsul PO SCH (09:00)
[2020-09-15] MEDS ORDERED: NON-FORMULARY MEDICATION (Coenzyme Q10 [Coq-10] 100 mg Capsule) PO SCH (09:00)
--- NOTE | 2020-09-15 09:55 | Electrocardiogram Report ---
Test Reason : Blood Pressure : / mmHG Vent. Rate : 082 BPM Atrial Rate : 082 BPM P-R Int : 172 ms QRS Dur : 078 ms QT Int : 354 ms P-R-T Axes : 028 -29 -02 degrees QTc Int : 413 ms Normal sinus rhythm Inferior infarct (cited on or before 23-JUN-2003) Anterior infarct (cited on or before 23-JUN-2003) Abnormal ECG When compared with ECG of 25-MAR-2019 02:04, No significant change was found Confirmed by Torrey Hamilton ([id number]) on 09/15/2020 9:54:49 AM Referred By: REFERRED SELF Confirmed By:Joel Hamilton
--- NOTE | 2020-09-15 13:41 | Electroencephalogram ---
EEG Procedure Note Date of Service September 15, 2020 Start / End Times Start Time: 06:35 End Time: 06:55 Referring Physician Maury Batres MD History A 74-year-old woman admitted with memory loss and a possible urinary tract infection. EEG performed for evaluation epileptiform activity. Home Medication List Medication Instructions Recorded Confirmed Type coenzyme Q10 [CoQ-10] 100 mg PO QAM 01/21/19 09/14/20 History omega 0-zun-ugs-fish oil [Fish Oil] 1 cap PO QAM 01/21/19 09/14/20 History epinephrine [EpiPen] 0.3 mg IM Q3H PRN #1 ea 03/26/19 09/14/20 Rx Probiotic 3,000 mmu cells PO QAM 06/26/19 09/14/20 History cetirizine [Zyrtec] 10 mg PO HS 06/26/19 09/14/20 History cholecalciferol (vitamin D3) 1,000 unit PO QAM 06/26/19 09/14/20 History [Vitamin D3] multivitamin 1 tab PO QDL 06/26/19 09/14/20 History omeprazole 20 mg PO QAM 06/26/19 09/14/20 History Christy-C with Bioflavonoids 1 tab PO BID 08/06/19 09/14/20 History clopidogrel [Plavix] 75 mg PO QAM 08/06/19 09/14/20 History furosemide 20 mg tablet 10 mg PO Q OTHER DAY 10/20/19 09/14/20 History Al hyd-Mg tr-alg ac-sod bicarb 1 tab PO UD PRN 09/14/20 09/14/20 History [Gaviscon] cyanocobalamin (vitamin B-12) 2,500 mcg SUBLINGUAL DAILY 09/14/20 09/14/20 History [Vitamin B-12] diclofenac sodium [Voltaren] 1 g TOPICAL QID PRN 09/14/20 09/14/20 History diphenhydramine HCl [Benadryl] 25 mg PO Q6H PRN 09/14/20 09/14/20 History ezetimibe [Zetia] 10 mg PO QPM 09/14/20 09/14/20 History garlic [Garlique] 400 mg PO QPM 09/14/20 09/14/20 History lactobacillus combination no.4 0 mmu cells PO DAILY 09/14/20 09/14/20 History [Probiotic] metoprolol succinate [Toprol XL] 50 mg PO QPM 09/14/20 09/14/20 History Inpatient Medication List Clopidogrel Bisulfate (Clopidogrel Bisulfate 75 Mg Tab) [facility] Stop: 10/15/20 08:59 Last Admin: 09/15/20 08:02 Dose: 75 mg Documented by: [id number] Cyanocobalamin (Cyanocobalamin (Vitamin B-12) 2,500 Mcg Tab.Subl) 2,500 mcg SL DAILY [facility] Stop: 10/15/20 08:59 Last Admin: 09/15/20 08:02 Dose: 2,500 mcg Documented by: [id number] Sodium Chloride (Nss 1000ml) 1,000 mls @ 75 mls/hr IV .[id number] [facility] Stop: 10/14/20 22:56 Last Admin: 09/15/20 00:43 Dose: 75 mls/hr Documented by: [id number] Ceftriaxone Sodium 2,000 mg/ (Dextrose) 70 mls @ 100 mls/hr IV Q24H [facility]; Protocol Stop: 09/20/20 06:59 Last Infusion: 09/15/20 08:44 Dose: 0 mls/hr Documented by: [id number] Admin: 09/15/20 08:03 Dose: 100 mls/hr Documented by: [id number] Lactobacillus Acidoph/Casei/Rhamnos (Advanced Probiotic 1250 Mg Capsule) 2 cap PO DAILY [facility] Stop: 10/15/20 08:59 Last Admin: 09/15/20 08:02 Dose: 2 cap Documented by: [id number] Pantoprazole Sodium (Pantoprazole 40 Mg Tab) 40 mg PO [facility] Stop: 10/15/20 08:59 Last Admin: 09/15/20 08:03 Dose: 40 mg Documented by: [id number] Vitamin D (Cholecalciferol 1,000 Units 25 Mcg Tab) 1,000 units PO [facility] Stop: 10/15/20 08:59 Last Admin: 09/15/20 08:03 Dose: 1,000 units Documented by: [id number] Discontinued Medications Diphenhydramine HCl (Diphenhydramine Capsule 25 Mg Cap) Confirm Administered Dose 25 mg .ROUTE .STK-MED ONE Stop: 09/14/20 23:14 Last Admin: 09/15/20 00:43 Dose: 25 mg Documented by: [id number] Ceftriaxone Sodium (Rocephin) 1,000 mg in 50 mls @ 100 mls/hr IV NOW STA Stop: 09/14/20 20:36 Last Infusion: 09/14/20 21:26 Dose: 0 mls/hr Documented by: [id number] Admin: 09/14/20 20:26 Dose: 100 mls/hr Documented by: [id number] Thiamine HCl 500 mg/ Sodium (Chloride) 55 mls @ 208 mls/hr IV NOW STA Stop: 09/14/20 23:12 Last Infusion: 09/15/20 00:59 Dose: 208 mls/hr Documented by: [id number] Admin: 09/15/20 00:43 Dose: 208 mls/hr Documented by: [id number] Lorazepam (Ativan) 0.5 mg in 1 mls @ 1 mls/min IV NOW STA Stop: 09/15/20 00:24 Last Admin: 09/15/20 00:42 Dose: Not Given Documented by: [id number] Ioversol (Optiray 320 125ml) 116 ml IV ONCE ONE Stop: 09/14/20 19:20 Last Admin: 09/14/20 19:20 Dose: 116 ml Documented by: [id number] Lorazepam (Lorazepam 2 Mg/4 Ml Vial) Confirm Administered Dose 2 mg .ROUTE .[facility] ONE Stop: 09/15/20 00:26 Last Admin: 09/15/20 00:42 Dose: Not Given Documented by: [id number] Description This is a 21 electrode EEG with a single channel dedicated to limited EKG. The electrodes were placed in accordance with the International 10-20 system. REPORT: At the onset of the EEG the patient is awake. The background is symmetric and well organized. There is a normal anterior to posterior gradient with increased low-amplitude beta activity in the frontal head regions. The posterior dominant rhythm is 9-10 Hz. there is intermittent electrical and movement artifact. Drowsiness is characterized by increased theta activity, reduced blink rate, and decreased myogenic artifact. No stage 2 sleep transients are recorded. IMPRESSION: This is a normal awake and drowsy routine EEG. There is no evidence of focal slowing or epileptiform activity.
[2020-09-15] MEDS: MULTIVITAMIN TAB PO SCH (13:48)
--- NOTE | 2020-09-15 13:49 | Neurology Consultation ---
Date of Consultation September 15, 2020 Assessment & Plan (1) Amnesia/memory disorder: 1. EEG no evidence of seizure focus 2. appears to be back to baseline 3. CT head - no acute findings- unable to tolerate MRI 4. MRI as outpatient in open is an option 5. unclear if this was a stroke/TIA/TGA will see in office on [facility] schedule 4-6 weeks -already requested. Present on Admission?: Yes (2) Urinary tract infection without hematuria: 1. treat to culture Present on Admission?: Yes (3) Hypertension: 1. optimize control HTN, HLD, LDL <70 2. cardiology may want to consider another lipid lowering agent - statins are no tolerated Present on Admission?: Yes (4) Carotid artery disease: 1. s/p carotid endartectomy right 2. continue plavix 75 mg would add aspirin but she is allergic Present on Admission?: Yes Supervising Physician Co-Signing Physician Notes I have seen and discussed above patient with Dr Lesly Posada, neurology. PT seen and examined. Pt Ox3, no R-L confusion, speech, language nml, nl hernandez, no facial asymm. Symm UE and LE strength, CT head fairly severe bl chronic ischemic changes. Impression: epidose of protracted confusion on a presumed nml cognitive baseline. Not entirely classic for TGA.Differential includes TGA, TIA, SZ. P vascular fay davison as outpt Would continue Plavix, pt allergic to asa. Pt declines MRI brain with sedation rec gradual control of bp, ask cardiology if pt would benefit from newer tx of hyperlipidemia as she has not tolerated prior statin tx. Pt sees Dr Fernandez as outpt Ok to dc today with follow-up with us post-dc. ANA Posada MD History of Present Illness Reason for Consultation: TGA Requesting Physician: Josemanuel Zacarias MD Attending Physician: Josemanuel Zacarias MD History of Present Illness Tamia has a PMH HTN, HLD, R carotid endarterectomy, GERD. She lives with her daughter, and was brought to the ED because she had an episode of short term memory loss. She was having some difficulty in the morning and was just not feeling right around 11:00 a.m. She didn't recognize her son and did not remember her daughter taking her blood pressure. She was also repeating the same questions over and over. She had a systolic blood pressure of 190 and patient told her daughter to call the PCP but the PCP directed them to go to the ED. She has a history of blood pressure issues and is only on metoprolol because of a bad reaction to lisinopril, Norvasc, hydrochlorothiazide. She did have a similar event several years ago and the daughter witnessed that event also and feels if was very similar to the first event. when asking Tamia she feels this was not the same type of event. She thinks she can remember everything that happened yesterday, but in the ED she could not remember her daugther checking her blood pressure x2. She had a funny feeling in the back of her head but she denies having a headache. She was unable to tolerate the MRI of her brain. denies CP, SOB, abdominal pain, swallowing issues, vision changes, headache, N, V. Allergies Allergy/AdvReac Type Severity Reaction Status Date / Time aspirin Allergy Severe Anaphylaxis Verified 09/14/20 21:03 lisinopril Allergy Severe Difficulty Verified 09/14/20 21:03 Swallowing amlodipine [From Norvasc] Allergy Intermediate LEG Verified 09/14/20 21:03 SWELLING hydrochlorothiazide Allergy Intermediate Hives Verified 09/14/20 21:03 [id number]-Urg-Crr Reductase Allergy Intermediate EFFECTED Verified 09/14/20 21:03 Inhibitor LIVER ENZYMES codeine Allergy Unknown Unverified 09/14/20 21:03 amoxicillin [From Augmentin] AdvReac Vomiting Unverified 09/14/20 21:03 clavulanic acid AdvReac Vomiting Unverified 09/14/20 21:03 [From Augmentin] Home Medications Medication Instructions Recorded Confirmed Type coenzyme Q10 [CoQ-10] 100 mg PO QAM 01/21/19 09/14/20 History omega 7-zgj-ykt-fish oil [Fish Oil] 1 cap PO QAM 01/21/19 09/14/20 History epinephrine [EpiPen] 0.3 mg IM Q3H PRN #1 ea 03/26/19 09/14/20 Rx Probiotic 3,000 mmu cells PO QAM 06/26/19 09/14/20 History cetirizine [Zyrtec] 10 mg PO HS 06/26/19 09/14/20 History cholecalciferol (vitamin D3) 1,000 unit PO QAM 06/26/19 09/14/20 History [Vitamin D3] multivitamin 1 tab PO QDL 06/26/19 09/14/20 History omeprazole 20 mg PO QAM 06/26/19 09/14/20 History Christy-C with Bioflavonoids 1 tab PO BID 08/06/19 09/14/20 History clopidogrel [Plavix] 75 mg PO QAM 08/06/19 09/14/20 History furosemide 20 mg tablet 10 mg PO Q OTHER DAY 10/20/19 09/14/20 History Al hyd-Mg tr-alg ac-sod bicarb 1 tab PO UD PRN 09/14/20 09/14/20 History [Gaviscon] cyanocobalamin (vitamin B-12) 2,500 mcg SUBLINGUAL DAILY 09/14/20 09/14/20 History [Vitamin B-12] diclofenac sodium [Voltaren] 1 g TOPICAL QID PRN 09/14/20 09/14/20 History diphenhydramine HCl [Benadryl] 25 mg PO Q6H PRN 09/14/20 09/14/20 History ezetimibe [Zetia] 10 mg PO QPM 09/14/20 09/14/20 History garlic [Garlique] 400 mg PO QPM 09/14/20 09/14/20 History lactobacillus combination no.4 0 mmu cells PO DAILY 09/14/20 09/14/20 History [Probiotic] metoprolol succinate [Toprol XL] 50 mg PO QPM 09/14/20 09/14/20 History Patient History Medical History (Updated 09/15/20 @ 16:09 by Josemanuel Zacarias MD) Cardiac murmur GERD (gastroesophageal reflux disease) Hx of sepsis HOSPITALIZED 03/2019 "CAUSED POSSIBLY BY LISINOPRIL/HCTZ AND DAILY ASA" Hyperlipidemia Hypertension Migraine Osteoarthritis PVD (peripheral vascular disease) Transient ischemic attack (TIA) "YEARS AGO" NO RECENT EPISODES Surgical History (Updated 10/20/19 @ 14:14 by Samuel Anthony DO) History of anesthesia reaction SLOW TO WAKE UP History of carotid endarterectomy RT 2013 History of cataract surgery RT/LEFT History of colonoscopy History of esophagogastroduodenoscopy (EGD) History of tooth extraction S/P appy appendectomy Dr. Anthony 09-27-19 S/Mio [place] Sep 2019 Family History (Updated 10/20/19 @ 13:34 by Lina Thompson RN) Mother Heart disease Hypertension Father Heart disease Sister Heart disease Hypertension Other Family history non-contributory Social History (Updated 10/20/19 @ 13:34 by Lina Thompson RN) Smoking Status: Never smoker Second Hand Exposure: No; Hx Alcohol Use: No Hx Substance Use: No Preferred Language: Algerian Communication Ability: Effective Geriatric Case Manager Required: No Beliefs That Will Affect Care: None marital status: / Current Living Situation: Family current occupational status: retired Feels Safe at Home: Yes Safety Concerns: Feels Safe At This Time Assistive Devices: None Review of Systems Review of Systems: All systems reviewed & are unremarkable except as noted in HPI & below and All systems reviewed & are unremarkable except as noted in Subjective Physical Exam Physical Exam: Physical Exam: Constitutional: appearance nourished, healthy and normal Ears, Nose, Mouth and Throat: mucous membranes moist, no injection and skin normal, eyes normal Cardiovascular: ejection murmer Respiratory: clear to auscultation (CTA) and no rales, ronchi or wheeze Musculoskeletal: no peripheral edema and good distal pulses Skin: no stigmata of neurocutaneous disease noted and normal and intact Eyes: extraocular muscles intact (EOMI) and pupils equal, round and reactive to light (PERRL) NEUROLOGIC EXAMINATION: Mental status: Alert and interactive Oriented to full date and location Oriented to person Speech fluent with no evidence of aphasia Cranial Nerves smile eye brow raise symmetric Reflexes: Deep tendon reflexes were symmetrical and graded 2/5.down going toes Sensory: light cool vibration Coordination: finger to nose Gait/Stance: Posture normal. Gait normal: with steady with steps, base, turning, heel and toe walking and tandem gait. Motor: Negative for pronator drift of out stretched arms with eyes closed. Strength: biceps triceps hand tobacco stemmer bilaterally 5/5, hip flex patellar plantar flex ext 5/5 Results & Data ([facility]) Vital Signs (Past 12 Hours) Vital Signs Temp Pulse Resp BP Pulse Ox 09/15/20 11:37 85 09/15/20 08:00 36.5 C 76 20 154/83 H 97 09/15/20 05:49 36.6 C 76 21 141/73 H Laboratory Results Abnormal lab results 09/14/20 09/14/20 09/14/20 Range/Units 18:28 18:28 18:34 [place] # (Auto) 0.81 H (0.11-0.59) K/uL Chloride 108 H (98-107) mmol/L Anion Gap (3-11) POC BUN 24 H (7-18) mg/dl BUN 19 H (7-18) mg/dl BUN/Creatinine Ratio 21.3 H (10-20) Glucose 108 H (70-99) mg/dl POC Glucose (70-99) mg/dl POC Glucose (other) 108 H (70-99) mg/dl Triglycerides (0-150) mg/dl Cholesterol (0-200) mg/dl Urine Appearance (Clear) Ur Leukocyte Esterase (Negative) Urine WBC (Auto) (0-5) /hpf U Epithel Cells (Auto) (0-5) /lpf Urine Bacteria (Auto) (Negative) 09/14/20 09/14/20 09/15/20 Range/Units 18:48 18:55 04:26 [place] # (Auto) 1.04 H (0.11-0.59) K/uL Chloride (98-107) mmol/L Anion Gap (3-11) POC BUN (7-18) mg/dl BUN (7-18) mg/dl BUN/Creatinine Ratio (10-20) Glucose (70-99) mg/dl POC Glucose 108 H (70-99) mg/dl POC Glucose (other) (70-99) mg/dl Triglycerides (0-150) mg/dl Cholesterol (0-200) mg/dl Urine Appearance Cloudy A (Clear) Ur Leukocyte Esterase 1+ H (Negative) Urine WBC (Auto) >30 H (0-5) /hpf U Epithel Cells (Auto) 10-20 H (0-5) /lpf Urine Bacteria (Auto) 1+ H (Negative) 09/15/20 Range/Units 04:26 [place] # (Auto) (0.11-0.59) K/uL Chloride 110 H (98-107) mmol/L Anion Gap 2.0 L (3-11) POC BUN (7-18) mg/dl BUN (7-18) mg/dl BUN/Creatinine Ratio (10-20) Glucose (70-99) mg/dl POC Glucose (70-99) mg/dl POC Glucose (other) (70-99) mg/dl Triglycerides 220 H (0-150) mg/dl Cholesterol 258 H (0-200) mg/dl Urine Appearance (Clear) Ur Leukocyte Esterase (Negative) Urine WBC (Auto) (0-5) /hpf U Epithel Cells (Auto) (0-5) /lpf Urine Bacteria (Auto) (Negative) Diagnostic Findings EEG-at the onset of the EEG the patient is awake. The background is symmetric and well organized. There is a normal anterior to posterior gradient with increased low-amplitude beta activity in the frontal head regions. The posterior dominant rhythm is 9-10 Hz. there is intermittent electrical and movement artifact. Drowsiness is characterized by increased theta activity, reduced blink rate, and decreased myogenic artifact. No stage 2 sleep transients are recorded. CT head-o acute intracranial hemorrhage, midline shift, intracranial mass, hydrocephalus, territorial ischemia or abnormal extra-axial collection. Age- related involutional changes. Mild patchy white matter hypodensities suggest chronic microvascular ischemic disease. Cerebral vascular calcifications. The calvarium is intact. Prior bilateral lens replacement. The paranasal sinuses, mastoid air cells, and middle ear cavities are clear. CTA High-grade stenosis at the origin of the right vertebral artery secondary to prominent calcified plaque. Moderate to severe mixed plaque of the left carotid bulb and proximal left ICA results in approximately 50% luminal narrowing. Aberrant course of the right subclavian artery.Otherwise unremarkable CTA of the head and neck. (1) Urinary tract infection without hematuria Urinary tract infection type: site unspecified Qualified Code(s): N39.0 - Urinary tract infection, site not specified
--- NOTE | 2020-09-15 16:07 | Hospitalist Progress Note ---
Date of Service September 15, 2020 Assessment & Plan (1) Transient amnesia: Present on admission for short term memory loss Ct head showed no acute intracranial abnormality CTA head/Neck showed high-grade stenosis at the origin of the right vertebral artery secondary to prominent calcified plaque.Moderate to severe mixed plaque of the left carotid bulb and proximal left ICA results in approximately 50% luminal narrowing. EEG showed no evidence of seizure No focal neuro deficit on exam Neuro on board ECHO pending Unable to obtain MRI due to being claustrophobic Continue Plavix and Zetia Back to baseline Continue monitor closely HTN BP elevated Pt said that she had reaction with Lisinopril, HCTZ and Norvasc Consider to add Hydralazine PO BID Continue monitor BP UTI Urine cx positibe for gram negative bacilli Continue IV Rocephin Will follow urine cx Gastroesophageal reflux disease. Continue omeprazole. Hyperlipidemia Total cholesterol 258, LDL 160, Triglycerides 220 and HDL 54 Continue Zetia. History of carotid stenosis S/P right carotid endarterectomy CTA head/Neck showed high-grade stenosis at the origin of the right vertebral artery secondary to prominent calcified plaque Zetia and Plavix. Deep vein thrombosis prophylaxis On SCDs, will add heparin sub Disposition Will discharge tomorrow Admission and Anticipated Discharge Date Admission Date: September 14, 2020 Subjective Pt was seen and examined for follow up of amnesia Pt was walking coming out of the bathroom with no difficulty She said that she feels fine She does not have any neuro focal deficit She said that she feels find Denies any chest pain, palpitation, SOB, dizziness and fever Physical Exam Physical Exam: General- No acute distress Head- atraumatic Eyes- PERRL, EOMI, ENT- oropharynx clear Neck- supple, no JVD Lungs- clear to auscultation Heart- regular rhythm; no murmur Abdomen- normal bowel sounds, soft, nontender Extremities- no calf tenderness Neuro- alert, oriented x 3; PERRL, EOMI; no facial palsy; no dysarthria Skin- warm & dry Results & Data Results & Data ([facility]) Vital Signs (Past 12 Hours) Vital Signs Temp Pulse Resp BP Pulse Ox 09/15/20 15:33 36.6 C 86 20 174/113 H 96 09/15/20 11:37 85 09/15/20 08:00 36.5 C 76 20 154/83 H 97 09/15/20 05:49 36.6 C 76 21 141/73 H
[2020-09-15] MEDS: hydrALAZINE 10 MG TAB PO SCH (16:39)
[2020-09-15] MEDS ORDERED: FUROSEMIDE 20 MG TAB PO SCH (17:00)
[2020-09-15] MEDS ORDERED: EZETIMIBE 10 MG TABLET PO SCH (21:00)
[2020-09-15] MEDS ORDERED: CETIRIZINE HCL 10 MG TABLET PO SCH (21:00)
[2020-09-15] MEDS ORDERED: METOPROLOL SUCC 50MG EXT REL TAB PO SCH (21:00)
--- NOTE | 2020-09-15 23:27 | Communication Note ---
Date of Service: September 15, 2020 Patient refusing Hydralazine medication citing possible headache side effect as per RN. Hold Hydralazine for now Will relay to AM provider.
[2020-09-16] MEDS: hydrALAZINE 10 MG TAB PO SCH (00:43)
[2020-09-16 06:41] LABS: Basophils # (auto) 0.03 K/uL (0-0.2); Basophils % (auto) 0.4 %; Eosinophils # (auto) 0.38 K/uL (0-0.5); Eosinophils % (auto) 4.8 %; Hematocrit (blood only) 41.4 % (37-47); Hemoglobin 13.7 g/dL (12.0-16.0); Immature Granulocytes # (auto) 0.01 K/uL (0.00-0.02); Immature Granulocytes % (auto) 0.1 %; Lymphocytes # (auto) 1.67 K/uL (1.2-3.4); Lymphocytes % (auto) 21.1 %; Mean Corpuscular Hemoglobin 30.1 pg (25-34); Mean Corpuscular Hgb Conc 33.1 g/dL (32-36); Mean Platelet Volume 9.8 fL (7.4-10.4); Monocytes # (auto) 1.04 K/uL (0.11-0.59); Monocytes % (auto) 13.1 %; Neutrophils % (auto) 60.5 %; Platelet Count 237 K/uL (130-400); RDW Coefficient of Variation 13.2 % (11.5-14.5); RDW Standard Deviation 43.6 fL (36.4-46.3); Red Blood Count 4.55 M/uL (4.2-5.4); White Blood Count 7.93 K/uL (4.8-10.8)
[2020-09-16 07:06] LABS: BUN Creatinine Ratio 15.9 (10-20); Calcium 9.4 mg/dl (8.5-10.1); Creatinine Clr Calc Pharmacy 80.5 ml/min; Est GFR (African American) 92.5; Est GFR (Non-African American) 79.8; Potassium 3.8 mmol/L (3.5-5.1)
[2020-09-16] MEDS: cefTRIAXone SODIUM 2,000 MG in DEXTROSE 5% 50 ML IV SCH (07:50)
[2020-09-16] MEDS: CYANOCOBALAMIN (VITAMIN B-12) 2,500 MCG TAB.SUBL SL SCH (07:51)
[2020-09-16] MEDS: CHOLECALCIFEROL 1,000 UNITS 25 MCG TAB PO SCH (07:51)
[2020-09-16] MEDS: CLOPIDOGREL BISULFATE 75 MG TAB PO SCH (07:51)
[2020-09-16] MEDS: PANTOprazole 40 MG TAB PO SCH (07:51)
[2020-09-16] MEDS: ADVANCED PROBIOTIC 1250 MG CAPSULE PO SCH (07:52)
[2020-09-16] MEDS: MULTIVITAMIN TAB PO SCH (11:56)
--- NOTE | 2020-09-16 12:51 | Hospitalist Progress Note ---
Date of Service September 16, 2020 Assessment & Plan (1) Transient amnesia: Present on admission for short term memory loss Ct head showed no acute intracranial abnormality CTA head/Neck showed high-grade stenosis at the origin of the right vertebral artery secondary to prominent calcified plaque.Moderate to severe mixed plaque of the left carotid bulb and proximal left ICA results in approximately 50% luminal narrowing. EEG showed no evidence of seizure No focal neuro deficit on exam Neuro on board Echo showed mild concentric LVH Left ventricular wall motion is normal. Ejection fraction 60 to 65%. Unable to obtain MRI due to being claustrophobic Continue Plavix and Zetia Ok from neurology to discharge Follow up with neurology Lesly Allen PAC schedule in 4-6 weeks HTN BP fluctuated Pt said that she had reaction with Lisinopril, HCTZ and Norvasc Hydralazine added yesterday but pt said that she had headache after taking it and was discontinued Continue monitor BP outpatient UTI Urine cx positibe for gram negative bacilli -Ecoli On IV Rocephin, will transition to PO Keflex Gastroesophageal reflux disease. Continue omeprazole. Hyperlipidemia Total cholesterol 258, LDL 160, Triglycerides 220 and HDL 54 Continue Zetia. Pt does not want to try any statin for now, but will talk to her PCP to try outpatient History of carotid stenosis S/P right carotid endarterectomy CTA head/Neck showed high-grade stenosis at the origin of the right vertebral artery secondary to prominent calcified plaque Zetia and Plavix. Deep vein thrombosis prophylaxis On SCDs Disposition Discharge home today Admission and Anticipated Discharge Date Admission Date: September 14, 2020 Subjective Pt was seen and examined for follow up of amnesia Sitting in chair with no distress Pt said that she feels ok She said that last night she had headache after taking the hydralazine She does not want to take any med for blood pressure because she had reaction with HCTZ, Lisinopril and Norvasc Denies any chest pain, palpitation, dizziness and SOB Physical Exam Physical Exam: General- No acute distress Head- atraumatic Eyes- PERRL, EOMI, ENT- oropharynx clear Neck- supple, no JVD Lungs- clear to auscultation Heart- regular rhythm; no murmur Abdomen- normal bowel sounds, soft, nontender Extremities- no calf tenderness Neuro- alert, oriented x 3; PERRL, EOMI; no facial palsy; no dysarthria Skin- warm & dry Results & Data Results & Data ([facility]) Vital Signs (Past 12 Hours) Vital Signs Temp Pulse Pulse Resp BP BP Pulse Ox 09/16/20 08:58 72 09/16/20 08:25 36.4 C L 74 20 145/82 H 96 09/16/20 05:35 36.4 C L 64 18 155/73 H 97
[2020-09-16] MEDS ORDERED: STROKE PATIENT DISCHARGE STA (13:19)
[2020-09-16] MEDS ORDERED: cephALEXin 500 MG CAP PO SCH (21:00)
--- NOTE | 2020-09-18 09:26 | Discharge Summary ---
Date of Service September 16, 2020 Admission HPI Per Admitting Provider CHIEF COMPLAINT: Transient global amnesia. HISTORY OF PRESENT ILLNESS: A 74-year-old female with past medical history significant for hypertension, hyperlipidemia, history of carotid artery stenosis, GERD, who lives with her daughter, who was brought in because of transient global amnesia. The patient today since 11:00 a.m. having some difficulty remembering things short-term. She could not recognize her son. She could not recognize her daughter checking the blood pressure. When daughter checked her blood pressure, the blood pressure was high and systolic in the 190s at which time the patient was brought to the hospital. As per daughter, the patient many years ago had similar episode. But that time, it was more severe than today. At that time, it was thought to be because of her elevated blood pressure. Currently, the patient seems to be improving. She still does not remember few things ,she does not remember her daughter checking blood pressure twice. Currently, patient's speech is clear. Alert and oriented x3. Could subtract 7 from 100 until which she was asked. Follows commands and answers all the questions appropriately. The patient currently denies any headache, but occasionally she gets some migraine headaches. No blurred vision, no double vision, no earache, no runny nose, no sore throat, no cough, no difficulty swallowing. No loss of sense of smell or taste. No fever, no chills, no shortness of breath, no chest pain, no nausea, no vomiting, no abdominal pain, no diarrhea, no constipation, no blood in stools or black stools. Has some burning micturition today. No rash anywhere. Sleeps okay. No recent weight gain or weight loss. No feeling hot or cold. Currently, resting comfortable and hemodynamically stable. Admission Exam Per Admitting Provider GENERAL: The patient is of moderate build, not in acute distress. VITAL SIGNS: Temperature 36.6, pulse 82, respiratory rate 23, blood pressure when she came in was 198/101, currently 168/92, oxygen 98% on room air. HEENT: Pupils equal, round, and reactive to light. Extraocular muscles intact. Oral mucosa moist. NECK: No JVD, no neck masses. CARDIOVASCULAR: S1, S2 heard, regular rate and rhythm, no murmur, no gallop. RESPIRATORY SYSTEM: Normal AP diameter. No accessory muscle use. No wheezing, no crackles. ABDOMEN: Soft, bowel sounds present, nontender. No distention. CENTRAL NERVOUS SYSTEM: Alert and oriented x3. Speech clear. No facial droop. Tongue midline. Judgment good. Power 5/5 in all extremities. Sensation is intact, position sense intact. No pronator drift. Coordination of movements normal. EXTREMITIES: Mild pedal edema present. No erythema seen. Principal Diagnosis Transient amnesia Hypertension Urinary track infection Gastroesophageal reflux disease Hyperlipidemia History of carotid stenosis Discharge Exam General- No acute distress Head- atraumatic Eyes- PERRL, EOMI, ENT- oropharynx clear Neck- supple, no JVD Lungs- clear to auscultation Heart- regular rhythm; no murmur Abdomen- normal bowel sounds, soft, nontender Extremities- no calf tenderness Neuro- alert, oriented x 3; PERRL, EOMI; no facial palsy; no dysarthria Skin- warm & dry Discharge Data Allergies Allergy/AdvReac Type Severity Reaction Status Date / Time aspirin Allergy Severe Anaphylaxis Verified 09/14/20 21:03 lisinopril Allergy Severe Difficulty Verified 09/14/20 21:03 Swallowing amlodipine [From Norvasc] Allergy Intermediate LEG Verified 09/14/20 21:03 SWELLING hydrochlorothiazide Allergy Intermediate Hives Verified 09/14/20 21:03 Cybrbrk-Yhi-Bvn Reductase Allergy Intermediate EFFECTED Verified 09/14/20 21:03 Inhibitor LIVER ENZYMES codeine Allergy Unknown Unverified 09/14/20 21:03 amoxicillin [From Augmentin] AdvReac Vomiting Unverified 09/14/20 21:03 clavulanic acid AdvReac Vomiting Unverified 09/14/20 21:03 [From Augmentin] Consultations 09/14/20 21:11 ED Decision to Admit Stat 09/14/20 22:57 Consult Case Management - Discharge Planning Routine Consult Case Management - Discharge Planning Routine 09/15/20 08:00 Consult Neurology Routine Ordered Studies 09/14/20 18:24 CT angio head w con Stat CT angio neck with con Stat CT head/brain wo con Stat CT angio neck with con, CT angio head w con CLINICAL HISTORY: 74 years-old Female with Stroke Like Symptoms. Acute strokelike symptoms COMPARISON STUDY: Head CT of same day TECHNIQUE: Following the IV administration of 116 mL of Optiray 320, CT angiogram of the head and neck was performed from the aortic arch to the skull apex. Images are reviewed in the axial, sagittal, and coronal planes. 3-D MIPS images are created and assessed. IV contrast was administered without complication. All measurements were calculated based on NASCET criteria. A dose lowering technique was utilized adhering to the principles of ALARA. FINDINGS: Aberrant right subclavian artery. Moderate mixed plaque of the thoracic aortic arch. Patency of the imaged subclavian arteries. The right common and internal carotid arteries are patent. The left common carotid artery is patent. There is moderate to severe mixed plaque of the left carotid bulb and proximal cervical segment left ICA which results in approximately 50% luminal narrowing. There is calcified plaque noted within the cavernous and supraclinoid segments, right greater than left without high-grade stenosis. The middle and anterior cerebral arteries appear patent. Dominant left vertebral artery. Calcified plaque of the V4 segment left vertebral artery results in mild stenosis. High-grade stenosis at the origin of the right vertebral artery secondary to calcified plaque. Basilar artery is patent. origin of the right posterior cerebral artery. Posterior cerebral arteries are widely patent. Cerebral venous sinuses are also patent. There is no abnormal intracranial enhancement. Lung apices are clear. No pneumothorax. Unremarkable soft tissues. Streak artifact from dental amalgam hardware. Prior bilateral lens replacement. Multilevel degenerative changes of the spine. IMPRESSION: 1. High-grade stenosis at the origin of the right vertebral artery secondary to prominent calcified plaque. 2. Moderate to severe mixed plaque of the left carotid bulb and proximal left ICA results in approximately 50% luminal narrowing. 3. Aberrant course of the right subclavian artery. 4. Otherwise unremarkable CTA of the head and neck. ACT 112: Negative or not required by law. The above report was generated using voice recognition software. It may contain grammatical, syntax or spelling errors. Electronically signed by: William Llanos M.D. 09/14/2020 7:46 PM Dictated: 09/14/201935Transcribed: 09/14/201935 CT angio neck with con, CT angio head w con CLINICAL HISTORY: 74 years-old Female with Stroke Like Symptoms. Acute strokelike symptoms COMPARISON STUDY: Head CT of same day TECHNIQUE: Following the IV administration of 116 mL of Optiray 320, CT angiogram of the head and neck was performed from the aortic arch to the skull apex. Images are reviewed in the axial, sagittal, and coronal planes. 3-D MIPS images are created and assessed. IV contrast was administered without complication. All measurements were calculated based on NASCET criteria. A dose lowering technique was utilized adhering to the principles of ALARA. FINDINGS: Aberrant right subclavian artery. Moderate mixed plaque of the thoracic aortic arch. Patency of the imaged subclavian arteries. The right common and internal carotid arteries are patent. The left common carotid artery is patent. There is moderate to severe mixed plaque of the left carotid bulb and proximal cervical segment left ICA which results in approximately 50% luminal narrowing. There is calcified plaque noted within the cavernous and supraclinoid segments, right greater than left without high-grade stenosis. The middle and anterior cerebral arteries appear patent. Dominant left vertebral artery. Calcified plaque of the V4 segment left vertebral artery results in mild stenosis. High-grade stenosis at the origin of the right vertebral artery secondary to calcified plaque. Basilar artery is patent. origin of the right posterior cerebral artery. Posterior cerebral arteries are widely patent. Cerebral venous sinuses are also patent. There is no abnormal intracranial enhancement. Lung apices are clear. No pneumothorax. Unremarkable soft tissues. Streak artifact from dental amalgam hardware. Prior bilateral lens replacement. Multilevel degenerative changes of the spine. IMPRESSION: 1. High-grade stenosis at the origin of the right vertebral artery secondary to prominent calcified plaque. 2. Moderate to severe mixed plaque of the left carotid bulb and proximal left ICA results in approximately 50% luminal narrowing. 3. Aberrant course of the right subclavian artery. 4. Otherwise unremarkable CTA of the head and neck. ACT 112: Negative or not required by law. The above report was generated using voice recognition software. It may contain grammatical, syntax or spelling errors. Electronically signed by: William Llanos M.D. 09/14/2020 7:46 PM Dictated: 09/14/201935Transcribed: 09/14/201935 CT head/brain wo con CLINICAL HISTORY: 74 years-old Female with Stroke Like Symptoms. Acute strokelike symptoms TECHNIQUE: Multiple axial CT images of the head were obtained without contrast. A dose lowering technique was utilized adhering to the principles of ALARA. CT DOSE: 1102.82 mGy.cm COMPARISON: Head CT 10/05/2019. FINDINGS: No acute intracranial hemorrhage, midline shift, intracranial mass, hydrocephalus, territorial ischemia or abnormal extra-axial collection. Age- related involutional changes. Mild patchy white matter hypodensities suggest chronic microvascular ischemic disease. Cerebral vascular calcifications. The calvarium is intact. Prior bilateral lens replacement. The paranasal sinuses, mastoid air cells, and middle ear cavities are clear. IMPRESSION: No acute intracranial abnormality. ACT 112: Negative or not required by law. The above report was generated using voice recognition software. It may contain grammatical, syntax or spelling errors. Electronically signed by: William Llanos M.D. 09/14/2020 7:30 PM Dictated: 09/14/201926Transcribed: 09/14/201926 XR chest 1V portable HISTORY: 74 years-old Female Stroke Like Symptoms acute strokelike symptoms COMPARISON: Chest radiograph 03/25/2019 TECHNIQUE: Portable AP view the chest FINDINGS: Cardiac silhouette is mildly enlarged. Calcified plaque of the thoracic aorta. No pneumothorax, pleural effusion, airspace consolidation or overt pulmonary edema. Bones of the chest appear grossly intact. IMPRESSION: No acute process. ACT 112: Negative or not required by law. The above report was generated using voice recognition software. It may contain grammatical, syntax or spelling errors. Electronically signed by: William Llanos M.D. 09/14/2020 6:47 PM Dictated: 09/14/201846Transcribed: 09/14/201846 Hospital Course (1) Transient amnesia: Present on admission for short term memory loss Ct head showed no acute intracranial abnormality CTA head/Neck showed high-grade stenosis at the origin of the right vertebral artery secondary to prominent calcified plaque.Moderate to severe mixed plaque of the left carotid bulb and proximal left ICA results in approximately 50% luminal narrowing. EEG showed no evidence of seizure No focal neuro deficit on exam Neuro on board Echo showed mild concentric LVH Left ventricular wall motion is normal. Ejection fraction 60 to 65%. Unable to obtain MRI due to being claustrophobic Continue Plavix and Zetia Ok from neurology to discharge Follow up with neurology Lesly Allen PAC schedule in 4-6 weeks HTN BP fluctuated Pt said that she had reaction with Lisinopril, HCTZ and Norvasc Hydralazine added yesterday but pt said that she had headache after taking it and was discontinued Continue monitor BP outpatient UTI Urine cx positibe for gram negative bacilli -Ecoli On IV Rocephin, will transition to PO Keflex Gastroesophageal reflux disease. Continue omeprazole. Hyperlipidemia Total cholesterol 258, LDL 160, Triglycerides 220 and HDL 54 Continue Zetia. Pt does not want to try any statin for now, but will talk to her PCP to try ou tpatient History of carotid stenosis S/P right carotid endarterectomy CTA head/Neck showed high-grade stenosis at the origin of the right vertebral artery secondary to prominent calcified plaque Zetia and Plavix. Deep vein thrombosis prophylaxis On SCDs Disposition Discharge home today Total Time Total Time Spent Total Time Spent (In Minutes): 35 minutes Total Time Includes: Examination of the Patient, Discharge Planning, Medication Reconciliation, Communication With Other Providers and Other Discharge Plan Discharge Items Patient Disposition: Home - Self-Care Reason For Visit: NEURO SYMPTOMS Discharge Diagnosis: Transient amnesia Hypertension Urinary track infection Gastroesophageal reflux disease Hyperlipidemia History of carotid stenosis Activity: Resume your previous activity Non-emergency contact: Primary Care Provider and Neurologist Call non-emergency contact if: you have any medication questions Follow-up/Referrals: Mercedes Kilgore DO [Primary Care Provider] - (Date & Time 09/21/2020 11:00 Donya Mack [facility] ) Diet: Heart Healthy and Low Sodium (2gm) Addtl Attending Provider Instructions: Follow up with primary care provider Dr. Jerad Mack (Dr. Kilgore's colleague) on 09/21/2020 at 11:00 AM Follow up with Neurology Lesly VICENTE in 4-6 weeks (office will contact you for the appointment) Continue monitor your blood pressure and bring your blood pressure log at your next follow up with your provider Follow up a low cholesterol diet Pending Studies at Discharge: No Stand-Alone Forms: [facility] [place] [facility], Smoking Cessation Medications and DC Order Prescriptions: New cephalexin 500 mg Capsule 500 mg PO BID 4 Days Qty: 8 RF: 0 Continued coenzyme Q10 [CoQ-10] 100 mg Capsule 100 mg PO QAM RF: 0 omega 1-eds-gvb-fish oil [Fish Oil] 1,000 mg (120 mg-180 mg) Capsule 1 cap PO QAM RF: 0 multivitamin Tablet 1 tab PO QDL RF: 0 cetirizine [Zyrtec] 10 mg Tablet 10 mg PO HS RF: 0 cholecalciferol (vitamin D3) [Vitamin D3] 1,000 unit Capsule 1,000 unit PO QAM RF: 0 omeprazole 20 mg Tablet,Delayed Release (Dr/Ec) 20 mg PO QAM RF: 0 Probiotic 3 billion cell Capsule 3,000 mmu cells PO QAM RF: 0 furosemide 20 mg tablet 10 mg PO Q OTHER DAY RF: 0 epinephrine [EpiPen] 0.3 mg/0.3 mL auto-injector 0.3 mg IM Q3H PRN (Reason: anaphylaxis) Qty: 1 RF: 3 Christy-C with Bioflavonoids 500-200 mg Tablet 1 tab PO BID RF: 0 clopidogrel [Plavix] 75 mg tablet 75 mg PO QAM RF: 0 garlic 400 mg Tablet,Delayed Release (Dr/Ec) 400 mg PO QPM RF: 0 cyanocobalamin (vitamin B-12) [Vitamin B-12] 2,500 mcg Tablet, Sublingual 2,500 mcg SUBLINGUAL DAILY RF: 0 metoprolol succinate [Toprol XL] 50 mg tablet extended release 24 hr 50 mg PO QPM RF: 0 diphenhydramine HCl [Benadryl] 25 mg Capsule 25 mg PO Q6H PRN (Reason: allergies) RF: 0 ezetimibe [Zetia] 10 mg tablet 10 mg PO QPM RF: 0 diclofenac sodium [Voltaren] 1 % Gel 1 g TOPICAL QID PRN (Reason: Pain) RF: 0 Gaviscon 80-14.2 mg Tablet,Chewable 1 tab PO UD PRN (Reason: Acid Reflux) RF: 0 Probiotic 3 billion cell Capsule 0 mmu cells PO DAILY RF: 0 Discharge Orders: Discharge Order (Routine); Ordered 09/16/20 Ordered By: Josemanuel Zacarias Admission Data Admit Date/Time: 09/14/20 21:17 Attending Provider: Josemanuel Zacarias Admit Provider: Maury Batres Primary Care Provider: Mercedes Kilgore Other Providers: Maury Batres ; Lesly Posada Other Interventions: Discharge Summary Assessment (RN) Last Done: 09/16/20 13:41
--- NOTE | 2020-09-29 14:27 | Coding Query ---
To promote full compliance with coding requirements relating to patient care, provider participation is requested in all cases of halver machine operator uncertainty. Please assist us with the question(s) below: Coding Question(s): The diagnosis(es) below was documented in the Neurology Consultation, then subsequently fell off all further documentation. Please indicate if it is still a possible diagnosis or ruled out. Physician's Response(s): STROKE ( ) Diagnosed and POA ( ) Diagnosed and not POA ( x ) Ruled out ( ) Other (please specify) TIA ( x ) Diagnosed and POA ( ) Diagnosed and not POA ( ) Ruled out ( ) Other (please specify) MTDD
--- NOTE | 2020-09-29 14:32 | Coding Query ---
CODING QUERY To promote full compliance with coding requirements relating to patient care, provider participation is requested in all cases of renewable energy division manager uncertainty. Please assist us with the question(s) below: Coding Question(s): There is documentation of Transient Global Anemia in the record and documentation of, Moderate to severe mixed plaque of the left carotid bulb and proximal left ICA results in approximately 50% luminal narrowing shown on CTA head/neck. Please specify below, in your clinical opinion. ( ) Transient Global Anemia is due to Left Carotid bulb and proximal Left ICA Stenosis ( x ) Transient Global [place] is NOT due to Left Carotid bulb and proximal Left ICA Stenosis ( ) Other: Please Specify Physician's Response(s): Thank you Rosa Elena Weber Principal Diagnosis: "that condition established after study, to be chiefly responsible for occasioning the admission of the patient to the hospital for care." Co-Existing Principal Diagnosis: "when two or more diagnoses equally meet the criteria for principal diagnosis as determined by the circumstances of admission, diagnostic work up, and/or therapy provided, and the Alphabetic Index, Tabular List, or another coding guideline does not provide sequencing direction, any one of the diagnoses may be sequenced first." "When the physician has documented what appears to be a current diagnosis in the body of the record, but has not included the diagnosis in the final diagnostic statement, the physician should be asked whether the diagnosis should be added." (Source Coding [facility] 2 QTR90. p3-4) EDA
== END 2020-09-16 14:11 | disposition home or self-care (01) | DRG 71 ==
LOC: ED 18:11 → 1E 21:17 → 2S 09-15 11:27